=== PATIENT | female | born 1935 | race Caucasian/White ===

== ENCOUNTER 2017-10-02 10:01 | Emergency (ER) | payer MEDICARE, MEDICAID ==
--- NOTE | 2017-10-02 10:34 | EDM.PDOC ---
ED HPI GENERAL MEDICAL PROBLEM - General Chief Complaint: General Stated Complaint: ABDOMINAL PAIN/HEADACHE Time Seen by Provider: 10/02/17 10:24 - History of Present Illness INITIAL COMMENTS - FREE TEXT/NARRATIVE: 82-year-old female presents to the emergency room with multiple complaints. The patient is brought in by her fellow sisters. Apparently she's has advanced dementia. Yesterday she slept most the day complaining of abdominal pain and a headache every time she tries and moves she developed significant discomfort in her left knee. She has been having problems with her left knee for nearly a year this seems to be worse after she rests for a little bit gets up and walks around. They're also concerned as the patient stopped her thyroid medication several months ago. They have problems getting her to drink plenty of fluids. She has abdominal discomfort not associated with any nausea vomiting or diarrhea.. Chest Pain Score (Numeric/FACES): 5 Headache Pain Score (Numeric/FACES): 5 - Related Data Allergies Allergy/AdvReac Type Severity Reaction Status Date / Time aspirin Allergy Swollen Verified 10/02/17 10:27 Tongue Penicillins Allergy Swollen Verified 10/02/17 10:27 Tongue phenytoin sodium Allergy Weakness Verified 10/02/17 10:27 [From Dilantin] phenytoin sodium extended Allergy Weakness Verified 10/02/17 10:27 [From Dilantin] Home Meds: Home Meds Isosorbide Mononitrate [Isosorbide Mononitrate ER] 30 mg PO DAILY 04/12/14 [ History] Levothyroxine 25 mcg PO ACBRK 04/12/14 [History] atorvaSTATin [Lipitor] 20 mg PO BEDTIME 04/12/14 [History] Acetaminophen [Tylenol] 325 mg PO Q6H PRN 04/13/14 [History] Calcium Carbonate/Vitamin D2 [Calcium with Vit D] 1 each PO DAILY 04/13/14 [ History] Fluocinonide [Lidex 0.05% Crm] 15 gm .XX DAILY PRN 04/13/14 [History] LORazepam [Ativan] 0.5 mg PO BID PRN 04/13/14 [History] Multivitamin [Multi-Vitamin Daily] 1 each PO DAILY 04/13/14 [History] Nitroglycerin [Nitrostat] 0.4 mg SL DAILY PRN 06/20/14 [History] Polyethylene Glycol 3350 [MiraLAX] 17 gm PO DAILY PRN 04/13/14 [History] Triamcinolone Acetonide [Triamcinolone Acetonide 0.1% Crm] 15 gm TOP DAILY 04/13 [History] lamoTRIgine 100 mg PO BID #60 tablet 11/01/14 [Rx] Social & Family History - Tobacco Use Smoking Status *Q: Never Smoker Second Hand Smoke Exposure: No - Alcohol Use Days Per Week of Alcohol Use: 0 - Recreational Drug Use Recreational Drug Use: No Drug Use in Last 12 Months: No ED ROS GENERAL - Review of Systems Review Of Systems: See Below Constitutional: Reports: No Symptoms HEENT: Reports: No Symptoms Respiratory: Reports: No Symptoms Cardiovascular: Reports: No Symptoms Endocrine: Reports: No Symptoms GI/Abdominal: Reports: Abdominal Pain : Reports: No Symptoms Musculoskeletal: Reports: Other (Left knee pain) Skin: Reports: No Symptoms Neurological: Reports: Confusion Psychiatric: Reports: Other (Dementia) ED EXAM, GENERAL - Physical Exam Exam: See Below Exam Limited By: Other (She has dementia) Eye Exam: Bilateral Eye: Normal Inspection, PERRL Ears: Normal External Exam, Normal Canal, Hearing Grossly Normal, Normal TMs Nose: Normal Inspection, Normal Mucosa, No Blood Throat/Mouth: Normal Inspection, Normal Lips, Normal Gums, Normal Oropharynx, Normal Voice, No Airway Compromise Head: Atraumatic, Normocephalic Neck: Normal Inspection, Supple, Non-Tender, Full Range of Motion. No: Lymphadenopathy (L), Lymphadenopathy (R) Respiratory/Chest: No Respiratory Distress, Lungs Clear Cardiovascular: Regular Rate, Rhythm, No Edema, No Murmur GI/Abdominal: Normal Bowel Sounds, Soft, Other (She has some vague discomfort interestingly she complains of knee pain with palpation of her abdomen her abdomen is otherwise soft no distention no rebound or guarding) Extremities: Normal Inspection, No Pedal Edema Neurological: Confused EKG INTERPRETATION EKG Date: 10/02/17 Rhythm: NSR Marty: LAD-Left Marty Deviation P-Wave: Present QRS: Normal ST-T: Normal QT: Normal Comparison: NA - No Prior EKG Course - Vital Signs Last Recorded V/S: Last Vital Signs Temp 36.8 C 10/02/17 10:27 Pulse 80 10/02/17 10:27 Resp BP 155/83 H 10/02/17 10:27 Pulse Ox 94 L 10/02/17 10:27 - Orders/Labs/Meds Orders: Active Orders 24 hr Category Date Time Status EKG Documentation Completion [RC] ASDIRECTED Care 10/02/17 10:39 Active Insert De Souza Catheter [Insert Urinary Catheter] [OM.PC] Care 10/02/17 11:05 Ordered Stat Urinary Catheter Assessment [RC] ASDIRECTED Care 10/02/17 11:05 Active Chest 1V Frontal [CR] Stat Exams 10/02/17 10:52 Taken Knee 3V Lt [CR] Stat Exams 10/02/17 10:53 Taken EKG 12 Lead [EK] Stat Ther 10/02/17 10:39 Ordered Labs: Laboratory Tests 10/02/17 10/02/17 10/02/17 Range/Units 11:05 11:10 11:10 WBC 8.06 (3.98-10.04) K/mm3 RBC 4.41 (3.98-5.22) M/mm3 Hgb 13.3 (11.2-15.7) gm/L Hct 40.2 (34.1-44.9) % MCV 91.2 (79.4-94.8) fl MCH 30.2 (25.6-32.2) pg MCHC 33.1 (32.2-35.5) g/dl RDW Std Deviation 42.7 (36.4-46.3) fL Plt Count 217 (182-369) K/mm3 MPV 9.5 (9.4-12.3) fl Neutrophils % (Manual) 64 H (40-60) % Band Neutrophils % 0 (0-10) % Lymphocytes % (Manual) 23 (20-40) % Atypical Lymphs % 0 % Monocytes % (Manual) 11 H (2-10) % Eosinophils % (Manual) 0 L (0.7-5.8) % Basophils % (Manual) 2 H (0.1-1.2) Platelet Estimate Adequate Anisocytosis 1+ slight RBC Morph Comment Abnormal Sodium 144 (136-145) mEq/L Potassium 3.7 (3.5-5.1) mEq/L Chloride 107 (98-107) mEq/L Carbon Dioxide 26 (21-32) mEq/L Anion Gap 14.7 (5-15) BUN 28 H (7-18) mg/dL Creatinine 1.0 (0.55-1.02) mg/dL Est Cr Clr Drug Dosing 33.71 mL/min Estimated GFR (MDRD) 53 (>60) mL/min BUN/Creatinine Ratio 28.0 H (14-18) Glucose 91 (83-115) mg/dL Calcium 9.6 (8.5-10.1) mg/dL Total Bilirubin 0.7 (0.2-1.0) mg/dL AST 20 (15-37) U/L ALT 23 (14-59) U/L Alkaline Phosphatase 64 (46-116) U/L Troponin I < 0.017 (0.00-0.056) ng/mL Total Protein 7.0 (6.4-8.2) g/dl Albumin 3.8 (3.4-5.0) g/dl Globulin 3.2 gm/dL Albumin/Globulin Ratio 1.2 (1-2) TSH 3rd Generation 2.210 (0.358-3.74) uIU/mL Urine Color Yellow (Yellow) Urine Appearance Clear (Clear) Urine pH 6.5 (5.0-8.0) Ur Specific [place] 1.020 (1.005-1.030) Urine Protein 1+ H (Negative) Urine Glucose (UA) Negative (Negative) Urine Ketones 1+ H (Negative) Urine Occult Blood 1+ H (Negative) Urine Nitrite Negative (Negative) Urine Bilirubin Negative (Negative) Urine Urobilinogen 0.2 (0.2-1.0) Ur Leukocyte Esterase Negative (Negative) Urine RBC 0-5 (0-5) /hpf Urine WBC 0-5 (0-5) /hpf Ur Epithelial Cells 0-5 (0-5) /hpf Urine Bacteria Rare (FEW) /hpf Hyaline Casts 5-10 H (0-5) /lpf Urine Mucus Moderate H (FEW) /hpf Meds: Medications Discontinued Medications Generic Name Dose Route Start Last Admin Trade Name Freq PRN Reason Stop Dose Admin Acetaminophen 650 mg 10/02/17 11:17 10/02/17 12:20 Tylenol PO 10/02/17 11:18 Not Given ONETIME ONE Acetaminophen 650 mg 10/02/17 12:13 10/02/17 12:18 Tylenol PO 10/02/17 12:14 650 mg NOW ONE Administration - Re-Assessments/Exams Free Text/Narrative Re-Assessment/Exam: 10/02/17 13:15 Patient received 650 mg Tylenol feels much better her headache is not any pain is not her belly pain is gone R evaluation is unrevealing TSH is in the normal range x-ray of her chest is negative EKG nonrevealing x-ray of her knee shows extensive arthritis. Departure - Departure Time of Disposition: 13:15 Disposition: Home, Self-Care 01 Clinical Impression: Arthritis of left knee, Cephalgia - Discharge Information Referrals: PCP,None [Primary Care Provider] - Forms: ED Department Discharge Additional Instructions: Return to the emergency room with any questions problems worsening symptoms. Follow up with her regular physician in one week or so. Use Tylenol regular strength one or 2 every 6 hours as needed for pain. It is essential that you drink more fluids such as water or Gatorade. Push this until you are voiding every couple of hours during the day. Most year daily fluids should be taken in the morning and early afternoon. - My Orders Last 24 Hours: My Active Orders 10/02/17 10:39 EKG Documentation Completion [RC] ASDIRECTED EKG 12 Lead [EK] Stat 10/02/17 10:52 Chest 1V Frontal [CR] Stat 10/02/17 10:53 Knee 3V Lt [CR] Stat 10/02/17 11:05 Insert De Souza Catheter [Insert Urinary Catheter] [OM.PC] Stat Urinary Catheter Assessment [RC] ASDIRECTED - Assessment/Plan Last 24 Hours: My Active Orders 10/02/17 10:39 EKG Documentation Completion [RC] ASDIRECTED EKG 12 Lead [EK] Stat 10/02/17 10:52 Chest 1V Frontal [CR] Stat 10/02/17 10:53 Knee 3V Lt [CR] Stat 10/02/17 11:05 Insert De Souza Catheter [Insert Urinary Catheter] [OM.PC] Stat Urinary Catheter Assessment [RC] ASDIRECTED
[2017-10-02] MEDS ORDERED: Acetaminophen Soln 650 MG/20.3 ML UD Cup PO ONE (11:17)
[2017-10-02] MEDS ORDERED: Acetaminophen 325 MG Tab PO ONE (12:13)
[2017-10-02 13:55] VITALS: BP 163/74
--- NOTE | 2017-10-02 16:07 | CR ---
Left knee: AP, lateral and sunrise patellar views of the left knee were obtained. Comparison: No prior left knee exam is available. Moderate to severe narrowing is seen within the lateral compartment. Medial joint is preserved. Osteophyte is noted off the lateral tibial margin. Mild osteophytes are seen off the patellofemoral joint. Very minimal joint effusion is seen. Bony structures are osteopenic. Nothing acute is identified. Impression: 1. Degenerative change and osteopenia. 2. Minimal joint effusion. Diagnostic code #2
--- NOTE | 2017-10-02 16:07 | CR ---
Chest: Frontal view of the chest was obtained. Comparison: Prior chest x-ray of 10/30/14. Heart size and mediastinum are within normal limits for the patient's age. Right shoulder prosthesis is noted. Lungs are clear. Scattered degenerative change noted within the spine as well as degenerative change within the left shoulder. Impression: 1. Incidental findings as noted above. Nothing acute is appreciated on frontal chest x-ray. Diagnostic code #2
== END 2017-10-02 13:30 | disposition home or self-care (01) ==
LOC: JD.ED 10:01
DX: M17.12 Unilateral primary osteoarthritis, left knee (principal); R51 Headache; Z88.6 Allergy status to analgesic agent; Z88.0 Allergy status to penicillin; Z88.8 Allergy status to other drugs, medicaments and biological substances; Z79.899 Other long term (current) drug therapy
CPT/HCPCS: 36415; 51702; 71010; 73562; 80053; 81001; 84443; 84484; 85025; 93005; 99285; A9270; P9612; 93010; 99284

== ENCOUNTER 2017-12-17 22:30 | Emergency (ER) | payer MEDICARE, MEDICAID ==
[2017-12-17 22:35] VITALS: BP 163/69
--- NOTE | 2017-12-17 23:23 | EDM.PDOC ---
ED HPI GENERAL MEDICAL PROBLEM - General Chief Complaint: Neurological Problem Stated Complaint: [facility] Time Seen by Provider: 12/17/17 23:12 Source of Information: Reports: Patient, [facility] Records History Limitations: Reports: No Limitations - History of Present Illness INITIAL COMMENTS - FREE TEXT/NARRATIVE: 82-year-old female currently a resident of [facility] presents to the ED per ambulance. She is able to provide a very thorough history. She states she got up to walk away from the dining area and her walker came in contact with the wall causing her to fall. She states she bumped the back of her head on the wall on the way down to the floor but went out to the floor fairly gently. Did not get knocked out. Subsequently she has not had any nausea vomiting. The care workers identified that her pupils appeared to be unequal and this is what helped precipitate transfer to [facility]. She states she bumped the back of her head i.e. occipital vertex part of her scalp without any residual pain or swelling. She has no pain in her neck. She denies pain in her elbows wrists or shoulders ribs or spine. Denies any pain in her low back or but talks. No hip pain. She is alert and oriented and answers all questions appropriately. She does wear eyeglasses. She does not use any drops in her eyes other than some artificial tears once in a while. She has no history of glaucoma or eye trauma. Onset: Today Onset Date: 12/17/17 Onset Time: 21:45 Duration: Minutes:, Hour(s): Location: Reports: Head Quality: Reports: Other Severity: Mild (She denies having even a headache at this time.) Improves with: Reports: None Worsens with: Reports: None Context: Reports: Trauma (Got tripped up with her walker when it struck the wall causing her to lose her balance and fall to the floor slowly. She states she banged the back of her head on the wall on the way to the floor.) Associated Symptoms: Reports: No Other Symptoms Treatments NUTRITION WORKER: Reports: Other (see below) (None.) - Related Data Allergies Allergy/AdvReac Type Severity Reaction Status Date / Time aspirin Allergy Swollen Verified 10/02/17 10:27 Tongue Penicillins Allergy Swollen Verified 10/02/17 10:27 Tongue phenytoin sodium Allergy Weakness Verified 10/02/17 10:27 [From Dilantin] phenytoin sodium extended Allergy Weakness Verified 10/02/17 10:27 [From Dilantin] Home Meds: Home Meds Levothyroxine 25 mcg PO ACBRK 04/12/14 [History] atorvaSTATin [Lipitor] 20 mg PO BEDTIME 04/12/14 [History] Acetaminophen [Tylenol] 650 mg PO Q12H PRN 04/13/14 [History] Nitroglycerin [Nitrostat] 0.4 mg SL DAILY PRN 04/13/14 [History] Polyethylene Glycol 3350 [MiraLAX] 17 gm PO DAILY PRN 04/13/14 [History] lamoTRIgine 100 mg PO BID #60 tablet 11/01/14 [Rx] Baclofen 10 mg PO TID PRN 10/02/17 [History] Lisinopril 2.5 mg PO DAILY 12/17/17 [History] Metoprolol Succinate [Toprol XL] 25 mg PO DAILY 12/17/17 [History] Ondansetron HCl [Zofran] 1 tab PO Q8H PRN 12/17/17 [History] Ranitidine HCl [Zantac] 150 mg PO BEDTIME 12/17/17 [History] Sertraline [Zoloft] 25 mg PO DAILY 12/17/17 [History] Past Medical History Cardiovascular History: Reports: High Cholesterol, Hypertension Neurological History: Reports: Seizure Psychiatric History: Reports: Dementia, Depression Endocrine/Metabolic History: Reports: Hypothyroidism (And is on replacement therapy.) Dermatologic History: Reports: Other (See Below) Other Dermatologic History: very dry and flakey skin - Past Surgical History HEENT Surgical History: Reports: Tonsillectomy GI Surgical History: Reports: Appendectomy Social & Family History - Tobacco Use Smoking Status *Q: Never Smoker Second Hand Smoke Exposure: No - Caffeine Use Caffeine Use: Reports: Coffee, Soda - Alcohol Use Days Per Week of Alcohol Use: 0 - Recreational Drug Use Recreational Drug Use: No Drug Use in Last 12 Months: No - Living Situation & Occupation Living situation: Reports: Single, Extended Care Facility ([facility]) Occupation: Retired Review of Systems - Review of Systems Review Of Systems: See Below Constitutional: Reports: No Symptoms Eyes: Reports: No Symptoms Ears: Reports: No Symptoms Nose: Reports: No Symptoms Mouth/Throat: Reports: No Symptoms Respiratory: Reports: No Symptoms Cardiovascular: Reports: No Symptoms GI/Abdominal: Reports: No Symptoms Genitourinary: Reports: Other (Does have some urgency incontinence at times.) Musculoskeletal: Reports: Joint Pain (Knees hips shoulders at times.) Skin: Reports: Other (Has chronic eczematous dermatitis which is quite pruritic degree upper and lower extremities.) Neurological: Reports: No Symptoms Psychiatric: Reports: No Symptoms ED EXAM, GENERAL - Physical Exam Exam: See Below Exam Limited By: No Limitations General Appearance: Alert, WD/WN, No Apparent Distress Eye Exam: Bilateral Eye: Normal Fundi, Other (Pupils are equal. The right pupil is fixed at 5 mm and does not respond to light. This represents previous eye trauma or uveitis. The left eye is 3-4 mm and responds briskly to light.) Ears: Normal TMs Throat/Mouth: Normal Inspection, Normal Lips, Normal Oropharynx, Other Head: Other (No sign of injury to her teeth or her tongue. No palpable hematoma of the scalp or skull appreciated.) Neck: Normal Inspection, Supple, Non-Tender, Full Range of Motion. No: Lymphadenopathy (L), Lymphadenopathy (R) Respiratory/Chest: No Respiratory Distress, Lungs Clear, Normal Breath Sounds, Chest Non-Tender, Other Cardiovascular: Normal Peripheral Pulses, Regular Rate, Rhythm, No Edema, No Gallop, No Murmur Peripheral Pulses: 2+: Posterior Tibial (L), Posterior Tibial (R), Dorsalis Pedis (L), Dorsalis Pedis (R) GI/Abdominal: Normal Bowel Sounds, Soft, Non-Tender, No Organomegaly, No Abnormal Bruit, No Mass, Pelvis Stable Back Exam: Normal Inspection, Full Range of Motion, Other (No contusions or abrasions to her back). No: CVA Tenderness (L), CVA Tenderness (R) Extremities: Normal Inspection, Normal Range of Motion, Non-Tender, No Pedal Edema, Other (She lifts both legs off the gurney better than I can. There is no evidence of injuries to the hips knees elbows shoulders wrists or hands.) Neurological: Alert, Oriented, CN II-XII Intact, Normal Cognition, No Motor/ Sensory Deficits Psychiatric: Normal Affect, Normal Mood Skin Exam: Warm, Dry, Intact, Normal Color, No Rash Course - Vital Signs Last Recorded V/S: Last Vital Signs Temp 36.2 C 12/17/17 22:33 Pulse 90 12/17/17 22:33 Resp 18 12/17/17 22:33 BP 163/69 H 12/17/17 22:33 Pulse Ox 97 12/17/17 22:33 - Orders/Labs/Meds Orders: Active Orders 24 hr Category Date Time Status Head wo Cont [CT] Stat Exams 12/17/17 23:22 Taken - Radiology Interpretation Free Text/Narrative:: 82-year-old female brought to the ED per mL is due to anisocoria. She suffered a fall after she bumped into the wall with her walker which precipitated a fall with her bathing the exceptional aspect of her head on the back of the wall on the way to the floor. She states she went down to the floor slowly. She denies any other injuries and she has full recollection of all the events that occurred. She did not think that she had been injured. Her eyes however on examination suggested anisocoria with one pupil being larger than the other. On my examination she has a fixed right cornea. 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 She denies any previous eye trauma. Clinically there is no evidence of glaucoma. The left pupil is 4 mm and respond briskly to light. There is no light response to the right pupil. This will be forever. The rest of her neurological exam and complete body examination is negative for any signs of significant trauma. Triage nurse's ordered CT head as a precaution due to the nature of her fall. - Re-Assessments/Exams Free Text/Narrative Re-Assessment/Exam: 12/18/17 00:24 CT scan of the head has been completed. It reveals no skull fractures. It reveals no intracranial mass or mass effect and no intracranial bleeding. There is evidence of age-appropriate degenerative changes with mild encephalomalacia at the anterior horns of the lateral ventricles bilaterally. There is diffuse small vessel ischemic changes both basal ganglia. No infarcts were identified patient will therefore be discharged back to [facility] for ongoing care. 12/18/17 01:07 [facility] and ambulance is here to provide transport back to [facility]. Patient was discharged into their care. Departure - Departure Time of Disposition: 00:25 Disposition: DC/[facility]fer to [facility] Condition: Good Clinical Impression: Minor closed head injury, Fixed pupil of right eye - Discharge Information Instructions: Head Injury, Adult, [id number] Referrals: Mariely Meza MD [Primary Care Provider] - Forms: ED Department Discharge Additional Instructions: Evaluation the emergency room was carried out tonight after you got tripped up with her walker and struck the wall. Disconjugate to fall backwards against the wall striking the back of your occipital head on the wall and as you suggested sliding slowly down to the floor. There was no loss of consciousness and you have for memory for everything that happened. Care workers identify that you had unequal pupils and this became a concern. Year neuro exam in the emergency room was completely within normal limits. Examination of the eyes shows a day a fixed pupillary deficit on the right side likely due to previous trauma injury or infection of the uvea.. It will never respond normally to light. The left pupil is 4-5 mm in size and respond briskly to light appropriately. CT of the brain completed reveals no skull fractures or intracranial bleeding or mass effect. There are age related degenerative changes. Therefore you are to be discharged back to care Center to continue all activities and medications as previous. - My Orders Last 24 Hours: My Active Orders 12/17/17 23:22 Head wo Cont [CT] Stat - Assessment/Plan Last 24 Hours: My Active Orders 12/17/17 23:22 Head wo Cont [CT] Stat
--- NOTE | 2017-12-18 14:04 | CT ---
Head CT Technique: Multiple axial sections through the brain were obtained. Intravenous contrast was not utilized. Comparison: Prior head CT exam of 10/30/14. Findings: Ventricles along with basal cisterns and sulci over the convexities are mildly to moderately prominent. Mild diminished density is noted within the periventricular and subcortical white matter compatible with small vessel ischemic demyelination change. 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 No evidence of intracranial hemorrhage. No midline shift or mass effect is seen. Visualized paranasal sinuses are clear. No acute calvarial abnormality is identified. Impression: 1. Senescent change as described above. No acute abnormality is identified on noncontrast head CT study. Diagnostic code #2 I agree with preliminary report issued by [employer] [facility] ([facility] preliminary report dictated on 12/18/17, 12:39 AM Central Time)
== END 2017-12-18 00:40 ==
LOC: JD.ED 22:30 → SUPCPDRO 22:30 → JD.ED 12-18 00:40
DX: S09.90XA Unspecified injury of head, initial encounter (principal); H21.561 Pupillary abnormality, right eye; I10 Essential (primary) hypertension; E78.00 Pure hypercholesterolemia, unspecified; F32.9 Major depressive disorder, single episode, unspecified; E03.9 Hypothyroidism, unspecified; Z79.899 Other long term (current) drug therapy; W01.10XA Fall on same level from slipping, tripping and stumbling with subsequent striking against unspecified object, initial encounter
CPT/HCPCS: 70450; 70450-26; 99284; 99285-25

== ENCOUNTER 2019-01-15 22:14 | Emergency (ER) | payer MEDICARE, MEDICAID ==
--- NOTE | 2019-01-15 22:57 | EDM.PDOC ---
ED HPI GENERAL MEDICAL PROBLEM - General Chief Complaint: Neuro Symptoms/Deficits Stated Complaint: DIZZY ECT SENT MICHELLE CHURCH Time Seen by Provider: 01/15/19 22:52 Source of Information: Reports: Patient, Other (care provider from snf. ) History Limitations: Reports: No Limitations - History of Present Illness INITIAL COMMENTS - FREE TEXT/NARRATIVE: 83-year-old female presents to the ED per ambulance from local snf. Family she developed a spell where she was confused and completely disoriented and could not verbally communicate which he usually is able to do so. They felt that her right pupil is more dilated than the left. They note that she has not fallen or hit her head at all in the last day or 2. Patient converses with me in the basal commands. She has underlying dementia. CODE STATUS is listed as DO NOT RESUSCITATE. No noted fever chills and apparently she's been eating and drinking normally. The Provider this with her states that normally she could've obeyed and aassisted with my examination as she did when she was in the ED. Onset: Today Onset Date: 01/15/19 Onset Time: 22:00 Duration: Hour(s):, Resolved Prior to Arrival Location: Reports: Generalized (Underlies sense of confusion disorientation apparently O2 sats were recorded at 86% transiently.) Quality: Reports: Other (She denies any pain or nausea.) Severity: Moderate Improves with: Reports: Other Worsens with: Reports: None (He seems to be better now neurologically intact as discussed with the care provider this with her at this time) Context: Denies: Activity, Exercise, Lifting, Sick Contact, Trauma, Other Associated Symptoms: Reports: Confusion. 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.) - Related Data Allergies Allergy/AdvReac Type Severity Reaction Status Date / Time aspirin Allergy Swollen Verified 01/15/19 23:03 Tongue Penicillins Allergy Swollen Verified 01/15/19 23:03 Tongue phenytoin sodium Allergy Weakness Verified 01/15/19 23:03 [From Dilantin] phenytoin sodium extended Allergy Weakness Verified 01/15/19 23:03 [From Dilantin] Home Meds: Home Meds Levothyroxine 25 mcg PO ACBRK 04/12/14 [History] atorvaSTATin [Lipitor] 20 mg PO BEDTIME 04/12/14 [History] Acetaminophen [Tylenol] 650 mg PO Q12H PRN 04/13/14 [History] Nitroglycerin [Nitrostat] 0.4 mg SL DAILY PRN 04/13/14 [History] Polyethylene Glycol 3350 [MiraLAX] 17 gm PO DAILY PRN 04/13/14 [History] lamoTRIgine 100 mg PO BID #60 tablet 11/01/14 [Rx] Baclofen 10 mg PO TID PRN 10/02/17 [History] Lisinopril 2.5 mg PO DAILY 12/17/17 [History] Metoprolol Succinate [Toprol XL] 25 mg PO DAILY 12/17/17 [History] Ondansetron HCl [Zofran] 1 tab PO Q8H PRN 12/17/17 [History] Ranitidine HCl [Zantac] 150 mg PO BEDTIME 12/17/17 [History] Sertraline [Zoloft] 25 mg PO DAILY 12/17/17 [History] Past Medical History Cardiovascular History: Reports: High Cholesterol, Hypertension Neurological History: Reports: Seizure Psychiatric History: Reports: Dementia, Depression Endocrine/Metabolic History: Reports: Hypothyroidism (And is on replacement therapy.) Dermatologic History: Reports: Other (See Below) Other Dermatologic History: very dry and flakey skin - Past Surgical History HEENT Surgical History: Reports: Cataract Surgery (Both sides. Has anisocoria on the right side due to previous cataract surgery), Tonsillectomy GI Surgical History: Reports: Appendectomy Social & Family History - Caffeine Use Caffeine Use: Reports: Coffee, Soda - Living Situation & Occupation Living situation: Reports: Single, Extended Care Facility ([facility]) Occupation: Retired ED ROS GENERAL - Review of Systems Review Of Systems: Unable To Obtain (Unable to obtain with any degree of certainty due to underlying dementia. History is provided primarily by the care provider.) ED EXAM, NEURO - Physical Exam Exam: See Below Exam Limited By: Altered Mental Status (Mild dementia but she obeys all my commands. Comply with a complete neuro exam without any issues. Verbally intact and with no dysarthria.) General Appearance: Alert, WD/WN, No Apparent Distress, Other (She does not feel warm to palpation.) Eye Exam: Bilateral Eye: PERRL (Right pupil is fixed and dilated due to previous surgery.) Throat/Mouth: Normal Inspection, Normal Lips, Normal Oropharynx, Other Head Exam: Atraumatic, Normocephalic (Tongue is mildly dry.) Neck: Normal Inspection, Supple, Non-Tender, Full Range of Motion. No: Lymphadenopathy (L), Lymphadenopathy (R) Respiratory/Chest: No Respiratory Distress, Lungs Clear, Normal Breath Sounds, No Accessory Muscle Use Cardiovascular: Normal Peripheral Pulses, Regular Rate, Rhythm, No Edema, No Gallop, No Murmur, No Rub GI/Abdominal: Normal Bowel Sounds, Soft, Non-Tender, No Organomegaly, No Abnormal Bruit, No Mass, Pelvis Stable Neurological: Alert, Normal Mood/Affect, Normal Dorsiflexion, CN II-XII Intact, Normal Plantar Flexion, Normal Reflexes, No Motor/Sensory Deficits. No: Oriented x 3 Back Exam: Other Extremities: Normal Inspection, Normal Range of Motion, Non-Tender Psychiatric: Flat Affect Skin Exam: Warm, Dry, Intact, Normal Color, No Rash EKG INTERPRETATION EKG Date: 01/15/19 Time: 22:40 Rhythm: NSR Rate (Beats/Min): 66 [place]: LAD-Left Dorado Deviation P-Wave: Enlarged (Mild left axis deviation -7 left atrial hypertrophy.) QRS: Other (Early R-wave transition V3 consider septal hypertrophy pattern Q- wave in lead 3 only. Disagree with computer reading of ST elevation in the inferior wall.) ST-T: Other (Diffuse early repolarization pattern) QT: Prolonged EKG Interpretation Comments: Abnormal ECG Course - Vital Signs Last Recorded V/S: Last Vital Signs Temp 36.6 C 01/15/19 22:20 Pulse 86 01/15/19 22:20 Resp 16 01/15/19 22:20 BP 205/94 H 01/15/19 22:20 Pulse Ox 97 01/15/19 22:20 - Orders/Labs/Meds Orders: Active Orders 24 hr Category Date Time Status EKG Documentation Completion [RC] STAT Care 01/15/19 22:30 Active Ang Chest [CT] Stat Exams 01/16/19 00:10 Taken Chest 1V Frontal [CR] Stat Exams 01/15/19 22:56 Taken Head wo Cont [CT] Stat Exams 01/15/19 22:29 Taken Labs: Laboratory Tests 01/15/19 01/15/19 01/15/19 Range/Units 22:25 22:26 22:26 WBC 9.06 (3.98-10.04) K/mm3 RBC 4.52 (3.98-5.22) M/mm3 Hgb 13.7 (11.2-15.7) gm/L Hct 41.6 (34.1-44.9) % MCV 92.0 (79.4-94.8) fl MCH 30.3 (25.6-32.2) pg MCHC 32.9 (32.2-35.5) g/dl RDW Std Deviation 43.1 (36.4-46.3) fL Plt Count 243 (182-369) K/mm3 MPV 9.2 L (9.4-12.3) fl Neutrophils % (Manual) 83 H (40-60) % Band Neutrophils % 0 (0-10) % Lymphocytes % (Manual) 10 L (20-40) % Atypical Lymphs % 0 % Monocytes % (Manual) 6 (2-10) % Eosinophils % (Manual) 0 L (0.7-5.8) % Basophils % (Manual) 1 (0.1-1.2) Platelet Estimate Adequate Plt Morphology Comment Normal RBC Morph Comment Normal PT 10.0 (9.5-12.1) SECONDS INR < 0.93 APTT 25 (24-31) SECONDS D-Dimer, Quantitative (0.19-0.50) mg/L Sodium (136-145) mEq/L Potassium (3.5-5.1) mEq/L Chloride (98-107) mEq/L Carbon Dioxide (21-32) mEq/L Anion Gap (5-15) BUN (7-18) mg/dL Creatinine (0.55-1.02) mg/dL Est Cr Clr Drug Dosing Estimated GFR (MDRD) (>60) mL/min BUN/Creatinine Ratio (14-18) Glucose (83-115) mg/dL POC Glucose 115 H (83-110) mg/dL Calcium (8.5-10.1) mg/dL Magnesium (1.8-2.4) mg/dl Total Bilirubin (0.2-1.0) mg/dL AST (15-37) U/L ALT (14-59) U/L Alkaline Phosphatase (46-116) U/L Troponin I (0.00-0.056) ng/mL NT-Pro-B Natriuret Pep (0-450) pg/mL Total Protein (6.4-8.2) g/dl Albumin (3.4-5.0) g/dl Globulin gm/dL Albumin/Globulin Ratio (1-2) Urine Color (Yellow) Urine Appearance (Clear) Urine pH (5.0-8.0) Ur Specific [place] (1.005-1.030) Urine Protein (Negative) Urine Glucose (UA) (Negative) Urine Ketones (Negative) Urine Occult Blood (Negative) Urine Nitrite (Negative) Urine Bilirubin (Negative) Urine Urobilinogen (0.2-1.0) Ur Leukocyte Esterase (Negative) Urine RBC (0-5) /hpf Urine WBC (0-5) /hpf Ur Epithelial Cells Ur Squamous Epith Cells (0-5) /hpf Urine Bacteria (FEW) /hpf Urine Mucus (FEW) /hpf 01/15/19 01/15/19 01/15/19 Range/Units 22:26 22:26 22:26 WBC (3.98-10.04) K/mm3 RBC (3.98-5.22) M/mm3 Hgb (11.2-15.7) gm/L Hct (34.1-44.9) % MCV (79.4-94.8) fl MCH (25.6-32.2) pg MCHC (32.2-35.5) g/dl RDW Std Deviation (36.4-46.3) fL Plt Count (182-369) K/mm3 MPV (9.4-12.3) fl Neutrophils % (Manual) (40-60) % Band Neutrophils % (0-10) % Lymphocytes % (Manual) (20-40) % Atypical Lymphs % % Monocytes % (Manual) (2-10) % Eosinophils % (Manual) (0.7-5.8) % Basophils % (Manual) (0.1-1.2) Platelet Estimate Plt Morphology Comment RBC Morph Comment PT (9.5-12.1) SECONDS INR APTT (24-31) SECONDS D-Dimer, Quantitative 1.30 H (0.19-0.50) mg/L Sodium 143 (136-145) mEq/L Potassium 4.4 (3.5-5.1) mEq/L Chloride 106 (98-107) mEq/L Carbon Dioxide 28 (21-32) mEq/L Anion Gap 13.4 (5-15) BUN 14 (7-18) mg/dL Creatinine 1.0 (0.55-1.02) mg/dL Est Cr Clr Drug Dosing TNP Estimated GFR (MDRD) 53 (>60) mL/min BUN/Creatinine Ratio 14.0 (14-18) Glucose 112 (83-115) mg/dL POC Glucose (83-110) mg/dL Calcium 9.5 (8.5-10.1) mg/dL Magnesium 2.0 (1.8-2.4) mg/dl Total Bilirubin 0.3 (0.2-1.0) mg/dL AST 17 (15-37) U/L ALT 24 (14-59) U/L Alkaline Phosphatase 93 (46-116) U/L Troponin I < 0.017 (0.00-0.056) ng/mL NT-Pro-B Natriuret Pep (0-450) pg/mL Total Protein 7.8 (6.4-8.2) g/dl Albumin 4.0 (3.4-5.0) g/dl Globulin 3.8 gm/dL Albumin/Globulin Ratio 1.1 (1-2) Urine Color (Yellow) Urine Appearance (Clear) Urine pH (5.0-8.0) Ur Specific [place] (1.005-1.030) Urine Protein (Negative) Urine Glucose (UA) (Negative) Urine Ketones (Negative) Urine Occult Blood (Negative) Urine Nitrite (Negative) Urine Bilirubin (Negative) Urine Urobilinogen (0.2-1.0) Ur Leukocyte Esterase (Negative) Urine RBC (0-5) /hpf Urine WBC (0-5) /hpf Ur Epithelial Cells Ur Squamous Epith Cells (0-5) /hpf Urine Bacteria (FEW) /hpf Urine Mucus (FEW) /hpf 01/15/19 01/15/19 Range/Units 22:26 22:58 WBC (3.98-10.04) K/mm3 RBC (3.98-5.22) M/mm3 Hgb (11.2-15.7) gm/L Hct (34.1-44.9) % MCV (79.4-94.8) fl MCH (25.6-32.2) pg MCHC (32.2-35.5) g/dl RDW Std Deviation (36.4-46.3) fL Plt Count (182-369) K/mm3 MPV (9.4-12.3) fl Neutrophils % (Manual) (40-60) % Band Neutrophils % (0-10) % Lymphocytes % (Manual) (20-40) % Atypical Lymphs % % Monocytes % (Manual) (2-10) % Eosinophils % (Manual) (0.7-5.8) % Basophils % (Manual) (0.1-1.2) Platelet Estimate Plt Morphology Comment RBC Morph Comment PT (9.5-12.1) SECONDS INR APTT (24-31) SECONDS D-Dimer, Quantitative (0.19-0.50) mg/L Sodium (136-145) mEq/L Potassium (3.5-5.1) mEq/L Chloride (98-107) mEq/L Carbon Dioxide (21-32) mEq/L Anion Gap (5-15) BUN (7-18) mg/dL Creatinine (0.55-1.02) mg/dL Est Cr Clr Drug Dosing Estimated GFR (MDRD) (>60) mL/min BUN/Creatinine Ratio (14-18) Glucose (83-115) mg/dL POC Glucose (83-110) mg/dL Calcium (8.5-10.1) mg/dL Magnesium (1.8-2.4) mg/dl Total Bilirubin (0.2-1.0) mg/dL AST (15-37) U/L ALT (14-59) U/L Alkaline Phosphatase (46-116) U/L Troponin I (0.00-0.056) ng/mL NT-Pro-B Natriuret Pep 155 (0-450) pg/mL Total Protein (6.4-8.2) g/dl Albumin (3.4-5.0) g/dl Globulin gm/dL Albumin/Globulin Ratio (1-2) Urine Color Yellow (Yellow) Urine Appearance Clear (Clear) Urine pH 7.5 (5.0-8.0) Ur Specific [place] 1.020 (1.005-1.030) Urine Protein Negative (Negative) Urine Glucose (UA) Negative (Negative) Urine Ketones Negative (Negative) Urine Occult Blood Trace-intact H (Negative) Urine Nitrite Negative (Negative) Urine Bilirubin Negative (Negative) Urine Urobilinogen 0.2 (0.2-1.0) Ur Leukocyte Esterase Negative (Negative) Urine RBC 0-5 (0-5) /hpf Urine WBC 0-5 (0-5) /hpf Ur Epithelial Cells Not Reportable Ur Squamous Epith Cells 0-5 (0-5) /hpf Urine Bacteria Not seen (FEW) /hpf Urine Mucus Not seen (FEW) /hpf Meds: Medications Discontinued Medications Generic Name Dose Route Start Last Admin Trade Name Freq PRN Reason Stop Dose Admin Sodium Chloride 1,000 mls @ 150 mls/hr 01/15/19 23:15 01/15/19 23:18 Normal Saline IV 150 mls/hr ASDIRECTED ROSANGELA Administration Sodium Chloride 100 mls @ 75 mls/hr 01/16/19 00:30 01/16/19 00:36 Normal Saline IV 75 mls/hr ASDIRECTED ROSANGELA Administration Iopamidol 100 ml 01/16/19 00:23 01/16/19 00:36 Isovue-370 (76%) IV 01/16/19 00:24 100 ml ONETIME ONE Administration Sodium Chloride 10 ml 01/16/19 00:23 01/16/19 00:36 Saline Flush FLUSH 10 ml ONETIME PRN Administration IV FLUSH - Radiology Interpretation Free Text/Narrative:: 83-year-old female with dementia presents to the ED per ambulance from local snf. A stroke alert was called on this patient for unclear reasons. Apparently she had a transient episode of inability to communicate verbally and seemed to be spaced out indicates provider. She has no recent falls or head injuries. She is not on any blood thinners. At the time of my examination I could find no neurological deficit and patient could obey all commands without any prior. Her speech is also normal without any dysarthria. Heart is sinus with no murmurs identified. Is afebrile. Her sats recorded as 86% transiently. Therefore this brings into question whether she could've had a pulmonary embolism. Plan routine labs to be done including BMP and a d-dimer. One view chest x-ray and of course CT head. - Re-Assessments/Exams Free Text/Narrative Re-Assessment/Exam: 01/15/19 22:45: CT head reveals age-appropriate appropriate degenerative changes with some encephalomalacia along the anterior posterior horns of the lateral ventricles which are dilated. There is generalized cerebral atrophy particularly with prominence of the gyral sulci. Periventricular subcortical white matter hypodensities consistent with small vessel ischemic to change. There is no intracranial bleeding or mass effect. Therefore no stroke clinically or on CT. Will await labs 01/15/19 23:46 Labs reveal a normal white count at 9.06. Differential is 83% neutrophils with no band cells reported. Hemoglobin is 13.7 with hematocrit of 41.6. Platelet count normal 243,000. PT was 10.0 with an INR of less than 0.93. D-dimer is 1.30 mildly elevated. PTT was 25.. Sodium is 143 with potassium of 4.4. Chloride 104 with a bicarbonate of 28. And a gap is 13.4. BUNs 14 with a creatinine of 1.0. T4 is 53. BUN/creatinine ratio is 14.0 glucose is 112. I'll see him is 9.5 magnesium is 2.0. Liver function normal troponin I was less than 0.017. BNP is 155. Total protein is 7.8. Albumin fraction is 4.0. Urinalysis obtained by catheterization shows no signs of infective process. Plan Will proceed with CT pulmonary angiogram to rule out a PE. 01/16/19 01:06 CT pulmonary angiogram has been completed and does not reveal any signs of the pulmonary embolism. There was some movement artifact limiting ability to see any clots within the third and fourth divisions of the pulmonary arteries. Bilateral groundglass opacities with associated interstitial thickening suggestive of congestive heart failure. However her BNP is normal at 155. There is marked cardiomegaly with left atrial enlargement. No pericardial effusion small hiatal hernia noted appreciate a significant degenerative changes throughout the thoracic spine. Therefore the exact cause of sudden change in cognitive function is unclear at this time. The possibility of a TIA exists although it's difficult to assess as the history is a little bit unclear. CT reveals advanced degenerative changes of the brain with small vessel ischemic changes in both basal ganglia which are age-related. No signs of stroke. Lab tests also proved to be normal with no signs of any infection. Urinalysis was also normal. Sometimes the spells can happen in elderly patients with dementia. It's a form of autonomic nervous system dysfunction. At this time no treatment is advised Departure - Departure Time of Disposition: 01:08 Disposition: Home, Self-Care 01 Condition: Fair Clinical Impression: Mental status change resolved - Discharge Information *PRESCRIPTION DRUG MONITORING PROGRAM REVIEWED*: Not Applicable *COPY OF PRESCRIPTION DRUG MONITORING REPORT IN PATIENT CINDY: Not Applicable Instructions: Confusion Referrals: Dipesh Vega MD [Primary Care Provider] - Forms: ED Department Discharge Additional Instructions: Evaluation in the emergency room tonight in regards to transient change in level of consciousness with apparent change in ability to speak and to ambulate. Stroke alert was called upon arrival in the ED but neurological exam was completely normal as well as verbal responses and ability to obey all commands. CT scan of the head reveals advanced degenerative changes related to age and dementia and no signs of any stroke in the past or today. Blood tests were completely normal as was the urinalysis showing no signs of any infection. Because of the reported low oxygen saturation of 86% initially d-dimer was part of her initial workup. It came back mildly elevated at 1.30. This precipitated a CT pulmonary and gram of her chest which proved to be negative for any blood clots in the lungs. Therefore the cause of altered mental status that was transient is unclear. It is possible that she suffered a mild TIA or bolus is unlikely is usually would've produced some paralysis of one side of her body transiently as well as disrupted speech. Leave it is more likely that this was an autonomic nervous system dysfunction related to dementia. Sometimes this means the blood pressure will drop low enough perfused the brain adequately causing neurological type symptoms. At this time no further investigations or treatment is advised. There is a chance of similar events occurring in the future due to the severity of the dementia. - My Orders Last 24 Hours: My Active Orders 01/15/19 22:56 Chest 1V Frontal [CR] Stat 01/16/19 00:10 Ang Chest [CT] Stat - Assessment/Plan Last 24 Hours: My Active Orders 01/15/19 22:56 Chest 1V Frontal [CR] Stat 01/16/19 00:10 Ang Chest [CT] Stat
[2019-01-15 23:03] VITALS: BP 205/94
[2019-01-15] MEDS ORDERED: Sodium Chloride 0.9% 1,000 ML IV SCH (23:15)
[2019-01-16] MEDS ORDERED: Sodium Chloride 0.9% 10 ML Syringe FLUSH PRN (00:23)
[2019-01-16] MEDS ORDERED: Iopamidol 755 Mg/ML 200 ML Bottle IV ONE (00:23)
[2019-01-16] MEDS ORDERED: Sodium Chloride 0.9% 100 ML IV SCH (00:30)
--- NOTE | 2019-01-16 07:41 | CR ---
Chest: Frontal view of the chest is obtained. Comparison: Prior chest x-ray of 10/02/17. Heart size is mildly enlarged. Tortuous thoracic aorta is seen. Pulmonary vessels may be slightly congested. Minimal atelectasis is noted within the left base. Severe degenerative change is noted within the left shoulder. Right shoulder prosthesis is seen. Bony structures are osteopenic. Impression: 1. Slight cardiomegaly and mild pulmonary vascular congestion. 2. Other incidental findings. Diagnostic code #3
--- NOTE | 2019-01-16 07:41 | CT ---
CT chest Technique: Multiple axial sections were obtained from above the lung apices inferiorly through the lung bases. Intravenous contrast was utilized. Study has been performed as a pulmonary angiogram protocol. Comparison: Prior chest x-ray at 01/15/19. Findings: Pulmonary arteries are moderately well-opacified. No filling defects are seen to indicate pulmonary embolism. Mediastinum and hilar region show no adenopathy or mass. Slight calcification is noted within the thoracic aorta. Small portion of the visualized upper abdominal structures show partially visualized small calcified gallstones within the gallbladder. Heart is mildly enlarged. Lungs show mild ground-glass appearance. Lungs otherwise are clear. Bone window settings were reviewed which show right shoulder prosthesis. Scattered disc space narrowing and endplate spurring seen throughout the spine. No acute osseous abnormality is seen. Impression: 1. Cardiomegaly. Mild ground-glass appearance likely representing mild pulmonary vascular congestion. 2. No findings of pulmonary embolism. 3. Partially visualized calcified gallstones. Diagnostic code #3 I agree with preliminary report from [facility], finalized on 01/16/19, 2:13 AM Central Time
--- NOTE | 2019-01-16 07:41 | CT ---
Head CT Technique: Multiple axial sections through the brain were obtained. Intravenous contrast was not utilized. Comparison: Previous head CT study of 12/17/17. Findings: Ventricles along with basal cisterns and sulci over the convexities are mildly to moderately prominent. Diminished density is noted within the periventricular and subcortical white matter compatible with small vessel ischemic demyelination change. Similar findings are seen within the basal ganglia. Several old lacunar infarcts are also noted within the basal ganglia. No other abnormal parenchymal densities are seen. No evidence of intracranial hemorrhage. No midline shift or mass effect is seen. Incidental calcification of the interhemispheric falx is noted. Bone window settings were reviewed which show no discrete calvarial abnormality. Visualized paranasal sinuses are clear. Impression: 1. Senescent change as noted above. No acute intracranial abnormality is appreciated. No change is identified from prior head CT. Diagnostic code #2 I agree with preliminary report from [facility], finalized on 01/15/19, 11:49 PM Central Time
== END 2019-01-16 01:21 | disposition home or self-care (01) ==
LOC: JD.ED 22:14
DX: R41.82 Altered mental status, unspecified (principal); F32.9 Major depressive disorder, single episode, unspecified; E78.00 Pure hypercholesterolemia, unspecified; E03.9 Hypothyroidism, unspecified; I10 Essential (primary) hypertension; Z88.0 Allergy status to penicillin; Z88.2 Allergy status to sulfonamides; Z79.899 Other long term (current) drug therapy
CPT/HCPCS: 36415; 70450; 71045; 71275; 80053; 81001; 82962; 83735; 83880; 84484; 85007; 85027; 85379; 85610; 85730; 93005; 96360; 96361; 99285; J7030; J7040; Q9967; 93010

== ENCOUNTER 2019-03-28 18:42 | Emergency (ER) | payer MEDICARE, MEDICAID ==
[2019-03-28] MEDS ORDERED: Sodium Chloride 0.9% 10 ML Syringe FLUSH PRN (19:02)
--- NOTE | 2019-03-28 19:16 | EDM.PDOC ---
ED HPI GENERAL MEDICAL PROBLEM - General Chief Complaint: Chest Pain Stated Complaint: [facility] Time Seen by Provider: 03/28/19 18:55 Source of Information: Reports: Patient, EMS, Senior Care Records, RN Notes Reviewed - History of Present Illness INITIAL COMMENTS - FREE TEXT/NARRATIVE: 84 year old female has been brought here by [facility] for evaluation for chest pain. She has had several ntg and the pain did resolve enroute to the ED. She describes it as an anterior ache that does radiate to her L shoulder. She has not been noticeably short of breath. Not coughing any more than usual. She did not get nauseated and no abd pain or vomiting. She is a resident at the [facility], has hx of Htn, hypothyroidism, GERD, probable CAD. - Related Data Allergies Allergy/AdvReac Type Severity Reaction Status Date / Time aspirin Allergy Swollen Verified 03/28/19 18:51 Tongue Penicillins Allergy Swollen Verified 03/28/19 18:51 Tongue phenytoin sodium AdvReac Weakness Verified 03/28/19 18:51 [From Dilantin] phenytoin sodium extended AdvReac Weakness Verified 03/28/19 18:51 [From Dilantin] Home Meds: Home Meds atorvaSTATin [Lipitor] 20 mg PO BEDTIME 04/12/14 [History] Acetaminophen [Mapap] 650 mg PO Q12HR 03/28/19 [History] Calcium Carbonate [Tums] 1 tab CHEW BEDTIME PRN 03/28/19 [History] Crisaborole [Eucrisa] 1 applic TOP BID PRN 03/28/19 [History] Dupilumab [Dupixent] 300 mg SQ ASDIRECTED 03/28/19 [History] Levothyroxine 25 mcg PO DAILY 03/28/19 [History] Lidocaine HCl [Aspercreme] 1 applic TOP DAILY PRN 03/28/19 [History] Lisinopril 5 mg PO DAILY 03/28/19 [History] Nitroglycerin [Nitrostat] 0.4 mg SL ASDIRECTED PRN 03/28/19 [History] Ondansetron [Zofran] 4 mg PO Q8H PRN 03/28/19 [History] Ranitidine [Zantac] 150 mg PO BEDTIME 03/28/19 [History] Sertraline [Zoloft] 25 mg PO DAILY 03/28/19 [History] diphenhydrAMINE HCl [Benadryl] 50 mg PO Q8HR PRN 03/28/19 [History] diphenhydrAMINE [Benadryl] 25 mg PO Q8HR PRN 03/28/19 [History] levETIRAcetam [Keppra] 250 mg PO BID 03/28/19 [History] Past Medical History Cardiovascular History: Reports: High Cholesterol, Hypertension Neurological History: Reports: Seizure Psychiatric History: Reports: Dementia, Depression Endocrine/Metabolic History: Reports: Hypothyroidism Dermatologic History: Reports: Other (See Below) Other Dermatologic History: very dry and flakey skin - Past Surgical History HEENT Surgical History: Reports: Cataract Surgery, Tonsillectomy GI Surgical History: Reports: Appendectomy Social & Family History - Caffeine Use Caffeine Use: Reports: Coffee, Soda - Living Situation & Occupation Living situation: Reports: Single, Extended Care Facility ([facility]) Occupation: Retired ED ROS GENERAL - Review of Systems Review Of Systems: See Below Constitutional: Denies: Fever, Chills, Diaphoresis HEENT: Denies: Throat Pain Respiratory: Denies: Shortness of Breath, Wheezing, Cough Cardiovascular: Reports: Chest Pain (gone) GI/Abdominal: Denies: Abdominal Pain, Nausea, Vomiting Musculoskeletal: Reports: Shoulder Pain (gone) Skin: Reports: No Symptoms Neurological: Reports: Headache (gone) ED EXAM, GENERAL - Physical Exam Exam: See Below General Appearance: Alert, No Apparent Distress Eye Exam: Bilateral Eye: PERRL Head: Atraumatic. No: Facial Swelling Neck: Supple, Full Range of Motion Respiratory/Chest: No Respiratory Distress, Lungs Clear, Normal Breath Sounds, Other (tender L sternal border). No: Rhonchi, Wheezing Cardiovascular: Regular Rate, Rhythm GI/Abdominal: Soft, Non-Tender. No: Guarding Back Exam: No: CVA Tenderness (L), CVA Tenderness (R) Extremities: Pedal Edema (trace L leg). No: Leg Pain, Increased Warmth, Redness Skin Exam: Warm, Dry, Normal Color EKG INTERPRETATION EKG Date: 03/28/19 Rhythm: NSR P-Wave: Present QRS: Other (there are q waves lead III) ST-T: Normal QT: Normal Course - Vital Signs Last Recorded V/S: Last Vital Signs Temp 98.1 F 03/28/19 18:48 Pulse 68 03/28/19 20:30 Resp 18 03/28/19 20:30 BP 144/78 H 03/28/19 20:30 Pulse Ox 98 03/28/19 20:30 - Orders/Labs/Meds Orders: Active Orders 24 hr Category Date Time Status EKG 12 Lead [EKG Documentation Completion] [RC] STAT Care 03/28/19 19:03 Active Peripheral IV Care [RC] . DIRECTED Care 03/28/19 19:03 Active Chest 1V Frontal [CR] Stat Exams 03/28/19 19:02 Taken Sodium Chloride 0.9% [Saline Flush] Med 03/28/19 19:02 Active 10 ml FLUSH ASDIRECTED PRN Peripheral IV Insertion Adult [OM.PC] Stat Oth 03/28/19 19:03 Ordered Medication Orders Sodium Chloride (Saline Flush) 10 ml FLUSH ASDIRECTED PRN PRN Reason: Keep Vein Open Last Admin: 03/28/19 19:18 Dose: 10 ml Labs: Laboratory Tests 03/28/19 03/28/19 03/28/19 Range/Units 18:54 18:54 18:54 WBC 8.21 (3.98-10.04) K/mm3 RBC 4.18 (3.98-5.22) M/mm3 Hgb 12.6 (11.2-15.7) gm/L Hct 38.9 (34.1-44.9) % MCV 93.1 (79.4-94.8) fl MCH 30.1 (25.6-32.2) pg MCHC 32.4 (32.2-35.5) g/dl RDW Std Deviation 42.3 (36.4-46.3) fL Plt Count 211 (182-369) K/mm3 MPV 9.8 (9.4-12.3) fl Neut % (Auto) 63.7 (34.0-71.1) % Lymph % (Auto) 21.0 (19.3-51.7) % Cecil % (Auto) 10.5 (4.7-12.5) % Eos % (Auto) 4.1 (0.7-5.8) Baso % (Auto) 0.5 (0.1-1.2) % Neut # (Auto) 5.23 (1.56-6.13) K/mm3 Lymph # (Auto) 1.72 (1.18-3.74) K/mm3 Cecil # (Auto) 0.86 H (0.24-0.36) K/mm3 Eos # (Auto) 0.34 (0.04-0.36) K/mm3 Baso # (Auto) 0.04 (0.01-0.08) K/mm3 Sodium 144 (136-145) mEq/L Potassium 4.1 (3.5-5.1) mEq/L Chloride 109 H (98-107) mEq/L Carbon Dioxide 28 (21-32) mEq/L Anion Gap 11.1 (5-15) BUN 19 H (7-18) mg/dL Creatinine 0.8 (0.55-1.02) mg/dL Est Cr Clr Drug Dosing 38.80 mL/min Estimated GFR (MDRD) > 60 (>60) mL/min BUN/Creatinine Ratio 23.8 H (14-18) Glucose 100 (83-115) mg/dL Calcium 9.1 (8.5-10.1) mg/dL Total Bilirubin 0.3 (0.2-1.0) mg/dL AST 15 (15-37) U/L ALT 21 (14-59) U/L Alkaline Phosphatase 87 (46-116) U/L Troponin I < 0.017 (0.00-0.056) ng/mL NT-Pro-B Natriuret Pep 261 (0-450) pg/mL Total Protein 6.9 (6.4-8.2) g/dl Albumin 3.6 (3.4-5.0) g/dl Globulin 3.3 gm/dL Albumin/Globulin Ratio 1.1 (1-2) 03/28/19 Range/Units 21:00 WBC (3.98-10.04) K/mm3 RBC (3.98-5.22) M/mm3 Hgb (11.2-15.7) gm/L Hct (34.1-44.9) % MCV (79.4-94.8) fl MCH (25.6-32.2) pg MCHC (32.2-35.5) g/dl RDW Std Deviation (36.4-46.3) fL Plt Count (182-369) K/mm3 MPV (9.4-12.3) fl Neut % (Auto) (34.0-71.1) % Lymph % (Auto) (19.3-51.7) % Cecil % (Auto) (4.7-12.5) % Eos % (Auto) (0.7-5.8) Baso % (Auto) (0.1-1.2) % Neut # (Auto) (1.56-6.13) K/mm3 Lymph # (Auto) (1.18-3.74) K/mm3 Cecil # (Auto) (0.24-0.36) K/mm3 Eos # (Auto) (0.04-0.36) K/mm3 Baso # (Auto) (0.01-0.08) K/mm3 Sodium (136-145) mEq/L Potassium (3.5-5.1) mEq/L Chloride (98-107) mEq/L Carbon Dioxide (21-32) mEq/L Anion Gap (5-15) BUN (7-18) mg/dL Creatinine (0.55-1.02) mg/dL Est Cr Clr Drug Dosing mL/min Estimated GFR (MDRD) (>60) mL/min BUN/Creatinine Ratio (14-18) Glucose (83-115) mg/dL Calcium (8.5-10.1) mg/dL Total Bilirubin (0.2-1.0) mg/dL AST (15-37) U/L ALT (14-59) U/L Alkaline Phosphatase (46-116) U/L Troponin I < 0.017 (0.00-0.056) ng/mL NT-Pro-B Natriuret Pep (0-450) pg/mL Total Protein (6.4-8.2) g/dl Albumin (3.4-5.0) g/dl Globulin gm/dL Albumin/Globulin Ratio (1-2) Meds: Medications Generic Name Dose Route Start Last Admin Trade Name Freq PRN Reason Stop Dose Admin Sodium Chloride 10 ml 03/28/19 19:02 03/28/19 19:18 Saline Flush FLUSH 10 ml ASDIRECTED PRN Administration Keep Vein Open - Re-Assessments/Exams Free Text/Narrative Re-Assessment/Exam: 03/28/19 22:07. Initial troponin was negative, repeat greater than 2 hour troponin also negative. She's been resting comfortably pain-free while here in the emergency department. Did have significant chest wall tenderness on exam. EKG was normal. Other labs all relatively normal. Chest x-ray looks fine. It looks safe to let her go back to the [facility] this [facility]. Discharge instructions as documented Departure - Departure Time of Disposition: 22:08 Disposition: Home, Self-Care 01 Condition: Fair Clinical Impression: Chest wall pain, Atypical chest pain Referrals: Dipesh Vega MD [Primary Care Provider] - Forms: ED Department Discharge Additional Instructions: Her troponin, cardiac enzyme was normal on arrival and also to all or follow-up check was also normal. EKG chest x-ray and labs were all good. She does have definite chest wall tenderness of the left sternal border. That is the likely cause of her discomfort the last few days and today. I do recommend Tylenol 500 mg every 6-8 hours if needed for further chest wall discomfort. Continue other previous care and meds. Have her follow-up with her medical provider if symptoms persist. Return to ED as needed if symptoms worsening in any way. - My Orders Last 24 Hours: My Active Orders 03/28/19 19:02 Chest 1V Frontal [CR] Stat Sodium Chloride 0.9% [Saline Flush] 10 ml FLUSH ASDIRECTED PRN 03/28/19 19:03 EKG 12 Lead [EKG Documentation Completion] [RC] STAT Peripheral IV Care [RC] . DIRECTED Peripheral IV Insertion Adult [OM.PC] Stat - Assessment/Plan Last 24 Hours: My Active Orders 03/28/19 19:02 Chest 1V Frontal [CR] Stat Sodium Chloride 0.9% [Saline Flush] 10 ml FLUSH ASDIRECTED PRN 03/28/19 19:03 EKG 12 Lead [EKG Documentation Completion] [RC] STAT Peripheral IV Care [RC] . DIRECTED Peripheral IV Insertion Adult [OM.PC] Stat
[2019-03-28 20:30] VITALS: BP 144/78
--- NOTE | 2019-03-29 09:35 | CR ---
Chest: Portable view of the chest was obtained. Comparison: Prior chest x-ray of 01/15/19. Right shoulder prosthesis is seen. Severe degenerative change is noted within the left shoulder. Heart is slightly enlarged. Pulmonary vessels appear mildly increased which is stable. Minimal scarring is seen within the left base. Impression: 1. Findings as noted above which are stable from prior chest x-ray. 2. Nothing acute is appreciated. Diagnostic code #3
== END 2019-03-28 23:18 | disposition home or self-care (01) ==
LOC: JD.ED 18:42
DX: R07.89 Other chest pain (principal); I10 Essential (primary) hypertension; E78.00 Pure hypercholesterolemia, unspecified; F32.9 Major depressive disorder, single episode, unspecified; E03.9 Hypothyroidism, unspecified; Z79.899 Other long term (current) drug therapy; Z88.6 Allergy status to analgesic agent; Z88.0 Allergy status to penicillin; Z88.8 Allergy status to other drugs, medicaments and biological substances
CPT/HCPCS: 36415; 71045; 71045-26; 80053; 83880; 84484; 85025; 93005; 93010; 99283; 99285-25

== ENCOUNTER 2019-12-28 16:15 | Emergency (ER) | payer MEDICARE, MEDICAID ==
[2019-12-28] MEDS ORDERED: Acetaminophen 325 MG Tab PO ONE (18:13)
--- NOTE | 2019-12-28 18:16 | EDM.PDOC ---
ED HPI GENERAL MEDICAL PROBLEM - General Chief Complaint: Head Injury Stated Complaint: [facility] Time Seen by Provider: 12/28/19 17:26 Source of Information: Reports: Patient, Other (2 Sisters) History Limitations: Reports: No Limitations (The patient has dementia, but had good recall of today's event) - History of Present Illness INITIAL COMMENTS - FREE TEXT/NARRATIVE: Ms. Huntley is a very pleasant 84-year-old woman with a past medical history significant for hypertension, a possible seizure disorder, and dementia, who states that she fell backwards, striking the back of her head on the ground. The 2 Sisters who accompany the patient tell me that she lost her balance while dancing. The patient ordinarily uses a walker, although was not using a walker while dancing. They state that she does not have a history of falls. There was no loss of consciousness. The patient is not on an anticoagulant. She states that other than the back of her head, she is uninjured, although she complains of a headache. 2 sisters who accompany the patient tell me that the patient's current mental status is her baseline. They also tell me that the patient's right pupil is chronically dilated. Here in the ED, the patient's initial BP is found to be elevated at 182/91, otherwise, she is afebrile, saturating 98% on room air. The patient's PCP is Dr. Dipesh Vega. Posterior Head Pain Score (Numeric/FACES): 6 - Related Data Allergies Allergy/AdvReac Type Severity Reaction Status Date / Time aspirin Allergy Swollen Verified 03/28/19 18:51 Tongue Penicillins Allergy Swollen Verified 03/28/19 18:51 Tongue phenytoin sodium AdvReac Weakness Verified 03/28/19 18:51 [From Dilantin] phenytoin sodium extended AdvReac Weakness Verified 03/28/19 18:51 [From Dilantin] Home Meds: Home Meds atorvaSTATin [Lipitor] 20 mg PO BEDTIME 04/12/14 [History] Acetaminophen [Mapap] 650 mg PO Q12HR 03/28/19 [History] Dupilumab [Dupixent] 300 mg SQ ASDIRECTED 03/28/19 [History] Levothyroxine 25 mcg PO DAILY 03/28/19 [History] Lisinopril 5 mg PO DAILY 03/28/19 [History] Nitroglycerin [Nitrostat] 0.4 mg SL ASDIRECTED PRN 03/28/19 [History] Sertraline [Zoloft] 50 mg PO DAILY 03/28/19 [History] diphenhydrAMINE [Benadryl] 25 mg PO Q8HR PRN 03/28/19 [History] levETIRAcetam [Keppra] 250 mg PO BID 03/28/19 [History] Calcium Carbonate [Tums] 1 tab PO ASDIRECTED 12/28/19 [History] Ceramides 1,3,6-11 [Cerave] 1 applic TOP BID 12/28/19 [History] Famotidine [Pepcid] 20 mg PO BEDTIME 12/28/19 [History] Isosorbide Mononitrate [Imdur] 30 mg PO DAILY 12/28/19 [History] Ketotifen [Ketotifen 0.025% Ophth Soln] 1 drop TOP BID PRN 12/28/19 [History] Menthol [Biofreeze] 1 applic TOP BID PRN 12/28/19 [History] Past Medical History Cardiovascular History: Reports: High Cholesterol, Hypertension Neurological History: Reports: Alzheimers Disease, Seizure (unsure) Endocrine/Metabolic History: Reports: Hypothyroidism Oncologic (Cancer) History: Reports: Bladder (s/p TURBT) - Past Surgical History HEENT Surgical History: Reports: Cataract Surgery (bilateral), Tonsillectomy GI Surgical History: Reports: Appendectomy Female Surgical History: Reports: TURBT Social & Family History - Tobacco Use Smoking Status *Q: Never Smoker - Caffeine Use Caffeine Use: Reports: Coffee, Soda, Tea - Alcohol Use Alcohol Use History: No - Recreational Drug Use Recreational Drug Use: No - Living Situation & Occupation Living situation: Reports: Single, Extended Care Facility ([facility]) 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) ED ROS GENERAL - Review of Systems Review Of Systems: Comprehensive ROS is negative, except as noted in HPI. ED EXAM, HEAD INJURY - Physical Exam Exam: See Below Exam Limited By: No Limitations General Appearance: Alert, WD/WN, No Apparent Distress Head: Normocephalic, Scalp Hematoma (posterior midline), Scalp Tenderness ( posterior midline, but no associated step-off or bony softness) Eyes: Bilateral Eye: EOMI, Normal Inspection, PERRL Ears: Normal External Exam, Normal Canal, Normal TMs, Hearing Loss Nose: Normal Inspection, Normal Mucousa, No Blood Throat/Mouth: Normal Inspection, Normal Lips, Normal Teeth, Normal Gums, Normal Oropharynx, Normal Voice, No Airway Compromise Neck: Non-Tender, Full Range of Motion, Normal Alignment, Normal Inspection Respiratory: No Respiratory Distress, Lungs Clear, Normal Breath Sounds, No Accessory Muscle Use Cardiovascular: Normal Peripheral Pulses, Regular Rate, Rhythm, No Edema, No Gallop, No JVD, No Murmur, No Rub GI/Abdominal Exam: Normal Bowel Sounds, Soft, Non-Tender, No Organomegaly, No Distention, No Abnormal Bruit, No Mass (Female) Exam: Deferred Rectal (Female) Exam: Deferred Back Exam: Full Range of Motion, Normal Inspection, NT Extremities: Normal Inspection, Normal Range of Motion, No Pedal Edema, Normal Capillary Refill 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 As Tested, No Motor/Sensory Deficits, Alert, Oriented x 3 Skin: Normal Color, Warm/Dry Course - Vital Signs Last Recorded V/S: Last Vital Signs Temp 36.8 C 12/28/19 16:17 Pulse 72 12/28/19 17:15 Resp 18 12/28/19 17:15 BP 170/133 H 12/28/19 17:15 Pulse Ox 95 12/28/19 17:15 - Orders/Labs/Meds Meds: Medications Discontinued Medications Generic Name Dose Route Start Last Admin Trade Name Saloq PRN Reason Stop Dose Admin Acetaminophen 650 mg 12/28/19 18:13 12/28/19 18:27 Tylenol PO 12/28/19 18:14 650 mg NOW ONE Administration - Re-Assessments/Exams Free Text/Narrative Re-Assessment/Exam: 12/28/19 18:10 As above, the patient did not lose consciousness when she fell, there is no diminishment of her GCS, there is no suggestion of a depressed skull fracture or basilar skull fracture, there is no posttraumatic seizure, her neurologic exam is normal, with no focal neurologic deficits, and she has not vomited since the injury. She is not on an anticoagulant, and there was no loss of consciousness or amnesia since the event, therefore, in accordance with NICE criterion, a CT scan of the head is not indicated. The patient and her 2 friends all expressed understanding and agreement. With respect to the hematoma on the patient's posterior scalp, there is no laceration that requires repair. I will recommend an ice pack to help with the swelling over the next couple of days, and Tylenol as needed for local discomfort. She may safely be discharged back to the care home. Departure - Departure Time of Disposition: 18:14 Disposition: Home, Self-Care 01 Condition: Good Clinical Impression: Fall at care home, Scalp hematoma - Discharge Information *PRESCRIPTION DRUG MONITORING PROGRAM REVIEWED*: Not Applicable *COPY OF PRESCRIPTION DRUG MONITORING REPORT IN PATIENT CINDY: Not Applicable Instructions: Subdural Hematoma Referrals: Dipesh Vega MD [Primary Care Provider] - Forms: ED Department Discharge Additional Instructions: Ms. Huntley was seen in the emergency room after falling backwards, striking the back of her head. Based on her history and physical examination, a CT scan of her head was not indicated. We recommend that an ice pack be placed on her posterior scalp several times per day, for the next couple of days, to help reduce swelling. She may take [id number] Tylenol, 500 mg up to every 4 hours, as needed for discomfort. If any other problems, please do not hesitate to return Ms. Hutnley to the ER. Sepsis Event Note - Evaluation Sepsis Screening Result: No Definite Risk - Focused Exam Date Exam was Performed: 12/30/19 Time Exam was Performed: 19:16
[2019-12-28 18:49] VITALS: BP 170/133; PULSE 72
== END 2019-12-28 18:35 | disposition home or self-care (01) ==
LOC: SUPCPDRO 16:15 → JD.ED 16:15
DX: S00.03XA Contusion of scalp, initial encounter (principal); G30.9 Alzheimer's disease, unspecified; F02.80 Dementia in other diseases classified elsewhere, unspecified severity, without behavioral disturbance, psychotic disturbance, mood disturbance, and anxiety; E03.9 Hypothyroidism, unspecified; E78.00 Pure hypercholesterolemia, unspecified; I10 Essential (primary) hypertension; Z88.0 Allergy status to penicillin; Z88.8 Allergy status to other drugs, medicaments and biological substances; W22.8XXA Striking against or struck by other objects, initial encounter; Y93.41 Activity, dancing; Y92.129 Unspecified place in nursing home as the place of occurrence of the external cause
CPT/HCPCS: 99283; A9270; 99282

== ENCOUNTER 2020-04-26 15:58 | Emergency (ER) | payer MEDICARE, MEDICAID ==
--- NOTE | 2020-04-26 16:09 | EDM.PDOC ---
ED HPI GENERAL MEDICAL PROBLEM - General Chief Complaint: Chest Pain Stated Complaint: [facility] Time Seen by Provider: 04/26/20 16:09 - History of Present Illness INITIAL COMMENTS - FREE TEXT/NARRATIVE: 85-year-old female presents the emergency room with chest pain. She is brought in by [facility]. At the [facility] care facility in [place] patient received nitro x3 they reported she had no improvement with the patient says she had a little bit of improvement. The patient is allergic to aspirin and therefore did not receive aspirin and we will not give it here. The patient rates her pain at approxi mately a 7 but she is unsure of this because she does not like numbers. She is not having any associated breathing difficulties. The pain seems to radiate into her left arm and shoulder but she has chronic left shoulder pain. She has no pain into the right shoulder or arm no pain into the neck. No nausea or vomiting or associated abdominal pain. The patient states the onset of the chest pain was yesterday, probably midday. The patient cannot recall what her aspirin allergy is, it was a long time ago. Patient is a resident at the halfway facility in [place] she says she is ambulatory. - Related Data Allergies Allergy/AdvReac Type Severity Reaction Status Date / Time aspirin Allergy Severe Swollen Verified 04/26/20 16:10 Tongue Penicillins Allergy Severe Swollen Verified 04/26/20 16:10 Tongue phenytoin sodium AdvReac Severe Weakness Verified 04/26/20 16:10 [From Dilantin] phenytoin sodium extended AdvReac Weakness Verified 04/26/20 16:10 [From Dilantin] Home Meds: Home Meds atorvaSTATin [Lipitor] 20 mg PO BEDTIME 04/12/14 [History] Acetaminophen [Mapap] 650 mg PO Q12HR 03/28/19 [History] Dupilumab [Dupixent] 300 mg SQ ASDIRECTED 03/28/19 [History] Levothyroxine 25 mcg PO DAILY 03/28/19 [History] Lisinopril 5 mg PO DAILY 03/28/19 [History] Nitroglycerin [Nitrostat] 0.4 mg SL ASDIRECTED PRN 03/28/19 [History] Sertraline [Zoloft] 50 mg PO DAILY 03/28/19 [History] levETIRAcetam [Keppra] 250 mg PO BID 03/28/19 [History] Calcium Carbonate [Tums] 1 tab PO ASDIRECTED 12/28/19 [History] Ceramides 1,3,6-11 [Cerave] 1 applic TOP BID 12/28/19 [History] Famotidine [Pepcid] 20 mg PO BEDTIME 12/28/19 [History] Isosorbide Mononitrate [Imdur] 30 mg PO DAILY 12/28/19 [History] Acetaminophen 500 mg PO Q4HR PRN 04/26/20 [History] Donepezil HCl [Aricept] 5 mg PO BEDTIME 04/26/20 [History] Donepezil HCl [Aricept] 10 mg PO DAILY 04/26/20 [History] Ketotifen Fumarate [Alaway] 1 drop OP BID PRN 04/26/20 [History] Menthol [Biofreeze] 1 applic TP BID PRN 04/26/20 [History] cephALEXin [Keflex] 250 mg PO Q6H #24 cap 04/26/20 [Rx] diphenhydrAMINE HCL [Benadryl] 25 mg PO Q8HR PRN 04/26/20 [History] Past Medical History Cardiovascular History: Reports: High Cholesterol, Hypertension Neurological History: Reports: Alzheimers Disease, Seizure (unsure) Psychiatric History: Reports: Dementia, Depression Endocrine/Metabolic History: Reports: Hypothyroidism Oncologic (Cancer) History: Reports: Bladder (s/p TURBT) Dermatologic History: Reports: Other (See Below) Other Dermatologic History: very dry and flakey skin - Past Surgical History HEENT Surgical History: Reports: Cataract Surgery (bilateral), Tonsillectomy GI Surgical History: Reports: Appendectomy Female Surgical History: Reports: TURBT Social & Family History - Caffeine Use Caffeine Use: Reports: Coffee, Soda, Tea - Living Situation & Occupation Living situation: Reports: Single, Extended Care Facility ([facility]) 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) ED ROS GENERAL - Review of Systems Review Of Systems: See Below Constitutional: Reports: No Symptoms HEENT: Reports: No Symptoms Respiratory: Reports: No Symptoms Cardiovascular: Reports: Chest Pain. Denies: Edema GI/Abdominal: Reports: No Symptoms : Reports: No Symptoms Musculoskeletal: Reports: No Symptoms Skin: Reports: No Symptoms Neurological: Reports: No Symptoms Psychiatric: Reports: No Symptoms ED EXAM, GENERAL - Physical Exam Exam: See Below Exam Limited By: No Limitations General Appearance: Alert, No Apparent Distress Head: Atraumatic, Normocephalic Neck: Normal Inspection, Supple, Non-Tender, Full Range of Motion. No: Lympha denopathy (L), Lymphadenopathy (R) Respiratory/Chest: No Respiratory Distress, Lungs Clear, Normal Breath Sounds Cardiovascular: Regular Rate, Rhythm, No Edema, No Murmur GI/Abdominal: Normal Bowel Sounds, Soft, Non-Tender Back Exam: Normal Inspection, Full Range of Motion. No: CVA Tenderness (L), CVA Tenderness (R) Extremities: Normal Inspection, Non-Tender, Other (Trace pitting edema) Neurological: Alert, Normal Cognition Skin Exam: Warm, Dry, Intact EKG INTERPRETATION EKG Date: 04/26/20 Rhythm: NSR Lipan: Other (Borderline leftward axis) P-Wave: Present QRS: Normal ST-T: Normal QT: Normal Comparison: No Change (No change from 03/28/2019) EKG Interpretation Comments: Borderline EKG Course - Vital Signs Last Recorded V/S: Last Vital Signs Temp 36.2 C 04/26/20 16:06 Pulse 62 04/26/20 16:06 Resp 14 04/26/20 16:06 BP 132/114 H 04/26/20 16:36 Pulse Ox 91 L 04/26/20 16:06 - Orders/Labs/Meds Orders: Active Orders 24 hr Category Date Time Status EKG 12 Lead [EKG Documentation Completion] [RC] ROUTINE Care 04/26/20 16:14 Active Insert Urinary Catheter [OM.PC] Stat Care 04/26/20 16:40 Ordered Urinary Catheter Assessment [RC] ASDIRECTED Care 04/26/20 16:40 Active Chest 1V Frontal [CR] Stat Exams 04/26/20 16:18 Taken CULTURE URINE [RM] Stat Lab 04/26/20 16:35 Received Lactated Ringers [Ringers, Lactated] 1,000 ml Med 04/26/20 16:30 Active IV ASDIRECTED Nitroglycerin [Nitrostat] Med 04/26/20 16:17 Active 0.4 mg SL Q5M PRN Medication Orders Lactated Ringer's (Ringers, Lactated) 1,000 mls @ 25 mls/hr IV ASDIRECTED ROSANGELA Last Admin: 04/26/20 16:39 Dose: 25 mls/hr Documented by: CHARLES Nitroglycerin (Nitrostat) 0.4 mg SL Q5M PRN PRN Reason: Chest Pain Last Admin: 04/26/20 16:36 Dose: 0.4 mg Documented by: Admin: 04/26/20 16:22 Dose: 0.4 mg Documented by: CHARLES Labs: Laboratory Tests 04/26/20 04/26/20 04/26/20 Range/Units 16:25 16:25 16:35 PT 11.0 (9.7-12.0) SECONDS INR 1.01 APTT 26 (22-31) SECONDS Sodium 144 (136-145) mEq/L Potassium 3.7 (3.5-5.1) mEq/L Chloride 109 H (98-107) mEq/L Carbon Dioxide 26 (21-32) mEq/L Anion Gap 12.7 (5-15) BUN 19 H (7-18) mg/dL Creatinine 0.9 (0.55-1.02) mg/dL Est Cr Clr Drug Dosing TNP Estimated GFR (MDRD) 59 (>60) mL/min BUN/Creatinine Ratio 21.1 H (14-18) Glucose 101 (83-115) mg/dL Calcium 8.6 (8.5-10.1) mg/dL Total Bilirubin 0.4 (0.2-1.0) mg/dL AST 15 (15-37) U/L ALT 19 (14-59) U/L Alkaline Phosphatase 75 (46-116) U/L Troponin I < 0.017 (0.00-0.056) ng/mL Total Protein 6.3 L (6.4-8.2) g/dl Albumin 3.3 L (3.4-5.0) g/dl Globulin 3.0 gm/dL Albumin/Globulin Ratio 1.1 (1-2) Urine Color Yellow (Yellow) Urine Appearance Clear (Clear) Urine pH 6.0 (5.0-8.0) Ur Specific [place] > or = 1.030 (1.005-1.030) Urine Protein Trace H (Negative) Urine Glucose (UA) Negative (Negative) Urine Ketones 1+ H (Negative) Urine Occult Blood Negative (Negative) Urine Nitrite Positive H (Negative) Urine Bilirubin Negative (Negative) Urine Urobilinogen 0.2 (0.2-1.0) Ur Leukocyte Esterase 1+ H (Negative) Urine RBC 0-5 (0-5) /hpf Urine WBC 20-30 H (0-5) /hpf Ur Squamous Epith Cells 10-20 H (0-5) /hpf Urine Bacteria Moderate H (FEW) /hpf Urine Mucus Many H (FEW) /hpf 04/26/20 Range/Units 18:20 PT (9.7-12.0) SECONDS INR APTT (22-31) SECONDS Sodium (136-145) mEq/L Potassium (3.5-5.1) mEq/L Chloride (98-107) mEq/L Carbon Dioxide (21-32) mEq/L Anion Gap (5-15) BUN (7-18) mg/dL Creatinine (0.55-1.02) mg/dL Est Cr Clr Drug Dosing Estimated GFR (MDRD) (>60) mL/min BUN/Creatinine Ratio (14-18) Glucose (83-115) mg/dL Calcium (8.5-10.1) mg/dL Total Bilirubin (0.2-1.0) mg/dL AST (15-37) U/L ALT (14-59) U/L Alkaline Phosphatase (46-116) U/L Troponin I < 0.017 (0.00-0.056) ng/mL Total Protein (6.4-8.2) g/dl Albumin (3.4-5.0) g/dl Globulin gm/dL Albumin/Globulin Ratio (1-2) Urine Color (Yellow) Urine Appearance (Clear) Urine pH (5.0-8.0) Ur Specific [place] (1.005-1.030) Urine Protein (Negative) Urine Glucose (UA) (Negative) Urine Ketones (Negative) Urine Occult Blood (Negative) Urine Nitrite (Negative) Urine Bilirubin (Negative) Urine Urobilinogen (0.2-1.0) Ur Leukocyte Esterase (Negative) Urine RBC (0-5) /hpf Urine WBC (0-5) /hpf Ur Squamous Epith Cells (0-5) /hpf Urine Bacteria (FEW) /hpf Urine Mucus (FEW) /hpf Meds: Medications Generic Name Dose Route Start Last Admin Trade Name Freq PRN Reason Stop Dose Admin Lactated Ringer's 1,000 mls @ 25 mls/hr 04/26/20 16:30 04/26/20 16:39 Ringers, Lactated IV 25 mls/hr ASDIRECTED ROSANGELA Administration Nitroglycerin 0.4 mg 04/26/20 16:17 04/26/20 16:36 Nitrostat SL 0.4 mg Q5M PRN Administration Chest Pain Discontinued Medications Generic Name Dose Route Start Last Admin Trade Name Freq PRN Reason Stop Dose Admin Acetaminophen 650 mg 04/26/20 17:33 04/26/20 18:03 Tylenol PO 04/26/20 17:34 650 mg NOW ONE Administration Cephalexin 500 mg 04/26/20 18:24 04/26/20 18:35 Keflex PO 04/26/20 18:25 500 mg ONETIME ONE Administration - Re-Assessments/Exams Free Text/Narrative Re-Assessment/Exam: 04/26/20 18:32 Initial troponin negative chest x-ray is negative for any acute cardiopulmonary changes. I did discuss patient's situation with Tanya Jones [phone]. Patient's legal guardian and power of senior attorney. She confirms the patient is a DNR if the patient had a severe heart problem does not believe the patient would want to go to [place] at this point and certainly would not want to have any procedures done on her heart including catheterization. Her best recommendation is do what we can do to keep her comfortable and agrees with [facility] this evening. 04/26/20 19:09 Second troponin negative will proceed with discharge Departure - Departure Time of Disposition: 18:55 Disposition: DC/Tfer to SNF 03 Reason for Transfer *Q: Other Clinical Impression: Chest pain, Urinary tract infection Prescriptions: cephALEXin [Keflex] 250 mg PO Q6H #24 cap Referrals: PCP,None [Primary Care Provider] - Forms: ED Department Discharge Additional Instructions: Return to the emergency room with any questions problems or worsening symptoms. Take the antibiotics as directed. Sepsis Event Note (ED) - Focused Exam Vital Signs: Vital Signs Temp Pulse Resp BP BP Pulse Ox 04/26/20 16:36 132/114 H 04/26/20 16:22 162/76 H 04/26/20 16:06 36.2 C 62 14 151/77 H 91 L - My Orders Last 24 Hours: My Active Orders 04/26/20 16:14 EKG 12 Lead [EKG Documentation Completion] [RC] ROUTINE 04/26/20 16:17 Nitroglycerin [Nitrostat] 0.4 mg SL Q5M PRN 04/26/20 16:18 Chest 1V Frontal [CR] Stat 04/26/20 16:30 Lactated Ringers [Ringers, Lactated] 1,000 ml IV ASDIRECTED 04/26/20 16:35 CULTURE URINE [RM] Stat 04/26/20 16:40 Insert Urinary Catheter [OM.PC] Stat Urinary Catheter Assessment [RC] ASDIRECTED - Assessment/Plan Last 24 Hours: My Active Orders 04/26/20 16:14 EKG 12 Lead [EKG Documentation Completion] [RC] ROUTINE 04/26/20 16:17 Nitroglycerin [Nitrostat] 0.4 mg SL Q5M PRN 04/26/20 16:18 Chest 1V Frontal [CR] Stat 04/26/20 16:30 Lactated Ringers [Ringers, Lactated] 1,000 ml IV ASDIRECTED 04/26/20 16:35 CULTURE URINE [RM] Stat 04/26/20 16:40 Insert Urinary Catheter [OM.PC] Stat Urinary Catheter Assessment [RC] ASDIRECTED
[2020-04-26 16:10] VITALS: PULSE 62
[2020-04-26] MEDS: Nitroglycerin 0.4 MG Tab.SL SL PRN ×2 (16:22→16:36)
[2020-04-26] MEDS ORDERED: Lactated Ringers 1,000 ML IV SCH (16:30)
[2020-04-26 16:39] VITALS: BP 132/114
[2020-04-26] MEDS ORDERED: Acetaminophen 325 MG Tab PO ONE (17:33)
[2020-04-26] MEDS ORDERED: Cephalexin 500 MG Cap PO ONE (18:24)
--- NOTE | 2020-04-27 09:38 | CR ---
Chest: Frontal view of the chest was obtained. Comparison: Prior chest x-ray of 03/28/90. Heart size is normal. Tortuous thoracic aorta is seen. Scarring is noted within the lateral left costophrenic angle. Right shoulder prosthesis is noted. Severe degenerative change is noted within the left shoulder. Impression: 1. Findings as noted above. 2. Nothing acute is appreciated. Diagnostic code #2 This report was dictated in MDT
== END 2020-04-26 19:30 ==
LOC: JD.ED 15:58
DX: R07.9 Chest pain, unspecified (principal); N39.0 Urinary tract infection, site not specified; I10 Essential (primary) hypertension; E78.00 Pure hypercholesterolemia, unspecified; F32.9 Major depressive disorder, single episode, unspecified; F03.90 Unspecified dementia, unspecified severity, without behavioral disturbance, psychotic disturbance, mood disturbance, and anxiety; E03.9 Hypothyroidism, unspecified; Z90.49 Acquired absence of other specified parts of digestive tract; Z88.8 Allergy status to other drugs, medicaments and biological substances; Z88.0 Allergy status to penicillin; Z79.899 Other long term (current) drug therapy
CPT/HCPCS: 36415; 71045; 80053; 81001; 84484; 85610; 85730; 87086; 87088; 87186; 93005; 99285; A9270; J7120; 51701; 93010; 99284

== ENCOUNTER 2020-04-30 18:25 | Emergency (ER) | payer MEDICARE, MEDICAID ==
[2020-04-30] MEDS ORDERED: Sodium Chloride 0.9% 10 ML Syringe FLUSH PRN (18:28)
[2020-04-30] MEDS ORDERED: Sodium Chloride 0.9% 1,000 ML IV SCH (18:30)
[2020-04-30 18:39] VITALS: BP 211/82; PULSE 53
--- NOTE | 2020-04-30 18:55 | CT ---
Head CT Technique: Multiple axial sections through the brain were obtained. Intravenous contrast was not utilized. Comparison: Prior head CT study of 01/15/19 is available. Findings: Ventricles along with basal cisterns are mildly to moderately prominent. Diminished density is noted within the periventricular and subcortical white matter which appears fairly stable from previous exam most likely representing small vessel ischemic demyelination change. 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 No evidence of intracranial hemorrhage. No other abnormal parenchymal densities are seen. No midline shift or mass-effect is seen. Bone window settings were reviewed. Visualized mastoid sinus and visualized paranasal sinuses show nothing acute. No acute calvarial finding is seen. Impression: 1. Senescent change as described above. 2. No acute intracranial abnormality is appreciated. No change from previous head CT study is seen. Diagnostic code #2 This report was dictated in MDT
--- NOTE | 2020-04-30 19:16 | CR ---
Chest: Portable view of the chest was obtained. Comparison: Prior chest x-ray of 04/26/20. Heart size is normal. Slight scarring is noted within the left lateral costophrenic angle. Lungs show no acute parenchymal change. Severe degenerative change within the left shoulder is noted. Prosthetic right shoulder is seen. Scoliosis and degenerative change is noted within the spine. Impression: 1. Stable findings as noted above. 2. Nothing acute is appreciated on portable chest x-ray. Diagnostic code #2 This report was dictated in MDT
[2020-04-30] MEDS ORDERED: Acetaminophen 325 MG Tab PO ONE (20:24)
--- NOTE | 2020-04-30 20:29 | EDM.PDOC ---
ED HPI GENERAL MEDICAL PROBLEM - General Chief Complaint: Neuro Symptoms/Deficits Stated Complaint: [facility] Time Seen by Provider: 04/30/20 18:27 Source of Information: Reports: EMS, Detention Records History Limitations: Reports: Altered Mental Status - History of Present Illness INITIAL COMMENTS - FREE TEXT/NARRATIVE: The patient presents by [facility] for not feeling well and not talking. A stroke alert was called. Her last time known well was sometime this morning. She was here a few days ago and was diagnosed with a UTI. She did not feel good today and would not talk this morning into the night. She looked pale. When she arrived here, she would not talk. She would follow commands and she had no weakness. Onset: Gradual Duration: Hour(s): Severity: Moderate Improves with: Reports: None Worsens with: Reports: None Associated Symptoms: Reports: Chest Pain. Denies: Cough, Fever/Chills, Headaches, Nausea/Vomiting, Shortness of Breath - Related Data Allergies Allergy/AdvReac Type Severity Reaction Status Date / Time aspirin Allergy Severe Swollen Verified 04/26/20 16:10 Tongue Penicillins Allergy Severe Swollen Verified 04/26/20 16:10 Tongue phenytoin sodium AdvReac Severe Weakness Verified 04/26/20 16:10 [From Dilantin] phenytoin sodium extended AdvReac Weakness Verified 04/26/20 16:10 [From Dilantin] Home Meds: Home Meds atorvaSTATin [Lipitor] 20 mg PO BEDTIME 04/12/14 [History] Acetaminophen [Mapap] 650 mg PO Q12HR 03/28/19 [History] Dupilumab [Dupixent] 300 mg SQ ASDIRECTED 03/28/19 [History] Levothyroxine 25 mcg PO DAILY 03/28/19 [History] Lisinopril 5 mg PO DAILY 03/28/19 [History] Nitroglycerin [Nitrostat] 0.4 mg SL ASDIRECTED PRN 03/28/19 [History] Sertraline [Zoloft] 50 mg PO DAILY 03/28/19 [History] levETIRAcetam [Keppra] 250 mg PO BID 03/28/19 [History] Calcium Carbonate [Tums] 1 tab PO ASDIRECTED 12/28/19 [History] Ceramides 1,3,6-11 [Cerave] 1 applic TOP BID 12/28/19 [History] Famotidine [Pepcid] 20 mg PO BEDTIME 12/28/19 [History] Isosorbide Mononitrate [Imdur] 30 mg PO DAILY 12/28/19 [History] Acetaminophen 500 mg PO Q4HR PRN 04/26/20 [History] Donepezil HCl [Aricept] 5 mg PO BEDTIME 04/26/20 [History] Donepezil HCl [Aricept] 10 mg PO DAILY 04/26/20 [History] Ketotifen Fumarate [Alaway] 1 drop OP BID PRN 04/26/20 [History] Menthol [Biofreeze] 1 applic TP BID PRN 04/26/20 [History] cephALEXin [Keflex] 250 mg PO Q6H #24 cap 04/26/20 [Rx] diphenhydrAMINE HCL [Benadryl] 25 mg PO Q8HR PRN 04/26/20 [History] Past Medical History HEENT History: Reports: Impaired Vision Cardiovascular History: Reports: High Cholesterol, Hypertension Respiratory History: Reports: None Gastrointestinal History: Reports: GERD 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 Musculoskeletal History: Reports: Other (See Below) Other Musculoskeletal History: Bone Density disorder Neurological History: Reports: Alzheimers Disease, Seizure Psychiatric History: Reports: Dementia, Depression Endocrine/Metabolic History: Reports: Hypothyroidism Hematologic History: Reports: None Immunologic History: Reports: None Oncologic (Cancer) History: Reports: Bladder Dermatologic History: Reports: Other (See Below) Other Dermatologic History: very dry and flakey skin - Infectious Disease History Infectious Disease History: Reports: None - Past Surgical History HEENT Surgical History: Reports: Cataract Surgery, Tonsillectomy GI Surgical History: Reports: Appendectomy Female Surgical History: Reports: TURBT Social & Family History - Tobacco Use Smoking Status *Q: Never Smoker Second Hand Smoke Exposure: No - Caffeine Use Caffeine Use: Reports: Coffee, Soda, Tea - Living Situation & Occupation Living situation: Reports: Single, Extended Care Facility ([facility]) 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) ED ROS GENERAL - Review of Systems Review Of Systems: Unable To Obtain Reason Not Obtained: Patient will or cannot talk ED EXAM, NEURO - Physical Exam Exam: See Below Exam Limited By: Altered Mental Status General Appearance: Alert, Other (Patient will not talk) Ears: Normal External Exam Nose: Normal Inspection Head Exam: Atraumatic, Normocephalic Neck: Normal Inspection Respiratory/Chest: No Respiratory Distress, Lungs Clear, Normal Breath Sounds Cardiovascular: Regular Rate, Rhythm, No Edema, No Murmur GI/Abdominal: Soft, Non-Tender, No Organomegaly, No Mass Neurological: Alert, No Motor/Sensory Deficits, Other (The patient will not talk. She can move her arms and legs.) EKG INTERPRETATION EKG Date: 04/30/20 Time: 18:29 Rhythm: Other (sinus bradycardia) Rate (Beats/Min): 51 [place]: Normal P-Wave: Present QRS: Normal ST-T: Normal QT: Normal EKG Interpretation Comments: PACs Course - Vital Signs Last Recorded V/S: Last Vital Signs Temp 97.2 F 04/30/20 18:31 Pulse 53 L 04/30/20 18:31 Resp 14 04/30/20 18:31 BP 211/82 H 04/30/20 18:31 Pulse Ox 94 L 04/30/20 18:31 - Orders/Labs/Meds Orders: Active Orders 24 hr Category Date Time Status Cardiac Monitoring [RC] . DIRECTED Care 04/30/20 18:28 Active EKG Documentation Completion [RC] STAT Care 04/30/20 18:29 Active Peripheral IV Care [RC] . DIRECTED Care 04/30/20 18:29 Active Acetaminophen [Tylenol] Med 04/30/20 20:24 Once 975 mg PO NOW ONE Sodium Chloride 0.9% [Normal Saline] 1,000 ml Med 04/30/20 18:30 Active IV ASDIRECTED Sodium Chloride 0.9% [Saline Flush] Med 04/30/20 18:28 Active 10 ml FLUSH ASDIRECTED PRN Peripheral IV Insertion Adult [OM.PC] Stat Oth 04/30/20 18:28 Ordered Medication Orders Sodium Chloride (Normal Saline) 1,000 mls @ 125 mls/hr IV ASDIRECTED ROSANGELA Last Admin: 04/30/20 19:44 Dose: 125 mls/hr Documented by: LAURY Sodium Chloride (Saline Flush) 10 ml FLUSH ASDIRECTED PRN PRN Reason: Keep Vein Open Last Admin: 04/30/20 19:44 Dose: 10 ml Documented by: LAURY Labs: Laboratory Tests 04/30/20 04/30/20 04/30/20 Range/Units 18:30 18:30 18:32 WBC 7.99 (3.98-10.04) K/mm3 RBC 4.18 (3.98-5.22) M/mm3 Hgb 12.6 (11.2-15.7) gm/dl Hct 38.3 (34.1-44.9) % MCV 91.6 (79.4-94.8) fl MCH 30.1 (25.6-32.2) pg MCHC 32.9 (32.2-35.5) g/dl RDW Std Deviation 42.9 (36.4-46.3) fL Plt Count 239 (182-369) K/mm3 MPV 9.1 L (9.4-12.3) fl Neut % (Auto) 60.6 (34.0-71.1) % Lymph % (Auto) 24.4 (19.3-51.7) % [place] % (Auto) 9.3 (4.7-12.5) % Eos % (Auto) 5.1 (0.7-5.8) Baso % (Auto) 0.5 (0.1-1.2) % Neut # (Auto) 4.84 (1.56-6.13) K/mm3 Lymph # (Auto) 1.95 (1.18-3.74) K/mm3 [place] # (Auto) 0.74 H (0.24-0.36) K/mm3 Eos # (Auto) 0.41 H (0.04-0.36) K/mm3 Baso # (Auto) 0.04 (0.01-0.08) K/mm3 Sodium 141 (136-145) mEq/L Potassium 3.6 (3.5-5.1) mEq/L Chloride 105 (98-107) mEq/L Carbon Dioxide 27 (21-32) mEq/L Anion Gap 12.6 (5-15) BUN 10 (7-18) mg/dL Creatinine 0.8 (0.55-1.02) mg/dL Est Cr Clr Drug Dosing TNP Estimated GFR (MDRD) > 60 (>60) mL/min BUN/Creatinine Ratio 12.5 L (14-18) Glucose 93 (83-115) mg/dL POC Glucose 94 (83-110) mg/dL Calcium 8.7 (8.5-10.1) mg/dL Magnesium 1.8 (1.8-2.4) mg/dl Total Bilirubin 0.4 (0.2-1.0) mg/dL AST 17 (15-37) U/L ALT 21 (14-59) U/L Alkaline Phosphatase 78 (46-116) U/L Troponin I < 0.017 (0.00-0.056) ng/mL Total Protein 6.6 (6.4-8.2) g/dl Albumin 3.4 (3.4-5.0) g/dl Globulin 3.2 gm/dL Albumin/Globulin Ratio 1.1 (1-2) Urine Color (Yellow) Urine Appearance (Clear) Urine pH (5.0-8.0) Ur Specific [place] (1.005-1.030) Urine Protein (Negative) Urine Glucose (UA) (Negative) Urine Ketones (Negative) Urine Occult Blood (Negative) Urine Nitrite (Negative) Urine Bilirubin (Negative) Urine Urobilinogen (0.2-1.0) Ur Leukocyte Esterase (Negative) Urine RBC (0-5) /hpf Urine WBC (0-5) /hpf Ur Squamous Epith Cells (0-5) /hpf Urine Bacteria (FEW) /hpf Urine Mucus (FEW) /hpf 04/30/20 Range/Units 19:40 WBC (3.98-10.04) K/mm3 RBC (3.98-5.22) M/mm3 Hgb (11.2-15.7) gm/dl Hct (34.1-44.9) % MCV (79.4-94.8) fl MCH (25.6-32.2) pg MCHC (32.2-35.5) g/dl RDW Std Deviation (36.4-46.3) fL Plt Count (182-369) K/mm3 MPV (9.4-12.3) fl Neut % (Auto) (34.0-71.1) % Lymph % (Auto) (19.3-51.7) % [place] % (Auto) (4.7-12.5) % Eos % (Auto) (0.7-5.8) Baso % (Auto) (0.1-1.2) % Neut # (Auto) (1.56-6.13) K/mm3 Lymph # (Auto) (1.18-3.74) K/mm3 [place] # (Auto) (0.24-0.36) K/mm3 Eos # (Auto) (0.04-0.36) K/mm3 Baso # (Auto) (0.01-0.08) K/mm3 Sodium (136-145) mEq/L Potassium (3.5-5.1) mEq/L Chloride (98-107) mEq/L Carbon Dioxide (21-32) mEq/L Anion Gap (5-15) BUN (7-18) mg/dL Creatinine (0.55-1.02) mg/dL Est Cr Clr Drug Dosing Estimated GFR (MDRD) (>60) mL/min BUN/Creatinine Ratio (14-18) Glucose (83-115) mg/dL POC Glucose (83-110) mg/dL Calcium (8.5-10.1) mg/dL Magnesium (1.8-2.4) mg/dl Total Bilirubin (0.2-1.0) mg/dL AST (15-37) U/L ALT (14-59) U/L Alkaline Phosphatase (46-116) U/L Troponin I (0.00-0.056) ng/mL Total Protein (6.4-8.2) g/dl Albumin (3.4-5.0) g/dl Globulin gm/dL Albumin/Globulin Ratio (1-2) Urine Color Light yellow (Yellow) Urine Appearance Clear (Clear) Urine pH 7.0 (5.0-8.0) Ur Specific [place] 1.020 (1.005-1.030) Urine Protein Negative (Negative) Urine Glucose (UA) Negative (Negative) Urine Ketones Negative (Negative) Urine Occult Blood Trace-intact H (Negative) Urine Nitrite Negative (Negative) Urine Bilirubin Negative (Negative) Urine Urobilinogen 0.2 (0.2-1.0) Ur Leukocyte Esterase Negative (Negative) Urine RBC 0-5 (0-5) /hpf Urine WBC Not seen (0-5) /hpf Ur Squamous Epith Cells 5-10 H (0-5) /hpf Urine Bacteria Not seen (FEW) /hpf Urine Mucus Not seen (FEW) /hpf Meds: Medications Generic Name Dose Route Start Last Admin Trade Name Freq PRN Reason Stop Dose Admin Sodium Chloride 1,000 mls @ 125 mls/hr 04/30/20 18:30 04/30/20 19:44 Normal Saline IV 125 mls/hr ASDIRECTED ROSANGELA Administration Sodium Chloride 10 ml 04/30/20 18:28 04/30/20 19:44 Saline Flush FLUSH 10 ml ASDIRECTED PRN Administration Keep Vein Open - Re-Assessments/Exams Free Text/Narrative Re-Assessment/Exam: 04/30/20 20:29 I ordered an IV saline lock, labs, EKG, CT of her head and labs with a UA. Her EKG shows a NSR with no acute changes. Her CT shows senescent change. No acute intracranial abnormality is appreciated. No change from previous head CT study is seen. Her CBC and CMP look good. Her troponin is negative. Her UA shows no UTI. She started talking to my nurse and also she talked to me. I asked her why she was not talking earlier and she said she did not want to. She says she has some left sided chest pain. She was point tender in the left chest. I gave her some tenderness. She is doing good. I will discharge her home. Departure - Departure Time of Disposition: 20:35 Disposition: Home, Self-Care 01 Condition: Good Clinical Impression: Atypical chest pain - Discharge Information *PRESCRIPTION DRUG MONITORING PROGRAM REVIEWED*: Not Applicable *COPY OF PRESCRIPTION DRUG MONITORING REPORT IN PATIENT CINDY: Not Applicable Referrals: PCP,None [Primary Care Provider] - Additional Instructions: Take your medication as prescribed. Please return if you are worse. Sepsis Event Note (ED) - Evaluation Sepsis Screening Result: No Definite Risk - Focused Exam Vital Signs: Vital Signs Temp Pulse Resp BP Pulse Ox 04/30/20 18:31 97.2 F 53 L 14 211/82 H 94 L - My Orders Last 24 Hours: My Active Orders 04/30/20 18:28 Cardiac Monitoring [RC] . DIRECTED Sodium Chloride 0.9% [Saline Flush] 10 ml FLUSH ASDIRECTED PRN Peripheral IV Insertion Adult [OM.PC] Stat 04/30/20 18:29 EKG Documentation Completion [RC] STAT Peripheral IV Care [RC] . DIRECTED 04/30/20 18:30 Sodium Chloride 0.9% [Normal Saline] 1,000 ml IV ASDIRECTED 04/30/20 20:24 Acetaminophen [Tylenol] 975 mg PO NOW ONE - Assessment/Plan Last 24 Hours: My Active Orders 04/30/20 18:28 Cardiac Monitoring [RC] . DIRECTED Sodium Chloride 0.9% [Saline Flush] 10 ml FLUSH ASDIRECTED PRN Peripheral IV Insertion Adult [OM.PC] Stat 04/30/20 18:29 EKG Documentation Completion [RC] STAT Peripheral IV Care [RC] . DIRECTED 04/30/20 18:30 Sodium Chloride 0.9% [Normal Saline] 1,000 ml IV ASDIRECTED 04/30/20 20:24 Acetaminophen [Tylenol] 975 mg PO NOW ONE
== END 2020-04-30 21:31 | disposition home or self-care (01) ==
LOC: JD.ED 18:25
DX: R07.89 Other chest pain (principal); E78.00 Pure hypercholesterolemia, unspecified; I10 Essential (primary) hypertension; K21.9 Gastro-esophageal reflux disease without esophagitis; G30.9 Alzheimer's disease, unspecified; F02.80 Dementia in other diseases classified elsewhere, unspecified severity, without behavioral disturbance, psychotic disturbance, mood disturbance, and anxiety; F32.9 Major depressive disorder, single episode, unspecified; E03.9 Hypothyroidism, unspecified; Z79.899 Other long term (current) drug therapy; Z88.6 Allergy status to analgesic agent; Z88.0 Allergy status to penicillin; Z88.8 Allergy status to other drugs, medicaments and biological substances
CPT/HCPCS: 36415; 70450; 71045; 80053; 81001; 82962; 83735; 84484; 85025; 93005; 96360; 96361; 99285; A9270; J7030; 93010; 99283

== ENCOUNTER 2020-11-27 18:20 | Emergency (ER) | payer MEDICARE, MEDICAID ==
[2020-11-27 18:40] VITALS: BP 170/75; PULSE 57
--- NOTE | 2020-11-27 18:50 | EDM.PDOC ---
ED HPI GENERAL MEDICAL PROBLEM - General Chief Complaint: Lower Extremity Injury/Pain Stated Complaint: [facility] Time Seen by Provider: 11/27/20 18:28 Source of Information: Reports: Patient History Limitations: Reports: No Limitations - History of Present Illness INITIAL COMMENTS - FREE TEXT/NARRATIVE: Patient is an 85-year-old female presenting to the emergency department from [facility] after having an unwitnessed fall. Nursing staff reports that she has been complaining of left leg pain since the time of the fall. From my understanding, they have not attempted to have her ambulate since the fall. She complains of pain to her left lower leg, but with palpation does complain of pain to her left hip, left knee, left shoulder, left upper arm, and left chest wall. She denies hitting her head or having a headache, however, patient has a history of dementia and is quite a poor historian. She is not on blood thinners. Left Leg Pain Score (Numeric/FACES): 5 - Related Data Allergies Allergy/AdvReac Type Severity Reaction Status Date / Time aspirin Allergy Severe Swollen Verified 11/27/20 18:40 Tongue Penicillins Allergy Severe Swollen Verified 11/27/20 18:40 Tongue phenytoin sodium AdvReac Severe Weakness Verified 11/27/20 18:40 [From Dilantin] phenytoin sodium extended AdvReac Severe Weakness Verified 11/27/20 18:40 [From Dilantin] Home Meds: Home Meds atorvaSTATin [Lipitor] 20 mg PO BEDTIME 04/12/14 [History] Acetaminophen [Mapap] 650 mg PO Q12HR 03/28/19 [History] Dupilumab [Dupixent] 300 mg SQ ASDIRECTED 03/28/19 [History] Levothyroxine 25 mcg PO DAILY 03/28/19 [History] Lisinopril 5 mg PO DAILY 03/28/19 [History] Nitroglycerin [Nitrostat] 0.4 mg SL ASDIRECTED PRN 03/28/19 [History] Sertraline [Zoloft] 50 mg PO DAILY 03/28/19 [History] levETIRAcetam [Keppra] 250 mg PO BID 03/28/19 [History] Calcium Carbonate [Tums] 1 tab PO ASDIRECTED 12/28/19 [History] Ceramides 1,3,6-II [Cerave] 1 applic TOP BID 12/28/19 [History] Famotidine [Pepcid] 20 mg PO BEDTIME 12/28/19 [History] Isosorbide Mononitrate [Imdur] 30 mg PO DAILY 12/28/19 [History] Acetaminophen 500 mg PO Q4HR PRN 04/26/20 [History] Donepezil HCl [Aricept] 5 mg PO BEDTIME 04/26/20 [History] Donepezil HCl [Aricept] 10 mg PO DAILY 04/26/20 [History] Ketotifen Fumarate [Alaway] 1 drop OP BID PRN 04/26/20 [History] Menthol [Biofreeze] 1 applic TP BID PRN 04/26/20 [History] cephALEXin [Keflex] 250 mg PO Q6H #24 cap 04/26/20 [Rx] diphenhydrAMINE HCL [Benadryl] 25 mg PO Q8HR PRN 04/26/20 [History] Past Medical History HEENT History: Reports: Impaired Vision Cardiovascular History: Reports: High Cholesterol, Hypertension Respiratory History: Reports: None Gastrointestinal History: Reports: GERD 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 Musculoskeletal History: Reports: Other (See Below) Other Musculoskeletal History: Bone Density disorder Neurological History: Reports: Alzheimers Disease, Seizure Psychiatric History: Reports: Dementia, Depression Endocrine/Metabolic History: Reports: Hypothyroidism Hematologic History: Reports: None Immunologic History: Reports: None Oncologic (Cancer) History: Reports: Bladder Dermatologic History: Reports: Other (See Below) Other Dermatologic History: very dry and flakey skin - Infectious Disease History Infectious Disease History: Reports: None - Past Surgical History HEENT Surgical History: Reports: Cataract Surgery, Tonsillectomy GI Surgical History: Reports: Appendectomy Female Surgical History: Reports: TURBT Social & Family History - Caffeine Use Caffeine Use: Reports: Coffee, Soda, Tea - Living Situation & Occupation Living situation: Reports: Single, 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 ED EXAM, GENERAL - Physical Exam Exam: See Below General Appearance: Alert, WD/WN, No Apparent Distress Head: Atraumatic, Normocephalic Neck: Normal Inspection, Supple, Non-Tender, Full Range of Motion Respiratory/Chest: No Respiratory Distress, Lungs Clear, Normal Breath Sounds, No Accessory Muscle Use, Chest Non-Tender Cardiovascular: Normal Peripheral Pulses, Regular Rate, Rhythm, No Edema, No Gallop, No JVD, No Murmur, No Rub GI/Abdominal: Normal Bowel Sounds, Soft, Non-Tender, No Organomegaly, No Distention, No Abnormal Bruit, No Mass Extremities: Other (Complains of pain with palpation of the left shoulder, left upper arm, left chest wall, left hip, left knee, and left lower leg. She is able to lift her left arm without difficulty. She can also lift her left leg and bend her knee but complains of pain with each movement. No deformities or ecchymosis noted.) Neurological: Alert, CN II-XII Intact, Normal Cognition, Normal Reflexes, No Motor/Sensory Deficits Psychiatric: Normal Affect, Normal Mood Skin Exam: Warm, Dry, Intact, Normal Color, No Rash Course - Vital Signs Last Recorded V/S: Last Vital Signs Temp 97.7 F 11/27/20 18:29 Pulse 57 L 11/27/20 18:29 Resp 16 11/27/20 18:29 BP 170/75 H 11/27/20 18:29 Pulse Ox 96 11/27/20 18:29 - Orders/Labs/Meds Orders: Active Orders 24 hr Category Date Time Status Head wo Cont [CT] Stat Exams 11/27/20 18:34 Taken Hip Min 2V or 3V w Pelvis Lt [CR] Stat Exams 11/27/20 18:34 Taken Humerus Lt [CR] Stat Exams 11/27/20 18:34 Taken Knee Min 4V Lt [CR] Stat Exams 11/27/20 18:34 Taken Ribs 2V w Chest Lt [CR] Stat Exams 11/27/20 18:36 Taken Shoulder Comp Lt [CR] Stat Exams 11/27/20 18:34 Taken Tibia Fibula Lt [CR] Stat Exams 11/27/20 18:42 Taken CULTURE URINE [RM] Stat Lab 11/27/20 19:10 Received Labs: Laboratory Tests 11/27/20 11/27/20 11/27/20 Range/Units 19:12 19:22 19:22 WBC 9.01 (3.98-10.04) K/mm3 RBC 4.18 (3.98-5.22) M/mm3 Hgb 12.5 (11.2-15.7) gm/dl Hct 39.2 (34.1-44.9) % MCV 93.8 (79.4-94.8) fl MCH 29.9 (25.6-32.2) pg MCHC 31.9 L (32.2-35.5) g/dl RDW Std Deviation 42.9 (36.4-46.3) fL Plt Count 207 (182-369) K/mm3 MPV 9.3 L (9.4-12.3) fl Neut % (Auto) 72.6 H (34.0-71.1) % Lymph % (Auto) 14.1 L (19.3-51.7) % [place] % (Auto) 9.9 (4.7-12.5) % Eos % (Auto) 3.0 (0.7-5.8) Baso % (Auto) 0.3 (0.1-1.2) % Neut # (Auto) 6.54 H (1.56-6.13) K/mm3 Lymph # (Auto) 1.27 (1.18-3.74) K/mm3 [place] # (Auto) 0.89 H (0.24-0.36) K/mm3 Eos # (Auto) 0.27 (0.04-0.36) K/mm3 Baso # (Auto) 0.03 (0.01-0.08) K/mm3 Sodium 143 (136-145) mEq/L Potassium 3.2 L (3.5-5.1) mEq/L Chloride 104 (98-107) mEq/L Carbon Dioxide 29 (21-32) mEq/L Anion Gap 13.2 (5-15) BUN 11 (7-18) mg/dL Creatinine 0.8 (0.55-1.02) mg/dL Est Cr Clr Drug Dosing TNP Estimated GFR (MDRD) > 60 (>60) mL/min BUN/Creatinine Ratio 13.8 L (14-18) Glucose 108 (83-115) mg/dL Calcium 8.8 (8.5-10.1) mg/dL Total Bilirubin 0.4 (0.2-1.0) mg/dL AST 17 (15-37) U/L ALT 21 (14-59) U/L Alkaline Phosphatase 83 (46-116) U/L Total Protein 6.8 (6.4-8.2) g/dl Albumin 3.4 (3.4-5.0) g/dl Globulin 3.4 gm/dL Albumin/Globulin Ratio 1.0 (1-2) Urine Color Yellow (Yellow) Urine Appearance Clear (Clear) Urine pH 6.5 (5.0-8.0) Ur Specific [place] 1.020 (1.005-1.030) Urine Protein Negative (Negative) Urine Glucose (UA) Negative (Negative) Urine Ketones Negative (Negative) Urine Occult Blood 2+ H (Negative) Urine Nitrite Negative (Negative) Urine Bilirubin Negative (Negative) Urine Urobilinogen 0.2 (0.2-1.0) Ur Leukocyte Esterase Trace H (Negative) Urine RBC 5-10 H (0-5) /hpf Urine WBC 0-5 (0-5) /hpf Ur Squamous Epith Cells 10-20 H (0-5) /hpf Amorphous Sediment Moderate H (NOT SEEN) /hpf Urine Bacteria Few (FEW) /hpf Urine Mucus Few (FEW) /hpf - Re-Assessments/Exams Free Text/Narrative Re-Assessment/Exam: Patient is an 85-year-old female presenting to the emergency department from [facility] with complaints of left lower extremity pain after a fall. Patient has dementia and complains of pain when she is touched on her left shoulder, left upper arm, left ribs, left hip, left knee, and left lower leg. She is able to use the extremities but states "it hurts ". She is unsure if she hit her head in the fall was not witnessed. I have ordered x-rays of the left shoulder, left humerus, left ribs, left hip, left knee, left tib-fib, and a CT scan of the head. 11/27/20 20:52 Results of the head CT shows no acute intracranial findings. X-rays reviewed by myself and Dr. Pitt were found to have no acute abnormalities or obvious fractures. Nursing staff reports that patient has been up and walking without difficulty. We will discharge her back to the longterm facility. Discharge instructions as documented. Departure - Departure Time of Disposition: 20:54 Disposition: Home, Self-Care 01 Condition: Good Clinical Impression: Left leg pain Fall Qualifiers: Encounter type: initial encounter Qualified Code(s): W19.XXXA - Unspecified fall, initial encounter - Discharge Information *PRESCRIPTION DRUG MONITORING PROGRAM REVIEWED*: No *COPY OF PRESCRIPTION DRUG MONITORING REPORT IN PATIENT CINDY: No Referrals: Dipesh Vega MD [Primary Care Provider] - Forms: ED Department Discharge Additional Instructions: Pamela was evaluated in the emergency department this evening after having an unwitnessed fall and complains of left leg pain. On exam, she complained of pain when touched over her left shoulder, left upper arm, left ribs, left hip, left knee, and left lower leg. X-rays were completed of all of these areas and found to be normal. There are no fractures. CT scan was also completed of her head and showed no abnormalities. She was able to get up and walk in the emergency department without difficulty. Recommend Tylenol as needed for discomfort. Follow-up with primary care provider as needed. Return to ER as needed. Sepsis Event Note (ED) - Evaluation Sepsis Screening Result: No Definite Risk - Focused Exam Vital Signs: Vital Signs Temp Pulse Resp BP Pulse Ox 11/27/20 18:29 97.7 F 57 L 16 170/75 H 96 - My Orders Last 24 Hours: My Active Orders 11/27/20 18:34 Head wo Cont [CT] Stat Hip Min 2V or 3V w Pelvis Lt [CR] Stat Humerus Lt [CR] Stat Knee Min 4V Lt [CR] Stat Shoulder Comp Lt [CR] Stat 11/27/20 18:36 Ribs 2V w Chest Lt [CR] Stat 11/27/20 18:42 Tibia Fibula Lt [CR] Stat 11/27/20 19:10 CULTURE URINE [RM] Stat - Assessment/Plan Last 24 Hours: My Active Orders 11/27/20 18:34 Head wo Cont [CT] Stat Hip Min 2V or 3V w Pelvis Lt [CR] Stat Humerus Lt [CR] Stat Knee Min 4V Lt [CR] Stat Shoulder Comp Lt [CR] Stat 11/27/20 18:36 Ribs 2V w Chest Lt [CR] Stat 11/27/20 18:42 Tibia Fibula Lt [CR] Stat 11/27/20 19:10 CULTURE URINE [RM] Stat
--- NOTE | 2020-11-28 08:47 | CT ---
Head CT Technique: Multiple axial sections through the brain were obtained. Intravenous contrast was not utilized. Comparison: Prior head CT study of 04/30/20. Findings: Ventricles along with basal cisterns and sulci over convexities are mildly to moderately prominent. Diffuse decreased density is noted within mostly the periventricular white matter which most likely represents small vessel ischemic demyelination change. Small lacunar infarct is noted within the right basal ganglia. No other abnormal parenchymal densities are seen. No evidence of intracranial hemorrhage. No midline shift or mass-effect is appreciated. Minimal atherosclerotic calcification is seen within the carotid siphon. Bone window setting shows nothing acute within the visualized mastoid sinuses or within the visualized paranasal sinuses. No acute calvarial finding is appreciated. Minimal soft tissue swelling is seen within the left side of the scalp. Impression: 1. Senescent change as noted above. Minimal scalp soft tissue swelling. 2. No acute intracranial abnormality is identified. Diagnostic code #2 I agree with preliminary report from [facility], finalized on 11/27/20, 8:52 PM CHILDREN'S AIDE
--- NOTE | 2020-11-28 08:49 | CR ---
Left hip and pelvis: AP view of the pelvis was obtained as well as AP and frog leg lateral views of the left hip. Comparison: No previous study. Joint space narrowing is noted within both hips, worse on the left side. Osteopenia is noted. No acute fracture or other bony abnormality is appreciated. Impression: 1. Osteopenia. Degenerative change within both hips, worse on the left side. 2. Nothing acute is appreciated. Diagnostic code #2
--- NOTE | 2020-11-28 08:49 | CR ---
Left humerus: 2 views of the left humerus were obtained. Comparison: No prior humerus study is available. Severe degenerative change is noted within the glenohumeral joint. Osteopenia is present. No discrete fracture or other abnormality is appreciated. Impression: 1. Severe degenerative change within the glenohumeral joint. 2. Nothing acute is definitely appreciated. Diagnostic code #2
--- NOTE | 2020-11-28 08:54 | CR ---
Left 4 views of the left knee were obtained. Comparison: Prior left knee study of 10/02/17. Osteopenia is seen. Joint space narrowing is noted within the lateral joint. Osteophytes are seen off the lateral joint. Chondrocalcinosis is noted within the medial menisci. Osteophytes are noted off the patella. Minimal joint effusion is seen. No discrete fracture or subluxation is appreciated. Impression: 1. Degenerative change as noted above. 2. Minimal joint effusion is seen. 3. Nothing acute is definitely appreciated. Diagnostic code #2
--- NOTE | 2020-11-28 09:06 | CR ---
Left shoulder: 3 views of the left shoulder were obtained. Comparison: No prior shoulder study is available. Severe degenerative change is seen within the glenohumeral joint. Slight osteopenia is present. No acute fracture or other abnormality is appreciated. Cystic change is seen within the humeral head which is believed to be degenerative. Impression: 1. Severe degenerative change within the glenohumeral joint. 2. Nothing acute is otherwise appreciated. Diagnostic code #3
--- NOTE | 2020-11-28 09:06 | CR ---
Chest and left ribs: Frontal view of the chest was obtained as well as 2 views of the left ribs. Comparison: Prior chest x-ray of 04/30/20. Slight scarring is noted within the left lung base. Lungs otherwise are clear. Heart size and mediastinum are within normal limits for the patient's age. Right shoulder prosthesis is noted. Severe degenerative change is seen within the left shoulder. Mild scoliosis with diffuse degenerative disc space narrowing and mild endplate osteophytes are seen within the spine. No discrete left-sided rib abnormality is definitely appreciated. Impression: 1. Findings as noted above. 2. Nothing acute is seen on supine chest x-ray. 3. No definite left-sided rib abnormality is appreciated. Diagnostic code #2
--- NOTE | 2020-11-28 09:20 | CR ---
Left tibia and fibula: 2 views of the left tibia and fibula were obtained. Comparison: No previous study. Mild degenerative change is seen within the knee. Osteopenia is noted. No definite acute fracture or other abnormality is appreciated. Impression: 1. Nothing acute is seen on 2 view left tibia and fibula study. Diagnostic code #2
== END 2020-11-27 22:00 | disposition home or self-care (01) ==
LOC: JD.ED 18:20
DX: M25.562 Pain in left knee (principal); M25.512 Pain in left shoulder; M79.622 Pain in left upper arm; R07.89 Other chest pain; M25.552 Pain in left hip; I10 Essential (primary) hypertension; E78.00 Pure hypercholesterolemia, unspecified; K21.9 Gastro-esophageal reflux disease without esophagitis; E03.9 Hypothyroidism, unspecified; G30.9 Alzheimer's disease, unspecified; F02.80 Dementia in other diseases classified elsewhere, unspecified severity, without behavioral disturbance, psychotic disturbance, mood disturbance, and anxiety; Z88.8 Allergy status to other drugs, medicaments and biological substances; Z88.0 Allergy status to penicillin; Z79.899 Other long term (current) drug therapy
CPT/HCPCS: 36415; 70450; 70450-26; 71101-26-LT; 71101-LT; 73030-26-LT; 73030-LT; 73060-26-LT; 73060-LT; 73502-26-LT; 73502-LT; 73564-26-LT; 73564-LT; 73590-26-LT; 73590-LT; 80053; 81001; 85025; 87086; 87088; 87186; 99283; 99284-25

== ENCOUNTER 2020-12-24 07:48 | Inpatient (IN) | payer MEDICARE, MEDICAID ==
[2020-12-24] MEDS ORDERED: Sodium Chloride 0.9% 500 ML IV ONE (08:36)
--- NOTE | 2020-12-24 08:46 | EDM.PDOC ---
ED HPI GENERAL MEDICAL PROBLEM - General Chief Complaint: Respiratory Problem Stated Complaint: [facility] Time Seen by Provider: 12/24/20 08:11 Source of Information: Reports: Patient, Group Home Records History Limitations: Reports: No Limitations, Other (ED vital signs reveal a temp of 98.0, pulse of 66, respiratory rate of 16, blood pressure 158/82, pulse ox 92% on 2 L of oxygen per nasal cannula) - History of Present Illness INITIAL COMMENTS - FREE TEXT/NARRATIVE: 85-year-old female brought in by [facility] ambulance from [facility] with complaints of new onset shortness of breath, low O2 saturations, and crackles in her lungs. Per nurse report, patient developed shortness of breath and crackles in her lungs last evening. She also has been more weak the last couple of days. No recent fever, nausea, vomiting or headache. Per [facility] report they gave her 1 nebulizer treatment last night which did not seem to help. - Related Data Allergies Allergy/AdvReac Type Severity Reaction Status Date / Time aspirin Allergy Severe Swollen Verified 11/27/20 18:40 Tongue Penicillins Allergy Severe Swollen Verified 11/27/20 18:40 Tongue phenytoin sodium AdvReac Severe Weakness Verified 11/27/20 18:40 [From Dilantin] phenytoin sodium extended AdvReac Severe Weakness Verified 11/27/20 18:40 [From Dilantin] Home Meds: Home Meds atorvaSTATin [Lipitor] 20 mg PO BEDTIME 04/12/14 [History] Acetaminophen [Mapap] 650 mg PO Q12HR 03/28/19 [History] Dupilumab [Dupixent] 300 mg SQ ASDIRECTED 03/28/19 [History] Levothyroxine 25 mcg PO DAILY 03/28/19 [History] Lisinopril 5 mg PO DAILY 03/28/19 [History] Nitroglycerin [Nitrostat] 0.4 mg SL ASDIRECTED PRN 03/28/19 [History] Sertraline [Zoloft] 50 mg PO DAILY 03/28/19 [History] levETIRAcetam [Keppra] 250 mg PO BID 03/28/19 [History] Calcium Carbonate [Tums] 1 tab PO ASDIRECTED 12/28/19 [History] Isosorbide Mononitrate [Imdur] 30 mg PO DAILY 12/28/19 [History] Acetaminophen 500 mg PO Q4HR PRN 04/26/20 [History] Donepezil HCl [Aricept] 5 mg PO BEDTIME 04/26/20 [History] Ketotifen Fumarate [Alaway] 1 drop OP BID PRN 04/26/20 [History] Menthol [Biofreeze] 1 applic TP BID PRN 04/26/20 [History] diphenhydrAMINE HCL [Benadryl] 25 mg PO Q8HR PRN 04/26/20 [History] Past Medical History HEENT History: Reports: Impaired Vision Cardiovascular History: Reports: High Cholesterol, Hypertension Respiratory History: Reports: None Gastrointestinal History: Reports: GERD 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 MANAGER History: Reports: None Musculoskeletal History: Reports: Other (See Below) Other Musculoskeletal History: Bone Density disorder Neurological History: Reports: Alzheimers Disease, Seizure Psychiatric History: Reports: Dementia, Depression Endocrine/Metabolic History: Reports: Hypothyroidism Hematologic History: Reports: None Immunologic History: Reports: None Oncologic (Cancer) History: Reports: Bladder Dermatologic History: Reports: Other (See Below) Other Dermatologic History: very dry and flakey skin - Infectious Disease History Infectious Disease History: Reports: None - Past Surgical History HEENT Surgical History: Reports: Cataract Surgery, Tonsillectomy GI Surgical History: Reports: Appendectomy Female Surgical History: Reports: TURBT Social & Family History - Caffeine Use Caffeine Use: Reports: Coffee, Soda, Tea - Living Situation & Occupation Living situation: Reports: Single, Extended Care Facility ([facility]) 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) ED ROS GENERAL - Review of Systems Review Of Systems: See Below Constitutional: Reports: Chills, Weakness. Denies: Fever HEENT: Reports: No Symptoms Respiratory: Reports: Shortness of Breath, Cough. Denies: Wheezing, Pleuritic Chest Pain, Sputum Cardiovascular: Reports: No Symptoms. Denies: Chest Pain, Blood Pressure Problem, Edema, Palpitations Endocrine: Reports: No Symptoms GI/Abdominal: Reports: No Symptoms. Denies: Abdominal Pain, Constipation, Diarrhea, Nausea, Vomiting : Reports: No Symptoms Musculoskeletal: Reports: No Symptoms Skin: Reports: No Symptoms Neurological: Reports: No Symptoms, Seizure (History of a seizure disorder) Psychiatric: Reports: No Symptoms Hematologic/Lymphatic: Reports: No Symptoms Immunologic: Reports: No Symptoms ED EXAM, GENERAL - Physical Exam Exam: See Below Exam Limited By: No Limitations General Appearance: Alert, WD/WN, Moderate Distress Eye Exam: Bilateral Eye: PERRL Ears: Normal External Exam, Hearing Grossly Normal Nose: Normal Inspection Throat/Mouth: Normal Inspection, Normal Voice, No Airway Compromise. No: Normal Oropharynx (Mucous membranes are extremely dry) Head: Atraumatic, Normocephalic Neck: Normal Inspection, Supple, Non-Tender, Full Range of Motion Respiratory/Chest: No Accessory Muscle Use, Chest Non-Tender, Respiratory Distress, Crackles (Inspiratory crackles bilaterally), Rhonchi (Scattered rhonchi in all moss). No: Lungs Clear, Normal Breath Sounds Cardiovascular: Normal Peripheral Pulses, Regular Rate, Rhythm, No Edema, Systolic Murmur (Grade 3 systolic murmur) Peripheral Pulses: 2+: Radial (L), Radial (R) GI/Abdominal: Normal Bowel Sounds, Soft, Non-Tender, No Distention (Female) Exam: Deferred Rectal (Female) Exam: Deferred Back Exam: Normal Inspection, Full Range of Motion Extremities: Normal Inspection, Normal Range of Motion, Non-Tender, No Pedal Edema, Normal Capillary Refill Neurological: Alert, Oriented, Normal Cognition Psychiatric: Normal Affect, Normal Mood Skin Exam: Warm, Dry, Intact, Normal Color, No Rash Lymphatic: No Adenopathy #1 Interpretation EKG Date: 12/24/20 Time: 09:21 Rhythm: NSR Rate (Beats/Min): 67 [place]: Normal P-Wave: Present QRS: Normal ST-T: Normal QT: Normal EKG Interpretation Comments: Per Dr. Restrepo interpretation: NSR 67, no ischemia Course - Vital Signs Text/Narrative:: 85-year-old resident of [facility] brought in by [facility] ambulance with complaints of new onset shortness of breath, chills, weakness and cough. Upon assessment, patient is laying in bed and she is alert however she is on nasal cannula 2 L. She states she feels shortness of breath and chilled. She also states that she feels weak. Patient's mucous membranes are extremely dry. She does have inspiratory crackles noted bilaterally with scattered rhonchi throughout. Denies any abdominal pain or complaints of diarrhea or constipation. There is no edema appreciated. Per the longterm report, patient does not have a history of COPD or congestive heart failure. I have ordered a Covid panel on this patient as well as a normal saline 500 mL bolus, as previously stated patient's mucous membranes are extremely dry. Last Recorded V/S: Last Vital Signs Temp 98.0 F 12/24/20 07:48 Pulse 66 12/24/20 07:48 Resp 16 12/24/20 07:48 BP 158/82 H 12/24/20 07:48 Pulse Ox 92 L 12/24/20 07:48 - Orders/Labs/Meds Orders: Active Orders 24 hr Category Date Time Status Admission Status [Patient Status] [ADT] Routine ADT 12/24/20 11:25 Active EKG Documentation Completion [RC] STAT Care 12/24/20 08:34 Active Urinary Catheter Assessment [RC] ASDIRECTED Care 12/24/20 09:50 Active Urinary Catheter Insertion [Insert Urinary Catheter] [ Care 12/24/20 09:49 Ordered OM.PC] Stat CBC W/O DIFF,HEMOGRAM [HEME] MOTH@0700 Lab 12/26/20 07:00 Ordered CBC W/O DIFF,HEMOGRAM [HEME] MOTH@0700 Lab 12/30/20 07:00 Ordered CBC W/O DIFF,HEMOGRAM [HEME] MOTH@0700 Lab 01/02/21 07:00 Ordered CBC W/O DIFF,HEMOGRAM [HEME] MOTH@0700 Lab 01/06/21 07:00 Ordered CBC W/O DIFF,HEMOGRAM [HEME] MOTH@0700 Lab 01/09/21 07:00 Ordered CBC W/O DIFF,HEMOGRAM [HEME] MOTH@0700 Lab 01/13/21 07:00 Ordered CULTURE BLOOD [BC] Stat Lab 12/24/20 09:05 Received CULTURE BLOOD [BC] Stat Lab 12/24/20 09:15 Received PROCALCITONIN [REF] Stat Lab 12/24/20 09:05 Received Heparin Sodium/D5W [Heparin 25,000 Units in D5W 500 ML] Med 12/24/20 11:15 Active 25,000 units in 500 ml IV TITRATE Sodium Chloride 0.9% [Normal Saline] 100 ml Med 12/24/20 10:15 Active IV ASDIRECTED Sodium Chloride 0.9% [Saline Flush] Med 12/24/20 08:34 Active 10 ml FLUSH ASDIRECTED PRN Isolation [COMM] Stat Oth 12/24/20 08:33 Ordered Saline Lock Insert [OM.PC] Stat Oth 12/24/20 08:34 Ordered Medication Orders Sodium Chloride (Normal Saline) 100 mls @ 60 mls/hr IV ASDIRECTED ROSANGELA Last Admin: 12/24/20 10:38 Dose: 60 mls/hr Documented by: CRISTIAN Heparin Sodium/Dextrose (Heparin 25,000 Units In D5w 500 Ml) 25,000 units in 500 mls @ 23.743 mls/hr IV TITRATE ROSANGELA; Protocol Sodium Chloride (Saline Flush) 10 ml FLUSH ASDIRECTED PRN PRN Reason: Keep Vein Open Last Admin: 12/24/20 10:38 Dose: 10 ml Documented by: Admin: 12/24/20 09:06 Dose: 10 ml Documented by: MARILYNN Labs: Laboratory Tests 12/24/20 12/24/20 12/24/20 Range/Units 08:51 09:05 09:05 WBC (3.98-10.04) K/mm3 RBC (3.98-5.22) M/mm3 Hgb (11.2-15.7) gm/dl Hct (34.1-44.9) % MCV (79.4-94.8) fl MCH (25.6-32.2) pg MCHC (32.2-35.5) g/dl RDW Std Deviation (36.4-46.3) fL Plt Count (182-369) K/mm3 MPV (9.4-12.3) fl Neut % (Auto) (34.0-71.1) % Lymph % (Auto) (19.3-51.7) % [place] % (Auto) (4.7-12.5) % Eos % (Auto) (0.7-5.8) Baso % (Auto) (0.1-1.2) % Neut # (Auto) (1.56-6.13) K/mm3 Lymph # (Auto) (1.18-3.74) K/mm3 [place] # (Auto) (0.24-0.36) K/mm3 Eos # (Auto) (0.04-0.36) K/mm3 Baso # (Auto) (0.01-0.08) K/mm3 Manual Slide Review PT (9.7-12.0) SECONDS INR APTT 26.2 (21.7-31.4) SECONDS D-Dimer, Quantitative (0.19-0.50) mg/L Sodium (136-145) mEq/L Potassium (3.5-5.1) mEq/L Chloride (98-107) mEq/L Carbon Dioxide (21-32) mEq/L Anion Gap (5-15) BUN (7-18) mg/dL Creatinine (0.55-1.02) mg/dL Est Cr Clr Drug Dosing mL/min Estimated GFR (MDRD) (>60) mL/min BUN/Creatinine Ratio (14-18) Glucose (83-115) mg/dL Lactic Acid (0.4-2.0) mmol/L Calcium (8.5-10.1) mg/dL Ferritin 173 (8-252) ng/ml Total Bilirubin (0.2-1.0) mg/dL AST (15-37) U/L ALT (14-59) U/L Alkaline Phosphatase (46-116) U/L Lactate Dehydrogenase (81-234) U/L Troponin I (0.00-0.056) ng/mL C-Reactive Protein (<1.0) mg/dL Total Protein (6.4-8.2) g/dl Albumin (3.4-5.0) g/dl Globulin gm/dL Albumin/Globulin Ratio (1-2) Urine Color (Yellow) Urine Appearance (Clear) Urine pH (5.0-8.0) Ur Specific [place] (1.005-1.030) Urine Protein (Negative) Urine Glucose (UA) (Negative) Urine Ketones (Negative) Urine Occult Blood (Negative) Urine Nitrite (Negative) Urine Bilirubin (Negative) Urine Urobilinogen (0.2-1.0) Ur Leukocyte Esterase (Negative) Urine RBC (0-5) /hpf Urine WBC (0-5) /hpf Ur Squamous Epith Cells (0-5) /hpf Urine Bacteria (FEW) /hpf Urine Mucus (FEW) /hpf SARS-CoV-2 RNA (POORNIMA) Negative (NEGATIVE) 12/24/20 12/24/20 12/24/20 Range/Units 09:05 09:05 09:05 WBC 10.23 H (3.98-10.04) K/mm3 RBC 4.12 (3.98-5.22) M/mm3 Hgb 12.5 (11.2-15.7) gm/dl Hct 38.4 (34.1-44.9) % MCV 93.2 (79.4-94.8) fl MCH 30.3 (25.6-32.2) pg MCHC 32.6 (32.2-35.5) g/dl RDW Std Deviation 41.9 (36.4-46.3) fL Plt Count 221 (182-369) K/mm3 MPV 9.9 (9.4-12.3) fl Neut % (Auto) 79.0 H (34.0-71.1) % Lymph % (Auto) 6.7 L (19.3-51.7) % [place] % (Auto) 11.5 (4.7-12.5) % Eos % (Auto) 2.2 (0.7-5.8) Baso % (Auto) 0.3 (0.1-1.2) % Neut # (Auto) 8.08 H (1.56-6.13) K/mm3 Lymph # (Auto) 0.69 L (1.18-3.74) K/mm3 [place] # (Auto) 1.18 H (0.24-0.36) K/mm3 Eos # (Auto) 0.22 (0.04-0.36) K/mm3 Baso # (Auto) 0.03 (0.01-0.08) K/mm3 Manual Slide Review Normal smear PT (9.7-12.0) SECONDS INR APTT (21.7-31.4) SECONDS D-Dimer, Quantitative 3.69 H (0.19-0.50) mg/L Sodium 140 (136-145) mEq/L Potassium 3.9 (3.5-5.1) mEq/L Chloride 103 (98-107) mEq/L Carbon Dioxide 26 (21-32) mEq/L Anion Gap 14.9 (5-15) BUN 17 (7-18) mg/dL Creatinine 0.7 (0.55-1.02) mg/dL Est Cr Clr Drug Dosing 45.63 mL/min Estimated GFR (MDRD) > 60 (>60) mL/min BUN/Creatinine Ratio 24.3 H (14-18) Glucose 87 (83-115) mg/dL Lactic Acid (0.4-2.0) mmol/L Calcium 9.1 (8.5-10.1) mg/dL Ferritin (8-252) ng/ml Total Bilirubin 0.5 (0.2-1.0) mg/dL AST 22 (15-37) U/L ALT 26 (14-59) U/L Alkaline Phosphatase 79 (46-116) U/L Lactate Dehydrogenase 244 H (81-234) U/L Troponin I (0.00-0.056) ng/mL C-Reactive Protein 11.3 H* (<1.0) mg/dL Total Protein 7.1 (6.4-8.2) g/dl Albumin 3.3 L (3.4-5.0) g/dl Globulin 3.8 gm/dL Albumin/Globulin Ratio 0.9 L (1-2) Urine Color (Yellow) Urine Appearance (Clear) Urine pH (5.0-8.0) Ur Specific [place] (1.005-1.030) Urine Protein (Negative) Urine Glucose (UA) (Negative) Urine Ketones (Negative) Urine Occult Blood (Negative) Urine Nitrite (Negative) Urine Bilirubin (Negative) Urine Urobilinogen (0.2-1.0) Ur Leukocyte Esterase (Negative) Urine RBC (0-5) /hpf Urine WBC (0-5) /hpf Ur Squamous Epith Cells (0-5) /hpf Urine Bacteria (FEW) /hpf Urine Mucus (FEW) /hpf SARS-CoV-2 RNA (POORNIMA) (NEGATIVE) 12/24/20 12/24/20 12/24/20 Range/Units 09:05 09:05 09:43 WBC (3.98-10.04) K/mm3 RBC (3.98-5.22) M/mm3 Hgb (11.2-15.7) gm/dl Hct (34.1-44.9) % MCV (79.4-94.8) fl MCH (25.6-32.2) pg MCHC (32.2-35.5) g/dl RDW Std Deviation (36.4-46.3) fL Plt Count (182-369) K/mm3 MPV (9.4-12.3) fl Neut % (Auto) (34.0-71.1) % Lymph % (Auto) (19.3-51.7) % [place] % (Auto) (4.7-12.5) % Eos % (Auto) (0.7-5.8) Baso % (Auto) (0.1-1.2) % Neut # (Auto) (1.56-6.13) K/mm3 Lymph # (Auto) (1.18-3.74) K/mm3 [place] # (Auto) (0.24-0.36) K/mm3 Eos # (Auto) (0.04-0.36) K/mm3 Baso # (Auto) (0.01-0.08) K/mm3 Manual Slide Review PT 11.3 (9.7-12.0) SECONDS INR 1.06 APTT (21.7-31.4) SECONDS D-Dimer, Quantitative (0.19-0.50) mg/L Sodium (136-145) mEq/L Potassium (3.5-5.1) mEq/L Chloride (98-107) mEq/L Carbon Dioxide (21-32) mEq/L Anion Gap (5-15) BUN (7-18) mg/dL Creatinine (0.55-1.02) mg/dL Est Cr Clr Drug Dosing mL/min Estimated GFR (MDRD) (>60) mL/min BUN/Creatinine Ratio (14-18) Glucose (83-115) mg/dL Lactic Acid 0.9 (0.4-2.0) mmol/L Calcium (8.5-10.1) mg/dL Ferritin (8-252) ng/ml Total Bilirubin (0.2-1.0) mg/dL AST (15-37) U/L ALT (14-59) U/L Alkaline Phosphatase (46-116) U/L Lactate Dehydrogenase (81-234) U/L Troponin I (0.00-0.056) ng/mL C-Reactive Protein (<1.0) mg/dL Total Protein (6.4-8.2) g/dl Albumin (3.4-5.0) g/dl Globulin gm/dL Albumin/Globulin Ratio (1-2) Urine Color Yellow (Yellow) Urine Appearance Clear (Clear) Urine pH 5.5 (5.0-8.0) Ur Specific [place] > or = 1.030 (1.005-1.030) Urine Protein 1+ H (Negative) Urine Glucose (UA) Negative (Negative) Urine Ketones Negative (Negative) Urine Occult Blood 2+ H (Negative) Urine Nitrite Negative (Negative) Urine Bilirubin Negative (Negative) Urine Urobilinogen 0.2 (0.2-1.0) Ur Leukocyte Esterase Negative (Negative) Urine RBC 10-20 H (0-5) /hpf Urine WBC 0-5 (0-5) /hpf Ur Squamous Epith Cells 0-5 (0-5) /hpf Urine Bacteria Moderate H (FEW) /hpf Urine Mucus Few (FEW) /hpf SARS-CoV-2 RNA (POORNIMA) (NEGATIVE) 12/24/20 Range/Units 10:45 WBC (3.98-10.04) K/mm3 RBC (3.98-5.22) M/mm3 Hgb (11.2-15.7) gm/dl Hct (34.1-44.9) % MCV (79.4-94.8) fl MCH (25.6-32.2) pg MCHC (32.2-35.5) g/dl RDW Std Deviation (36.4-46.3) fL Plt Count (182-369) K/mm3 MPV (9.4-12.3) fl Neut % (Auto) (34.0-71.1) % Lymph % (Auto) (19.3-51.7) % [place] % (Auto) (4.7-12.5) % Eos % (Auto) (0.7-5.8) Baso % (Auto) (0.1-1.2) % Neut # (Auto) (1.56-6.13) K/mm3 Lymph # (Auto) (1.18-3.74) K/mm3 [place] # (Auto) (0.24-0.36) K/mm3 Eos # (Auto) (0.04-0.36) K/mm3 Baso # (Auto) (0.01-0.08) K/mm3 Manual Slide Review PT (9.7-12.0) SECONDS INR APTT (21.7-31.4) SECONDS D-Dimer, Quantitative (0.19-0.50) mg/L Sodium (136-145) mEq/L Potassium (3.5-5.1) mEq/L Chloride (98-107) mEq/L Carbon Dioxide (21-32) mEq/L Anion Gap (5-15) BUN (7-18) mg/dL Creatinine (0.55-1.02) mg/dL Est Cr Clr Drug Dosing mL/min Estimated GFR (MDRD) (>60) mL/min BUN/Creatinine Ratio (14-18) Glucose (83-115) mg/dL Lactic Acid (0.4-2.0) mmol/L Calcium (8.5-10.1) mg/dL Ferritin (8-252) ng/ml Total Bilirubin (0.2-1.0) mg/dL AST (15-37) U/L ALT (14-59) U/L Alkaline Phosphatase (46-116) U/L Lactate Dehydrogenase (81-234) U/L Troponin I < 0.017 (0.00-0.056) ng/mL C-Reactive Protein (<1.0) mg/dL Total Protein (6.4-8.2) g/dl Albumin (3.4-5.0) g/dl Globulin gm/dL Albumin/Globulin Ratio (1-2) Urine Color (Yellow) Urine Appearance (Clear) Urine pH (5.0-8.0) Ur Specific [place] (1.005-1.030) Urine Protein (Negative) Urine Glucose (UA) (Negative) Urine Ketones (Negative) Urine Occult Blood (Negative) Urine Nitrite (Negative) Urine Bilirubin (Negative) Urine Urobilinogen (0.2-1.0) Ur Leukocyte Esterase (Negative) Urine RBC (0-5) /hpf Urine WBC (0-5) /hpf Ur Squamous Epith Cells (0-5) /hpf Urine Bacteria (FEW) /hpf Urine Mucus (FEW) /hpf SARS-CoV-2 RNA (POORNIMA) (NEGATIVE) Meds: Medications Generic Name Dose Route Start Last Admin Trade Name Freq PRN Reason Stop Dose Admin Sodium Chloride 100 mls @ 60 mls/hr 12/24/20 10:15 12/24/20 10:38 Normal Saline IV 60 mls/hr ASDIRECTED ROSANGELA Administration Heparin Sodium/Dextrose 25,000 units in 500 mls @ 23.743 mls/hr 12/24/20 11:15 Heparin 25,000 Units In D5w 500 Ml IV TITRATE ROSANGELA Protocol 18 UNITS/KG/HR Sodium Chloride 10 ml 12/24/20 08:34 12/24/20 10:38 Saline Flush FLUSH 10 ml ASDIRECTED PRN Administration Keep Vein Open Discontinued Medications Generic Name Dose Route Start Last Admin Trade Name Adam PRN Reason Stop Dose Admin Heparin Sodium (Porcine) 5,200 units 12/24/20 11:13 Heparin Sodium IVPUSH 12/24/20 11:14 .BOLUS ONE Heparin Sodium (Porcine) 5,200 units 12/24/20 11:13 Heparin Sodium IVPUSH 12/24/20 11:14 .BOLUS ONE Sodium Chloride 500 mls @ 999 mls/hr 12/24/20 08:36 12/24/20 09:06 Normal Saline IV 12/24/20 09:06 999 mls/hr .BOLUS ONE Administration Iopamidol 100 ml 12/24/20 10:15 12/24/20 10:38 Isovue-370 (76%) IVPUSH 12/24/20 10:16 100 ml ONETIME ONE Administration Sodium Chloride 10 ml 12/24/20 10:15 Saline Flush FLUSH 12/24/20 10:16 ONETIME ONE - Radiology Interpretation Free Text/Narrative:: Radiologist impression portable view of the chest: 1. Heart size and mediastinum are within normal limits for portable technique. Right shoulder prosthesis is noted. Severe degenerative changes noted within the left shoulder. Lungs show no definite acute parenchymal change. Minimal scarring is seen within the left lung base. Slight scoliosis and degenerative changes seen within the spine. - Re-Assessments/Exams Free Text/Narrative Re-Assessment/Exam: 12/24/20 10:26 Labs reveal a WBC of 10.23, neutrophil percentage 79.0, D-dimer 3.69, sodium 140, potassium 3.9 anion gap 14.9, BUN 17, creatinine 0.7 glucose 87, lactic acid 0.9, ferritin 173, LDH 244, C-reactive protein 11.3, Urinalysis reveals urine protein 1+, urine occult blood 2+, urine RBC 10-20, urine bacteria moderate Patient is Covid negative. I have ordered a PE study on this patient due to the elevated D-dimer and low O2 sats. I have also added a troponin to the patient's lab work. 12/24/20 11:[address] of the chest: One. Small saddle thrombus within the distal left main pulmonary artery extending into the left upper and left lower lobe arteries. No other findings of pulmonary embolism are seen. I consulted with our hospitalist, Dr. Driscoll, regarding whether or not he felt c apable of caring and treating this patient. He recommends clarification of the CODE STATUS (patient is a DNR/DNI) and to discuss the case with the family. Patient is stable at this time however if she needs emergent intervention it would be best if she would be in [place] for this however if the patient's power of disability attorney request her to stay he be more than happy to care for her here. 12/24/20 11:23 The patient's power of disability attorney, Sister Tanay, would like for the patient to stay here in [place] in the hospital and be treated as she feels this would be the least traumatic for the patient. I spoke with Dr. Driscoll and he has agreed to admit the patient to the ICU. Have also started a heparin bolus and a heparin drip on the patient. Patient will receive a 5200 unit bolus and heparin infus ion will be started at 18 units/kg/h. 12/24/20 11:26 Patient's troponin is less than 0.017. Departure - Departure Time of Disposition: 11:27 Disposition: Admitted As Inpatient 65 Condition: Fair Clinical Impression: Pulmonary emboli Qualifiers: Pulmonary embolism type: saddle Chronicity: acute Acute cor pulmonale presence: unspecified Qualified Code(s): I26.92 - Saddle embolus of pulmonary artery without acute cor pulmonale - Discharge Information Referrals: Dipesh Vega MD [Primary Care Provider] - Forms: ED Department Discharge Sepsis Event Note (ED) - Focused Exam Vital Signs: Vital Signs Temp Pulse Resp BP Pulse Ox 12/24/20 07:48 98.0 F 66 16 158/82 H 92 L - My Orders Last 24 Hours: My Active Orders 12/24/20 08:33 Isolation [COMM] Stat 12/24/20 08:34 EKG Documentation Completion [RC] STAT Sodium Chloride 0.9% [Saline Flush] 10 ml FLUSH ASDIRECTED PRN Saline Lock Insert [OM.PC] Stat 12/24/20 09:05 CULTURE BLOOD [BC] Stat PROCALCITONIN [REF] Stat 12/24/20 09:15 CULTURE BLOOD [BC] Stat 12/24/20 09:49 Urinary Catheter Insertion [Insert Urinary Catheter] [OM.PC] Stat 12/24/20 09:50 Urinary Catheter Assessment [RC] ASDIRECTED 12/24/20 10:15 Sodium Chloride 0.9% [Normal Saline] 100 ml IV ASDIRECTED 12/24/20 11:15 Heparin Sodium/D5W [Heparin 25,000 Units in D5W 500 ML] 25,000 units in 500 ml IV TITRATE 12/24/20 11:25 Admission Status [Patient Status] [ADT] Routine 12/26/20 07:00 CBC W/O DIFF,HEMOGRAM [HEME] MOTH@0700 12/30/20 07:00 CBC W/O DIFF,HEMOGRAM [HEME] MOTH@0700 01/02/21 07:00 CBC W/O DIFF,HEMOGRAM [HEME] MOTH@0700 01/06/21 07:00 CBC W/O DIFF,HEMOGRAM [HEME] MOTH@0700 01/09/21 07:00 CBC W/O DIFF,HEMOGRAM [HEME] MOTH@0700 01/13/21 07:00 CBC W/O DIFF,HEMOGRAM [HEME] MOTH@0700 - Assessment/Plan Last 24 Hours: My Active Orders 12/24/20 08:33 Isolation [COMM] Stat 12/24/20 08:34 EKG Documentation Completion [RC] STAT Sodium Chloride 0.9% [Saline Flush] 10 ml FLUSH ASDIRECTED PRN Saline Lock Insert [OM.PC] Stat 12/24/20 09:05 CULTURE BLOOD [BC] Stat PROCALCITONIN [REF] Stat 12/24/20 09:15 CULTURE BLOOD [BC] Stat 12/24/20 09:49 Urinary Catheter Insertion [Insert Urinary Catheter] [OM.PC] Stat 12/24/20 09:50 Urinary Catheter Assessment [RC] ASDIRECTED 12/24/20 10:15 Sodium Chloride 0.9% [Normal Saline] 100 ml IV ASDIRECTED 12/24/20 11:15 Heparin Sodium/D5W [Heparin 25,000 Units in D5W 500 ML] 25,000 units in 500 ml IV TITRATE 12/24/20 11:25 Admission Status [Patient Status] [ADT] Routine 12/26/20 07:00 CBC W/O DIFF,HEMOGRAM [HEME] MOTH@69912/30/20 07:00 CBC W/O DIFF,HEMOGRAM [HEME] MOTH@69901/02/21 07:00 CBC W/O DIFF,HEMOGRAM [HEME] MOTH@69901/06/21 07:00 CBC W/O DIFF,HEMOGRAM [HEME] MOTH@69901/09/21 07:00 CBC W/O DIFF,HEMOGRAM [HEME] MOTH@69901/13/21 07:00 CBC W/O DIFF,HEMOGRAM [HEME] MOTH@699
[2020-12-24] MEDS: Sodium Chloride 0.9% 10 ML Syringe FLUSH PRN ×2 (09:06→10:38)
--- NOTE | 2020-12-24 09:12 | CR ---
Chest: Portable view of the chest was obtained. Comparison: Prior chest x-ray of 11/27/20. Heart size and mediastinum are within normal limits for portable technique. Right shoulder prosthesis is noted. Severe degenerative change is noted within the left shoulder. Lungs show no definite acute parenchymal change. Minimal scarring is seen within the left lung base. Slight scoliosis and degenerative change is seen within the spine. Impression: 1. Findings as noted above. 2. Nothing acute is appreciated on portable chest x-ray. Diagnostic code #2
[2020-12-24] MEDS ORDERED: Iopamidol 755 Mg/ML 100 ML Bottle IVPUSH ONE (10:15)
[2020-12-24] MEDS ORDERED: Sodium Chloride 0.9% 100 ML IV SCH (10:15)
[2020-12-24] MEDS ORDERED: Sodium Chloride 0.9% 10 ML Syringe FLUSH ONE (10:15)
--- NOTE | 2020-12-24 11:00 | CT ---
CT chest Technique: Multiple axial sections through the chest were obtained. Intravenous contrast was utilized. Study was performed as a pulmonary angiogram protocol. Comparison: Prior pulmonary angiogram exam of 01/16/19. Findings: Small filling defects are seen within the distal left main pulmonary artery compatible with a small saddle thrombus being seen extending into the left upper and left lower arteries. No other findings of pulmonary embolism are seen. Small lymph node is seen within the pretracheal region measuring approximately 2.2 cm in size. This appears to be slightly increased from prior exam. Stable lymph node within the right hilar region is noted. No other mediastinal adenopathy is seen. Thoracic aorta shows no aneurysm. Atherosclerotic calcification is noted. No pericardial thickening is seen. Small portion of the visualized upper abdominal structures show a small calcified gallstone within the gallbladder. Lung window settings were obtained which show mild chronic change. No acute parenchymal finding is appreciated. Bone window settings were reviewed which show scattered degenerative change within the spine. No acute osseous finding is appreciated. Impression: 1. Small saddle thrombus within the distal left main pulmonary artery extending into the left upper and left lower lobe arteries. No other findings of pulmonary embolism are seen. 2. Single slightly enlarged lymph node within the pretracheal region measuring 2.2 cm. Given this is the only lymph node change, this is most likely benign. 3. Other findings as noted above which are felt to be nonacute. Diagnostic code #5
[2020-12-24] MEDS ORDERED: Heparin Sodium 5,000 Units/ML Vial IVPUSH ONE ×2 (11:13)
[2020-12-24] MEDS: Heparin Sodium/D5W 25,000 UNITS/500 ML BAG IV SCH (11:34)
--- NOTE | 2020-12-24 12:19 | PCM.HP.2 ---
H&P History of Present Illness - General Date of Service: 12/24/20 Admit Problem/Dx: Admission Diagnosis/Problem Admission Diagnosis/Problem PE, Pulmonary embolism Source of Information: Patient, Old Records, Provider, RN, RN Notes Reviewed History Limitations: Reports: No Limitations - History of Present Illness Initial Comments - Free Text/Narative: This is an 85-year-old female who presents to ED on 12/24/2020 via retrograde ambulance due to new onset shortness of breath, low O2 saturations, and crackles noted in her lungs. Per nurse report patient developed shortness of breath and crackles in her lungs the evening prior and has had increased weakness. Denies any recent fever, nausea, vomiting, or headache. Per nursing report from [facility] patient was given 1 nebulizer treatment yesterday evening which did not seem to help. She is requiring 2 L of oxygen via nasal cannula. In the ED twelve-lead EKG is obtained showing sinus rhythm at 6 7 bpm. There are no signs of any ischemia. No signs of RV strain. She is noted to be quite dry in the ED visually and does have inspiratory crackles bilaterally with scattered rhonchi throughout. She is given a 500 mL fluid bolus and labs were obtained. WBC is elevated at 10.23. Hemoglobin 10.5. Platelet 221,000. Neutrophils are elevated at 8.08. Normal smear noted. 140. Potassium 3.9. Carbon dioxide 26. Anion gap 14.9. 117. Creatinine 0.7. GFR greater than 60. Glucose is 87. Calcium is 9.1. Bilirubin 0.5. AST is 22, ALT 26, alkaline phosphatase 79. LDH is elevated to 44. CRP is 11.3. Albumin is 3.3. D-dimer is 0.69. INR is 1.06. aPTT is 26.2. Ferritin 173. Lactic acid 0.9. Procalcitonin is obtained and is pen ding. UA is obtained showing concentrated urine with 1+ protein, 2+ occult blood, 10-20 RBCs, no nitrite or leukocyte esterase. 0-5 WBCs. And moderate bacteria. Troponin is less than 0.017. Chest x-rays obtained showing chronic findings but nothing acute. Given the high D-dimer CT of the chest is obtained showing a small saddle thrombus within the distal left main pulmonary artery extending into the right upper and left lower lobe arteries. No other findings of pulmonary embolism are seen. Single slightly enlarged lymph node within the pretracheal region measuring 2.2 cm. Given this is the only lymph node change this is most likely benign. Other findings as noted above which are felt to be n onacute. She is given a 5200 unit IV push bolus of heparin and started on a heparin drip. CODE STATUS is confirmed and noted to be DNR/DNI. Patient's power of criminal attorney, Sister Tanya, is contacted as discussion ensues on whether or not the patient should be transferred to [place]. EVITA would like the patient to remain here in [place]. She carries a history of HLD, hypertension, GERD, Alzheimer's disease, seizure, depression, hypothyroidism, and bladder cancer. 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 Her PCP is Dr. Vega. She is subsequently admitted to the ICU for management of her saddle pulmonary embolus. - Related Data Allergies/Adverse Reactions: Allergies Allergy/AdvReac Type Severity Reaction Status Date / Time aspirin Allergy Severe Swollen Verified 11/27/20 18:40 Tongue Penicillins Allergy Severe Swollen Verified 11/27/20 18:40 Tongue phenytoin sodium AdvReac Severe Weakness Verified 11/27/20 18:40 [From Dilantin] phenytoin sodium extended AdvReac Severe Weakness Verified 11/27/20 18:40 [From Dilantin] Home Medications: Home Meds atorvaSTATin [Lipitor] 20 mg PO BEDTIME 04/12/14 [History] Acetaminophen [Mapap] 650 mg PO Q12HR 03/28/19 [History] Dupilumab [Dupixent] 300 mg SQ ASDIRECTED 03/28/19 [History] Levothyroxine 25 mcg PO DAILY 03/28/19 [History] Lisinopril 5 mg PO DAILY 03/28/19 [History] Nitroglycerin [Nitrostat] 0.4 mg SL ASDIRECTED PRN 03/28/19 [History] Sertraline [Zoloft] 50 mg PO DAILY 03/28/19 [History] levETIRAcetam [Keppra] 250 mg PO BID 03/28/19 [History] Calcium Carbonate [Tums] 1 tab PO ASDIRECTED 12/28/19 [History] Isosorbide Mononitrate [Imdur] 30 mg PO DAILY 12/28/19 [History] Acetaminophen 500 mg PO Q4HR PRN 04/26/20 [History] Donepezil HCl [Aricept] 5 mg PO BEDTIME 04/26/20 [History] Ketotifen Fumarate [Alaway] 1 drop OP BID PRN 04/26/20 [History] Menthol [Biofreeze] 1 applic TP BID PRN 04/26/20 [History] diphenhydrAMINE HCL [Benadryl] 25 mg PO Q8HR PRN 04/26/20 [History] Past Medical History HEENT History: Reports: Impaired Vision Cardiovascular History: Reports: High Cholesterol, Hypertension Respiratory History: Reports: None Gastrointestinal History: Reports: GERD Other Genitourinary History: bladder tumor removed--TURBT. 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: Reports: None Musculoskeletal History: Reports: Other (See Below) Other Musculoskeletal History: Bone Density disorder Neurological History: Reports: Alzheimers Disease, Seizure Psychiatric History: Reports: Dementia, Depression Endocrine/Metabolic History: Reports: Hypothyroidism Hematologic History: Reports: None Immunologic History: Reports: None Oncologic (Cancer) History: Reports: Bladder Dermatologic History: Reports: Other (See Below) Other Dermatologic History: very dry and flakey skin - Infectious Disease History Infectious Disease History: Reports: None - Past Surgical History HEENT Surgical History: Reports: Cataract Surgery, Tonsillectomy GI Surgical History: Reports: Appendectomy Female Surgical History: Reports: TURBT Social & Family History - Tobacco Use Tobacco Use Status *Q: Never Tobacco User Second Hand Smoke Exposure: No - Caffeine Use Caffeine Use: Reports: None - Recreational Drug Use Recreational Drug Use: No - Living Situation & Occupation Living situation: Reports: Single, Extended Care Facility ([facility]) 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 Denies: Fever, Chills, Malaise, Fatigue HEENT: Reports: No Symptoms. Denies: Headaches, Sore Throat Pulmonary: Reports: Shortness of Breath, Cough. Denies: Wheezing, Pleuritic Chest Pain, Sputum Cardiovascular: Reports: Dyspnea on Exertion. Denies: Chest Pain, Palpitations, Orthopnea, Edema, Lightheadedness Gastrointestinal: Reports: No Symptoms. Denies: Abdominal Pain, Constipation, Diarrhea, Nausea, Vomiting Genitourinary: Reports: No Symptoms. Denies: Pain Musculoskeletal: Reports: No Symptoms Skin: Reports: No Symptoms Psychiatric: Reports: Confusion (Baseline dementia ) Neurological: Reports: Confusion, Pre-Existing Deficit, Difficulty Walking, Weakness, Gait Disturbance. Denies: Dizziness, Headache, Numbness, Seizure (History of seizure disorder), Syncope, Tingling, Tremors Hematologic/Lymphatic: Reports: No Symptoms Immunologic: Reports: No Symptoms Exam - Exam Exam: See Below - Vital Signs Vital Signs: Last Vital Signs Temp 98.0 F 12/24/20 07:48 Pulse 66 12/24/20 07:48 Resp 16 12/24/20 07:48 BP 158/82 H 12/24/20 07:48 Pulse Ox 92 L 12/24/20 07:48 Weight: 145 lb 6.4 oz - Exam Quality Assessment: Supplemental Oxygen (2L), DVT Prophylaxis. No: Urinary Catheter General: Alert, Oriented (mostly), Cooperative. No: Mild Distress HEENT: Conjunctiva Clear, EACs Clear, Posterior Pharynx Clear. No: Mucosa Moist & [place] (somewhat dry ) Neck: Supple, Trachea Midline Lungs: Normal Respiratory Effort, Decreased Breath Sounds, Crackles, Rhonchi Cardiovascular: Regular Rate, Regular Rhythm, Systolic Murmur GI/Abdominal Exam: Normal Bowel Sounds, Soft, Non-Tender, No Distention (Female) Exam: Deferred Rectal (Female) Exam: Deferred Back Exam: Normal Inspection, Decreased Range of Motion Extremities: Normal Inspection, Normal Range of Motion, Non-Tender, No Pedal Edema, Normal Capillary Refill Peripheral Pulses: 2+: Radial (L), Radial (R), Dorsalis Pedis (L), Dorsalis Pedis (R) Skin: Warm, Dry, Intact Neurological: Cranial Nerves Intact (Grossly ) Neuro Extensive - Mental Status: Alert, Normal Mood/Affect - Patient Data Lab Results Last 24 hrs: Laboratory Results - last 24 hr 12/24/20 12/24/20 12/24/20 Range/Units 08:51 09:05 09:05 WBC (3.98-10.04) K/mm3 RBC (3.98-5.22) M/mm3 Hgb (11.2-15.7) gm/dl Hct (34.1-44.9) % MCV (79.4-94.8) fl MCH (25.6-32.2) pg MCHC (32.2-35.5) g/dl RDW Std Deviation (36.4-46.3) fL Plt Count (182-369) K/mm3 MPV (9.4-12.3) fl Neut % (Auto) (34.0-71.1) % Lymph % (Auto) (19.3-51.7) % [place] % (Auto) (4.7-12.5) % Eos % (Auto) (0.7-5.8) Baso % (Auto) (0.1-1.2) % Neut # (Auto) (1.56-6.13) K/mm3 Lymph # (Auto) (1.18-3.74) K/mm3 [place] # (Auto) (0.24-0.36) K/mm3 Eos # (Auto) (0.04-0.36) K/mm3 Baso # (Auto) (0.01-0.08) K/mm3 Manual Slide Review PT (9.7-12.0) SECONDS INR APTT 26.2 (21.7-31.4) SECONDS D-Dimer, Quantitative (0.19-0.50) mg/L Sodium (136-145) mEq/L Potassium (3.5-5.1) mEq/L Chloride (98-107) mEq/L Carbon Dioxide (21-32) mEq/L Anion Gap (5-15) BUN (7-18) mg/dL Creatinine (0.55-1.02) mg/dL Est Cr Clr Drug Dosing mL/min Estimated GFR (MDRD) (>60) mL/min BUN/Creatinine Ratio (14-18) Glucose (83-115) mg/dL Lactic Acid (0.4-2.0) mmol/L Calcium (8.5-10.1) mg/dL Ferritin 173 (8-252) ng/ml Total Bilirubin (0.2-1.0) mg/dL AST (15-37) U/L ALT (14-59) U/L Alkaline Phosphatase (46-116) U/L Lactate Dehydrogenase (81-234) U/L Troponin I (0.00-0.056) ng/mL C-Reactive Protein (<1.0) mg/dL Total Protein (6.4-8.2) g/dl Albumin (3.4-5.0) g/dl Globulin gm/dL Albumin/Globulin Ratio (1-2) Urine Color (Yellow) Urine Appearance (Clear) Urine pH (5.0-8.0) Ur Specific [place] (1.005-1.030) Urine Protein (Negative) Urine Glucose (UA) (Negative) Urine Ketones (Negative) Urine Occult Blood (Negative) Urine Nitrite (Negative) Urine Bilirubin (Negative) Urine Urobilinogen (0.2-1.0) Ur Leukocyte Esterase (Negative) Urine RBC (0-5) /hpf Urine WBC (0-5) /hpf Ur Squamous Epith Cells (0-5) /hpf Urine Bacteria (FEW) /hpf Urine Mucus (FEW) /hpf SARS-CoV-2 RNA ([place]) Negative (NEGATIVE) 12/24/20 12/24/20 12/24/20 Range/Units 09:05 09:05 09:05 WBC 10.23 H (3.98-10.04) K/mm3 RBC 4.12 (3.98-5.22) M/mm3 Hgb 12.5 (11.2-15.7) gm/dl Hct 38.4 (34.1-44.9) % MCV 93.2 (79.4-94.8) fl MCH 30.3 (25.6-32.2) pg MCHC 32.6 (32.2-35.5) g/dl RDW Std Deviation 41.9 (36.4-46.3) fL Plt Count 221 (182-369) K/mm3 MPV 9.9 (9.4-12.3) fl Neut % (Auto) 79.0 H (34.0-71.1) % Lymph % (Auto) 6.7 L (19.3-51.7) % [place] % (Auto) 11.5 (4.7-12.5) % Eos % (Auto) 2.2 (0.7-5.8) Baso % (Auto) 0.3 (0.1-1.2) % Neut # (Auto) 8.08 H (1.56-6.13) K/mm3 Lymph # (Auto) 0.69 L (1.18-3.74) K/mm3 [place] # (Auto) 1.18 H (0.24-0.36) K/mm3 Eos # (Auto) 0.22 (0.04-0.36) K/mm3 Baso # (Auto) 0.03 (0.01-0.08) K/mm3 Manual Slide Review Normal smear PT (9.7-12.0) SECONDS INR APTT (21.7-31.4) SECONDS D-Dimer, Quantitative 3.69 H (0.19-0.50) mg/L Sodium 140 (136-145) mEq/L Potassium 3.9 (3.5-5.1) mEq/L Chloride 103 (98-107) mEq/L Carbon Dioxide 26 (21-32) mEq/L Anion Gap 14.9 (5-15) BUN 17 (7-18) mg/dL Creatinine 0.7 (0.55-1.02) mg/dL Est Cr Clr Drug Dosing 45.63 mL/min Estimated GFR (MDRD) > 60 (>60) mL/min BUN/Creatinine Ratio 24.3 H (14-18) Glucose 87 (83-115) mg/dL Lactic Acid (0.4-2.0) mmol/L Calcium 9.1 (8.5-10.1) mg/dL Ferritin (8-252) ng/ml Total Bilirubin 0.5 (0.2-1.0) mg/dL AST 22 (15-37) U/L ALT 26 (14-59) U/L Alkaline Phosphatase 79 (46-116) U/L Lactate Dehydrogenase 244 H (81-234) U/L Troponin I (0.00-0.056) ng/mL C-Reactive Protein 11.3 H* (<1.0) mg/dL Total Protein 7.1 (6.4-8.2) g/dl Albumin 3.3 L (3.4-5.0) g/dl Globulin 3.8 gm/dL Albumin/Globulin Ratio 0.9 L (1-2) Urine Color (Yellow) Urine Appearance (Clear) Urine pH (5.0-8.0) Ur Specific [place] (1.005-1.030) Urine Protein (Negative) Urine Glucose (UA) (Negative) Urine Ketones (Negative) Urine Occult Blood (Negative) Urine Nitrite (Negative) Urine Bilirubin (Negative) Urine Urobilinogen (0.2-1.0) Ur Leukocyte Esterase (Negative) Urine RBC (0-5) /hpf Urine WBC (0-5) /hpf Ur Squamous Epith Cells (0-5) /hpf Urine Bacteria (FEW) /hpf Urine Mucus (FEW) /hpf SARS-CoV-2 RNA ([place]) (NEGATIVE) 12/24/20 12/24/20 12/24/20 Range/Units 09:05 09:05 09:43 WBC (3.98-10.04) K/mm3 RBC (3.98-5.22) M/mm3 Hgb (11.2-15.7) gm/dl Hct (34.1-44.9) % MCV (79.4-94.8) fl MCH (25.6-32.2) pg MCHC (32.2-35.5) g/dl RDW Std Deviation (36.4-46.3) fL Plt Count (182-369) K/mm3 MPV (9.4-12.3) fl Neut % (Auto) (34.0-71.1) % Lymph % (Auto) (19.3-51.7) % [place] % (Auto) (4.7-12.5) % Eos % (Auto) (0.7-5.8) Baso % (Auto) (0.1-1.2) % Neut # (Auto) (1.56-6.13) K/mm3 Lymph # (Auto) (1.18-3.74) K/mm3 [place] # (Auto) (0.24-0.36) K/mm3 Eos # (Auto) (0.04-0.36) K/mm3 Baso # (Auto) (0.01-0.08) K/mm3 Manual Slide Review PT 11.3 (9.7-12.0) SECONDS INR 1.06 APTT (21.7-31.4) SECONDS D-Dimer, Quantitative (0.19-0.50) mg/L Sodium (136-145) mEq/L Potassium (3.5-5.1) mEq/L Chloride (98-107) mEq/L Carbon Dioxide (21-32) mEq/L Anion Gap (5-15) BUN (7-18) mg/dL Creatinine (0.55-1.02) mg/dL Est Cr Clr Drug Dosing mL/min Estimated GFR (MDRD) (>60) mL/min BUN/Creatinine Ratio (14-18) Glucose (83-115) mg/dL Lactic Acid 0.9 (0.4-2.0) mmol/L Calcium (8.5-10.1) mg/dL Ferritin (8-252) ng/ml Total Bilirubin (0.2-1.0) mg/dL AST (15-37) U/L ALT (14-59) U/L Alkaline Phosphatase (46-116) U/L Lactate Dehydrogenase (81-234) U/L Troponin I (0.00-0.056) ng/mL C-Reactive Protein (<1.0) mg/dL Total Protein (6.4-8.2) g/dl Albumin (3.4-5.0) g/dl Globulin gm/dL Albumin/Globulin Ratio (1-2) Urine Color Yellow (Yellow) Urine Appearance Clear (Clear) Urine pH 5.5 (5.0-8.0) Ur Specific [place] > or = 1.030 (1.005-1.030) Urine Protein 1+ H (Negative) Urine Glucose (UA) Negative (Negative) Urine Ketones Negative (Negative) Urine Occult Blood 2+ H (Negative) Urine Nitrite Negative (Negative) Urine Bilirubin Negative (Negative) Urine Urobilinogen 0.2 (0.2-1.0) Ur Leukocyte Esterase Negative (Negative) Urine RBC 10-20 H (0-5) /hpf Urine WBC 0-5 (0-5) /hpf Ur Squamous Epith Cells 0-5 (0-5) /hpf Urine Bacteria Moderate H (FEW) /hpf Urine Mucus Few (FEW) /hpf SARS-CoV-2 RNA ([place]) (NEGATIVE) 12/24/20 Range/Units 10:45 WBC (3.98-10.04) K/mm3 RBC (3.98-5.22) M/mm3 Hgb (11.2-15.7) gm/dl Hct (34.1-44.9) % MCV (79.4-94.8) fl MCH (25.6-32.2) pg MCHC (32.2-35.5) g/dl RDW Std Deviation (36.4-46.3) fL Plt Count (182-369) K/mm3 MPV (9.4-12.3) fl Neut % (Auto) (34.0-71.1) % Lymph % (Auto) (19.3-51.7) % [place] % (Auto) (4.7-12.5) % Eos % (Auto) (0.7-5.8) Baso % (Auto) (0.1-1.2) % Neut # (Auto) (1.56-6.13) K/mm3 Lymph # (Auto) (1.18-3.74) K/mm3 [place] # (Auto) (0.24-0.36) K/mm3 Eos # (Auto) (0.04-0.36) K/mm3 Baso # (Auto) (0.01-0.08) K/mm3 Manual Slide Review PT (9.7-12.0) SECONDS INR APTT (21.7-31.4) SECONDS D-Dimer, Quantitative (0.19-0.50) mg/L Sodium (136-145) mEq/L Potassium (3.5-5.1) mEq/L Chloride (98-107) mEq/L Carbon Dioxide (21-32) mEq/L Anion Gap (5-15) BUN (7-18) mg/dL Creatinine (0.55-1.02) mg/dL Est Cr Clr Drug Dosing mL/min Estimated GFR (MDRD) (>60) mL/min BUN/Creatinine Ratio (14-18) Glucose (83-115) mg/dL Lactic Acid (0.4-2.0) mmol/L Calcium (8.5-10.1) mg/dL Ferritin (8-252) ng/ml Total Bilirubin (0.2-1.0) mg/dL AST (15-37) U/L ALT (14-59) U/L Alkaline Phosphatase (46-116) U/L Lactate Dehydrogenase (81-234) U/L Troponin I < 0.017 (0.00-0.056) ng/mL C-Reactive Protein (<1.0) mg/dL Total Protein (6.4-8.2) g/dl Albumin (3.4-5.0) g/dl Globulin gm/dL Albumin/Globulin Ratio (1-2) Urine Color (Yellow) Urine Appearance (Clear) Urine pH (5.0-8.0) Ur Specific [place] (1.005-1.030) Urine Protein (Negative) Urine Glucose (UA) (Negative) Urine Ketones (Negative) Urine Occult Blood (Negative) Urine Nitrite (Negative) Urine Bilirubin (Negative) Urine Urobilinogen (0.2-1.0) Ur Leukocyte Esterase (Negative) Urine RBC (0-5) /hpf Urine WBC (0-5) /hpf Ur Squamous Epith Cells (0-5) /hpf Urine Bacteria (FEW) /hpf Urine Mucus (FEW) /hpf SARS-CoV-2 RNA ([place]) (NEGATIVE) Result Diagrams: 12/24/20 09:05 12/24/20 09:05 Sepsis Event Note - Evaluation Sepsis Screening Result: No Definite Risk - Focused Exam Vital Signs: Vital Signs Temp Pulse Resp BP Pulse Ox 12/24/20 07:48 98.0 F 66 16 158/82 H 92 L - Problem List (1) HLD (hyperlipidemia) SNOMED Code(s): 50573343 ICD Code: E78.5 - HYPERLIPIDEMIA, UNSPECIFIED Status: Chronic Priority: Low Current Visit: No Qualifiers: Hyperlipidemia type: unspecified Qualified Code(s): E78.5 - Hyperlipidemia, unspecified (2) HTN (hypertension) SNOMED Code(s): 67100755 ICD Code: I10 - ESSENTIAL (PRIMARY) HYPERTENSION Status: Chronic Priority: Medium Current Visit: No Qualifiers: Hypertension type: unspecified Qualified Code(s): I10 - Essential (primary) hypertension (3) GERD (gastroesophageal reflux disease) SNOMED Code(s): 010448538 ICD Code: K21.9 - GASTRO-ESOPHAGEAL REFLUX DISEASE WITHOUT ESOPHAGITIS Status: Chronic Priority: Low Current Visit: No Qualifiers: Esophagitis presence: esophagitis presence not specified Qualified Code(s): K21.9 - Gastro-esophageal reflux disease without esophagitis (4) Alzheimers disease SNOMED Code(s): 55750971 ICD Code: G30.9 - ALZHEIMER'S DISEASE, UNSPECIFIED; F02.80 - DEMENTIA IN OTH DISEASES CLASSD ELSWHR W/O BEHAVRL DISTURB Status: Chronic Priority: Medium Current Visit: No (5) Depression SNOMED Code(s): 54404998 ICD Code: F32.9 - MAJOR DEPRESSIVE DISORDER, SINGLE EPISODE, UNSPECIFIED Status: Chronic Priority: Low Current Visit: No Qualifiers: Depression Type: other depression Qualified Code(s): F32.89 - Other specified depressive episodes (6) Hypothyroidism SNOMED Code(s): 79540128 ICD Code: E03.9 - HYPOTHYROIDISM, UNSPECIFIED Status: Chronic Priority: Medium Current Visit: No Qualifiers: Hypothyroidism type: unspecified Qualified Code(s): E03.9 - Hypothyroidism, unspecified (7) History of bladder cancer SNOMED Code(s): 112430802, 355634209 ICD Code: Z85.51 - PERSONAL HISTORY OF MALIGNANT NEOPLASM OF BLADDER Status: Chronic Priority: Low Current Visit: No (8) Pulmonary emboli SNOMED Code(s): 78343817 ICD Code: I26.99 - OTHER PULMONARY EMBOLISM WITHOUT ACUTE COR PULMONALE Status: Acute Priority: High Current Visit: Yes Qualifiers: Pulmonary embolism type: saddle Chronicity: acute Acute cor pulmonale presence: unspecified Qualified Code(s): I26.92 - Saddle embolus of pulmonary artery without acute cor pulmonale (9) Seizure disorder SNOMED Code(s): 374107938 ICD Code: G40.909 - EPILEPSY, UNSP, NOT INTRACTABLE, WITHOUT STATUS EPILEPTICUS Status: Chronic Priority: Low Current Visit: No (10) Hypoxia SNOMED Code(s): 526712264 ICD Code: R09.02 - HYPOXEMIA Status: Acute Priority: High Current Visit: Yes Problem List Initiated/Reviewed/Updated: Yes Orders Last 24hrs: Active Orders 24 hr Category Date Time Status Admission Status [Patient Status] [ADT] Routine ADT 12/24/20 11:25 Active EKG Documentation Completion [RC] STAT Care 12/24/20 08:34 Active Urinary Catheter Assessment [RC] ASDIRECTED Care 12/24/20 09:50 Active Urinary Catheter Insertion [Insert Urinary Catheter] [ Care 12/24/20 09:49 Ordered OM.PC] Stat CBC W/O DIFF,HEMOGRAM [HEME] MOTH@0700 Lab 12/26/20 07:00 Ordered CBC W/O DIFF,HEMOGRAM [HEME] MOTH@0700 Lab 12/30/20 07:00 Ordered CBC W/O DIFF,HEMOGRAM [HEME] MOTH@0700 Lab 01/02/21 07:00 Ordered CBC W/O DIFF,HEMOGRAM [HEME] MOTH@0700 Lab 01/06/21 07:00 Ordered CBC W/O DIFF,HEMOGRAM [HEME] MOTH@0700 Lab 01/09/21 07:00 Ordered CBC W/O DIFF,HEMOGRAM [HEME] MOTH@0700 Lab 01/13/21 07:00 Ordered CULTURE BLOOD [BC] Stat Lab 12/24/20 09:05 Received CULTURE BLOOD [BC] Stat Lab 12/24/20 09:15 Received PROCALCITONIN [REF] Stat Lab 12/24/20 09:05 Received Heparin Sodium/D5W [Heparin 25,000 Units in D5W 500 ML] Med 12/24/20 11:15 Active 25,000 units in 500 ml IV TITRATE Sodium Chloride 0.9% [Normal Saline] 100 ml Med 12/24/20 10:15 Active IV ASDIRECTED Sodium Chloride 0.9% [Saline Flush] Med 12/24/20 08:34 Active 10 ml FLUSH ASDIRECTED PRN Isolation [COMM] Stat Oth 12/24/20 08:33 Ordered Saline Lock Insert [OM.PC] Stat Oth 12/24/20 08:34 Ordered Medication Orders Sodium Chloride (Normal Saline) 100 mls @ 60 mls/hr IV ASDIRECTED ROSANGELA Last Admin: 12/24/20 10:38 Dose: 60 mls/hr Documented by: CRISTIAN Heparin Sodium/Dextrose (Heparin 25,000 Units In D5w 500 Ml) 25,000 units in 500 mls @ 23.743 mls/hr IV TITRATE ROSANGELA; Protocol Last Admin: 12/24/20 11:34 Dose: 18 units/kg/hr, 23.743 mls/hr Documented by: MARILYNN Cosigned by: SHOBHA Sodium Chloride (Saline Flush) 10 ml FLUSH ASDIRECTED PRN PRN Reason: Keep Vein Open Last Admin: 12/24/20 10:38 Dose: 10 ml Documented by: Admin: 12/24/20 09:06 Dose: 10 ml Documented by: MARILYNN Assessment/Plan Comment:: Assessment - day of admission - 12/24/20 * 85-year-old female presents to our ED from [facility] due to worsening shortness of breath. * Requiring 2 L in the emergency room with no baseline oxygen need. 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 * Noted to have inspiratory crackles bilaterally and scattered rhonchi throughout. * EKG obtained in ED shows normal sinus rhythm at 67 bpm with no ischemia or signs of RV strain. * Labs obtained in ED: * WBC 10.23 * Hemoglobin 12.5 * Platelet 221 * Neutrophils elevated at 8.08 * Sodium 140 * Potassium 3.9 * Carbon dioxide 26 * Anion gap 14.9 * BUN 17, creatinine 0.7, GFR greater than 60 * Bilirubin 0.5 * AST 22, ALT 26, alkaline phosphatase 79 * CRP 11.3 * Albumin 3.3 * INR 1.06 * APTT 26.2 * Ferritin 173 * LDH 244 * Lactic acid 0.9 * UA negative but concentrated urine, 1+ protein, 2+ occult blood, 10-20 RBCs, and moderate bacteria are noted. * Troponin less than 0.017 * Procalcitonin is pending * D-Dimer 3.69 * Chest x-ray obtained and shows nothing acute * CT of the chest obtained and shows * 1. Small cell thrombus within the distal left main pulmonary artery extending into the left upper and left lower lobe arteries. No other findings of pulmonary embolism are seen. * 2. Single slightly enlarged lymph node within the pretracheal region measuring 2.2 cm. Given this is the only lymph no change, this is most like ly benign. * 3. Other findings as noted above which are felt to be nonacute. * She is given a 1 L fluid bolus initially in the ED and after PE findings is given a 5200 unit heparin IV push bolus. * Started on a heparin drip per protocol. * Patient's power of criminal attorney, Sister Tanya, contacted as transfer was recommended. They would like patient to stay in [place]. * DNR/DNI status confirmed. * She carries a history of HLD, HTN, GERD, Alzheimer's disease, seizure, dementia, depression, hypothyroidism, bladder cancer. * She is subsequent admitted to the ICU for management of her acute pulmonary embolus. PLAN: Pulmonary emboli Hypoxia * Continue heparin drip per protocol * Repeat APTT per protocol. * Discuss blood thinner with patient POA once patient completes heparin protocol * Echo ordered * Bilateral lower extremity ultrasound to rule out DVT - ordered * Telemetry * Check pro-BNP * Oxygen as needed * Monitor pulse oximetry * We will add PT/OT once patient is more stable * Case management/social worker health services for discharge planning * Daily labs Seizure disorder * Check Keppra level * Continue home Keppra dosing * Seizure precautions Alzheimers disease * Home medications as ordered * Fall precautions * Let me sleep protocol HLD (hyperlipidemia) HTN (hypertension) GERD (gastroesophageal reflux disease) Depression Hypothyroidism History of bladder cancer * Review/reconcile home medications * Monitor labs and vital signs * Check TSH * No acute concerns Code status: DNR/DNI (Confirmed by ED provider with POA) PCP: Dr. 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 Transfer to [place] for higher level care was recommended at admission however patient's power of criminal attorney refused. Length of stay likely 3 to 4 days. - Mortality Measure Prognosis:: Poor (Overall poor prognosis given patient's chronic medical conditions.)
[2020-12-24] MEDS ORDERED: Acetaminophen 325 MG Tab PO PRN (12:20)
[2020-12-24] MEDS ORDERED: Ondansetron 4 MG/2 ML SDV IV PRN (12:20)
[2020-12-24] MEDS ORDERED: Docusate Sodium 100 MG Cap PO PRN (12:20)
[2020-12-24] MEDS ORDERED: [UNRECOGNIZED DRUG - OTHER] PO PRN (19:54)
[2020-12-24] MEDS ORDERED: KETOTIFEN FUMARATE OP PRN (19:54)
[2020-12-24] MEDS ORDERED: Non-Formulary Medication 1 Each (Acetaminophen 500 MG) PO PRN (19:54)
[2020-12-24] MEDS ORDERED: Non-Formulary Medication 1 Each (Menthol [Biofreeze] 1 APPLIC) TP PRN (19:54)
[2020-12-24] MEDS ORDERED: Magnesium Hydroxide 400 MG/5 ML Susp 30 ML Cup PO PRN (19:54)
[2020-12-24] MEDS ORDERED: Aluminum Hydroxide/Magnesium Hydroxide/Simethicone Susp 30 ML Cup PO PRN (19:54)
[2020-12-24] MEDS ORDERED: Nitroglycerin 0.4 MG Tab.SL SL PRN (19:54)
[2020-12-24] MEDS ORDERED: DOXYLAMINE PO PRN (19:54)
[2020-12-24] MEDS ORDERED: Calcium Carbonate 500 MG Tab.Chew PO PRN (20:00)
[2020-12-24] MEDS ORDERED: DUPILUMAB 300 MG SQ SCH (20:00)
[2020-12-24] MEDS: atorvaSTATin 20 MG Tab PO SCH (21:51)
[2020-12-24] MEDS: Donepezil 10 MG Tab PO SCH (21:51)
[2020-12-24] MEDS: Acetaminophen 325 MG Tab PO SCH (21:51)
[2020-12-24] MEDS: levETIRAcetam 500 MG Tab PO SCH (21:52)
[2020-12-24 22:22] VITALS: PULSE 67
[2020-12-25] MEDS: Levothyroxine 25 MCG Tab PO SCH (05:56)
--- NOTE | 2020-12-25 07:14 | PCM.PN ---
- General Info Date of Service: 12/25/20 Admission Dx/Problem (Free Text): Admission Diagnosis/Problem Admission Diagnosis/Problem PE, Pulmonary embolism Subjective Update: In to see Pamela. She is quite confused today but does respond to questioning. She reports that "she does not know enough to have any questions." She had been refusing her echo and lower extremity ultrasound. Importance of this was discussed with the patient and she agrees to have them today. Per nursing she had been refusing her oxygen throughout the night, however day nurse was able to convince the patient to continue to wear it. Saturations drop into the mid to upper 80s without oxygen. She is quite confused today. Remains on heparin drip. Labs continue to look good. Blood cultures are negative and procalcitonin is 0.07, ruling out infection. Continue current treatment plan. Functional Status: Reports: Pain Controlled, Tolerating Diet, Ambulating, Urinating. Denies: New Symptoms - Review of Systems General: Reports: Weakness. Denies: Fever, Fatigue, Malaise, Chills HEENT: Reports: No Symptoms. Denies: Headaches, Sore Throat Pulmonary: Reports: Shortness of Breath. Denies: Cough, Sputum Cardiovascular: Reports: Dyspnea on Exertion. Denies: Chest Pain, Palpitations Gastrointestinal: Reports: No Symptoms. Denies: Abdominal Pain, Constipation, Diarrhea, Nausea, Vomiting Genitourinary: Reports: No Symptoms. Denies: Pain Musculoskeletal: Reports: No Symptoms Skin: Reports: No Symptoms Neurological: Reports: Confusion, Pre-Existing Deficit (Baseline dementia), Difficulty Walking, Weakness, Gait Disturbance Psychiatric: Reports: No Symptoms - Patient Data Vitals - Most Recent: Last Vital Signs Temp 98 F 12/25/20 04:00 Pulse 67 12/24/20 20:00 Resp 18 12/25/20 04:00 BP 152/106 H 12/25/20 04:00 Pulse Ox 95 12/25/20 06:32 Weight - Most Recent: 145 lb 14.4 oz I&O - Last 24 Hours: Intake & Output 12/24/20 12/25/20 12/25/20 22:59 06:59 14:59 Intake Total 241 Balance 241 Lab Results Last 24 Hours: Laboratory Results - last 24 hr 12/24/20 12/24/20 12/24/20 Range/Units 08:51 09:05 09:05 WBC (3.98-10.04) K/mm3 RBC (3.98-5.22) M/mm3 Hgb (11.2-15.7) gm/dl Hct (34.1-44.9) % MCV (79.4-94.8) fl MCH (25.6-32.2) pg MCHC (32.2-35.5) g/dl RDW Std Deviation (36.4-46.3) fL Plt Count (182-369) K/mm3 MPV (9.4-12.3) fl Neut % (Auto) (34.0-71.1) % Lymph % (Auto) (19.3-51.7) % [place] % (Auto) (4.7-12.5) % Eos % (Auto) (0.7-5.8) Baso % (Auto) (0.1-1.2) % Neut # (Auto) (1.56-6.13) K/mm3 Lymph # (Auto) (1.18-3.74) K/mm3 [place] # (Auto) (0.24-0.36) K/mm3 Eos # (Auto) (0.04-0.36) K/mm3 Baso # (Auto) (0.01-0.08) K/mm3 Manual Slide Review PT (9.7-12.0) SECONDS INR APTT 26.2 (21.7-31.4) SECONDS D-Dimer, Quantitative (0.19-0.50) mg/L Sodium (136-145) mEq/L Potassium (3.5-5.1) mEq/L Chloride (98-107) mEq/L Carbon Dioxide (21-32) mEq/L Anion Gap (5-15) BUN (7-18) mg/dL Creatinine (0.55-1.02) mg/dL Est Cr Clr Drug Dosing mL/min Estimated GFR (MDRD) (>60) mL/min BUN/Creatinine Ratio (14-18) Glucose (83-115) mg/dL Lactic Acid (0.4-2.0) mmol/L Calcium (8.5-10.1) mg/dL Ferritin 173 (8-252) ng/ml Total Bilirubin (0.2-1.0) mg/dL AST (15-37) U/L ALT (14-59) U/L Alkaline Phosphatase (46-116) U/L Lactate Dehydrogenase (81-234) U/L Troponin I (0.00-0.056) ng/mL C-Reactive Protein (<1.0) mg/dL NT-Pro-B Natriuret Pep (0-450) pg/mL Total Protein (6.4-8.2) g/dl Albumin (3.4-5.0) g/dl Globulin gm/dL Albumin/Globulin Ratio (1-2) Procalcitonin ng/mL TSH 3rd Generation (0.358-3.74) uIU/mL Urine Color (Yellow) Urine Appearance (Clear) Urine pH (5.0-8.0) Ur Specific Echo (1.005-1.030) Urine Protein (Negative) Urine Glucose (UA) (Negative) Urine Ketones (Negative) Urine Occult Blood (Negative) Urine Nitrite (Negative) Urine Bilirubin (Negative) Urine Urobilinogen (0.2-1.0) Ur Leukocyte Esterase (Negative) Urine RBC (0-5) /hpf Urine WBC (0-5) /hpf Ur Squamous Epith Cells (0-5) /hpf Urine Bacteria (FEW) /hpf Urine Mucus (FEW) /hpf SARS-CoV-2 RNA (PO[facility]A) Negative (NEGATIVE) MRSA (PCR) 12/24/20 12/24/20 12/24/20 Range/Units 09:05 09:05 09:05 WBC 10.23 H (3.98-10.04) K/mm3 RBC 4.12 (3.98-5.22) M/mm3 Hgb 12.5 (11.2-15.7) gm/dl Hct 38.4 (34.1-44.9) % MCV 93.2 (79.4-94.8) fl MCH 30.3 (25.6-32.2) pg MCHC 32.6 (32.2-35.5) g/dl RDW Std Deviation 41.9 (36.4-46.3) fL Plt Count 221 (182-369) K/mm3 MPV 9.9 (9.4-12.3) fl Neut % (Auto) 79.0 H (34.0-71.1) % Lymph % (Auto) 6.7 L (19.3-51.7) % [place] % (Auto) 11.5 (4.7-12.5) % Eos % (Auto) 2.2 (0.7-5.8) Baso % (Auto) 0.3 (0.1-1.2) % Neut # (Auto) 8.08 H (1.56-6.13) K/mm3 Lymph # (Auto) 0.69 L (1.18-3.74) K/mm3 [place] # (Auto) 1.18 H (0.24-0.36) K/mm3 Eos # (Auto) 0.22 (0.04-0.36) K/mm3 Baso # (Auto) 0.03 (0.01-0.08) K/mm3 Manual Slide Review Normal smear PT (9.7-12.0) SECONDS INR APTT (21.7-31.4) SECONDS D-Dimer, Quantitative 3.69 H (0.19-0.50) mg/L Sodium 140 (136-145) mEq/L Potassium 3.9 (3.5-5.1) mEq/L Chloride 103 (98-107) mEq/L Carbon Dioxide 26 (21-32) mEq/L Anion Gap 14.9 (5-15) BUN 17 (7-18) mg/dL Creatinine 0.7 (0.55-1.02) mg/dL Est Cr Clr Drug Dosing 45.63 mL/min Estimated GFR (MDRD) > 60 (>60) mL/min BUN/Creatinine Ratio 24.3 H (14-18) Glucose 87 (83-115) mg/dL Lactic Acid (0.4-2.0) mmol/L Calcium 9.1 (8.5-10.1) mg/dL Ferritin (8-252) ng/ml Total Bilirubin 0.5 (0.2-1.0) mg/dL AST 22 (15-37) U/L ALT 26 (14-59) U/L Alkaline Phosphatase 79 (46-116) U/L Lactate Dehydrogenase 244 H (81-234) U/L Troponin I (0.00-0.056) ng/mL C-Reactive Protein 11.3 H* (<1.0) mg/dL NT-Pro-B Natriuret Pep (0-450) pg/mL Total Protein 7.1 (6.4-8.2) g/dl Albumin 3.3 L (3.4-5.0) g/dl Globulin 3.8 gm/dL Albumin/Globulin Ratio 0.9 L (1-2) Procalcitonin ng/mL TSH 3rd Generation (0.358-3.74) uIU/mL Urine Color (Yellow) Urine Appearance (Clear) Urine pH (5.0-8.0) Ur Specific Echo (1.005-1.030) Urine Protein (Negative) Urine Glucose (UA) (Negative) Urine Ketones (Negative) Urine Occult Blood (Negative) Urine Nitrite (Negative) Urine Bilirubin (Negative) Urine Urobilinogen (0.2-1.0) Ur Leukocyte Esterase (Negative) Urine RBC (0-5) /hpf Urine WBC (0-5) /hpf Ur Squamous Epith Cells (0-5) /hpf Urine Bacteria (FEW) /hpf Urine Mucus (FEW) /hpf SARS-CoV-2 RNA (PO[facility]A) (NEGATIVE) MRSA (PCR) 12/24/20 12/24/20 12/24/20 Range/Units 09:05 09:05 09:05 WBC (3.98-10.04) K/mm3 RBC (3.98-5.22) M/mm3 Hgb (11.2-15.7) gm/dl Hct (34.1-44.9) % MCV (79.4-94.8) fl MCH (25.6-32.2) pg MCHC (32.2-35.5) g/dl RDW Std Deviation (36.4-46.3) fL Plt Count (182-369) K/mm3 MPV (9.4-12.3) fl Neut % (Auto) (34.0-71.1) % Lymph % (Auto) (19.3-51.7) % [place] % (Auto) (4.7-12.5) % Eos % (Auto) (0.7-5.8) Baso % (Auto) (0.1-1.2) % Neut # (Auto) (1.56-6.13) K/mm3 Lymph # (Auto) (1.18-3.74) K/mm3 [place] # (Auto) (0.24-0.36) K/mm3 Eos # (Auto) (0.04-0.36) K/mm3 Baso # (Auto) (0.01-0.08) K/mm3 Manual Slide Review PT 11.3 (9.7-12.0) SECONDS INR 1.06 APTT (21.7-31.4) SECONDS D-Dimer, Quantitative (0.19-0.50) mg/L Sodium (136-145) mEq/L Potassium (3.5-5.1) mEq/L Chloride (98-107) mEq/L Carbon Dioxide (21-32) mEq/L Anion Gap (5-15) BUN (7-18) mg/dL Creatinine (0.55-1.02) mg/dL Est Cr Clr Drug Dosing mL/min Estimated GFR (MDRD) (>60) mL/min BUN/Creatinine Ratio (14-18) Glucose (83-115) mg/dL Lactic Acid 0.9 (0.4-2.0) mmol/L Calcium (8.5-10.1) mg/dL Ferritin (8-252) ng/ml Total Bilirubin (0.2-1.0) mg/dL AST (15-37) U/L ALT (14-59) U/L Alkaline Phosphatase (46-116) U/L Lactate Dehydrogenase (81-234) U/L Troponin I (0.00-0.056) ng/mL C-Reactive Protein (<1.0) mg/dL NT-Pro-B Natriuret Pep (0-450) pg/mL Total Protein (6.4-8.2) g/dl Albumin (3.4-5.0) g/dl Globulin gm/dL Albumin/Globulin Ratio (1-2) Procalcitonin 0.07 ng/mL TSH 3rd Generation (0.358-3.74) uIU/mL Urine Color (Yellow) Urine Appearance (Clear) Urine pH (5.0-8.0) Ur Specific Echo (1.005-1.030) Urine Protein (Negative) Urine Glucose (UA) (Negative) Urine Ketones (Negative) Urine Occult Blood (Negative) Urine Nitrite (Negative) Urine Bilirubin (Negative) Urine Urobilinogen (0.2-1.0) Ur Leukocyte Esterase (Negative) Urine RBC (0-5) /hpf Urine WBC (0-5) /hpf Ur Squamous Epith Cells (0-5) /hpf Urine Bacteria (FEW) /hpf Urine Mucus (FEW) /hpf SARS-CoV-2 RNA ([place]) (NEGATIVE) MRSA (PCR) 12/24/20 12/24/20 12/24/20 Range/Units 09:43 10:45 10:45 WBC (3.98-10.04) K/mm3 RBC (3.98-5.22) M/mm3 Hgb (11.2-15.7) gm/dl Hct (34.1-44.9) % MCV (79.4-94.8) fl MCH (25.6-32.2) pg MCHC (32.2-35.5) g/dl RDW Std Deviation (36.4-46.3) fL Plt Count (182-369) K/mm3 MPV (9.4-12.3) fl Neut % (Auto) (34.0-71.1) % Lymph % (Auto) (19.3-51.7) % [place] % (Auto) (4.7-12.5) % Eos % (Auto) (0.7-5.8) Baso % (Auto) (0.1-1.2) % Neut # (Auto) (1.56-6.13) K/mm3 Lymph # (Auto) (1.18-3.74) K/mm3 [place] # (Auto) (0.24-0.36) K/mm3 Eos # (Auto) (0.04-0.36) K/mm3 Baso # (Auto) (0.01-0.08) K/mm3 Manual Slide Review PT (9.7-12.0) SECONDS INR APTT (21.7-31.4) SECONDS D-Dimer, Quantitative (0.19-0.50) mg/L Sodium (136-145) mEq/L Potassium (3.5-5.1) mEq/L Chloride (98-107) mEq/L Carbon Dioxide (21-32) mEq/L Anion Gap (5-15) BUN (7-18) mg/dL Creatinine (0.55-1.02) mg/dL Est Cr Clr Drug Dosing mL/min Estimated GFR (MDRD) (>60) mL/min BUN/Creatinine Ratio (14-18) Glucose (83-115) mg/dL Lactic Acid (0.4-2.0) mmol/L Calcium (8.5-10.1) mg/dL Ferritin (8-252) ng/ml Total Bilirubin (0.2-1.0) mg/dL AST (15-37) U/L ALT (14-59) U/L Alkaline Phosphatase (46-116) U/L Lactate Dehydrogenase (81-234) U/L Troponin I < 0.017 (0.00-0.056) ng/mL C-Reactive Protein (<1.0) mg/dL NT-Pro-B Natriuret Pep 922 H (0-450) pg/mL Total Protein (6.4-8.2) g/dl Albumin (3.4-5.0) g/dl Globulin gm/dL Albumin/Globulin Ratio (1-2) Procalcitonin ng/mL TSH 3rd Generation (0.358-3.74) uIU/mL Urine Color Yellow (Yellow) Urine Appearance Clear (Clear) Urine pH 5.5 (5.0-8.0) Ur Specific Echo > or = 1.030 (1.005-1.030) Urine Protein 1+ H (Negative) Urine Glucose (UA) Negative (Negative) Urine Ketones Negative (Negative) Urine Occult Blood 2+ H (Negative) Urine Nitrite Negative (Negative) Urine Bilirubin Negative (Negative) Urine Urobilinogen 0.2 (0.2-1.0) Ur Leukocyte Esterase Negative (Negative) Urine RBC 10-20 H (0-5) /hpf Urine WBC 0-5 (0-5) /hpf Ur Squamous Epith Cells 0-5 (0-5) /hpf Urine Bacteria Moderate H (FEW) /hpf Urine Mucus Few (FEW) /hpf SARS-CoV-2 RNA ([place]) (NEGATIVE) MRSA (PCR) 12/24/20 12/24/20 12/24/20 Range/Units 10:45 17:30 18:55 WBC (3.98-10.04) K/mm3 RBC (3.98-5.22) M/mm3 Hgb (11.2-15.7) gm/dl Hct (34.1-44.9) % MCV (79.4-94.8) fl MCH (25.6-32.2) pg MCHC (32.2-35.5) g/dl RDW Std Deviation (36.4-46.3) fL Plt Count (182-369) K/mm3 MPV (9.4-12.3) fl Neut % (Auto) (34.0-71.1) % Lymph % (Auto) (19.3-51.7) % [place] % (Auto) (4.7-12.5) % Eos % (Auto) (0.7-5.8) Baso % (Auto) (0.1-1.2) % Neut # (Auto) (1.56-6.13) K/mm3 Lymph # (Auto) (1.18-3.74) K/mm3 [place] # (Auto) (0.24-0.36) K/mm3 Eos # (Auto) (0.04-0.36) K/mm3 Baso # (Auto) (0.01-0.08) K/mm3 Manual Slide Review PT (9.7-12.0) SECONDS INR APTT 109.1 H* D (21.7-31.4) SECONDS D-Dimer, Quantitative (0.19-0.50) mg/L Sodium (136-145) mEq/L Potassium (3.5-5.1) mEq/L Chloride (98-107) mEq/L Carbon Dioxide (21-32) mEq/L Anion Gap (5-15) BUN (7-18) mg/dL Creatinine (0.55-1.02) mg/dL Est Cr Clr Drug Dosing mL/min Estimated GFR (MDRD) (>60) mL/min BUN/Creatinine Ratio (14-18) Glucose (83-115) mg/dL Lactic Acid (0.4-2.0) mmol/L Calcium (8.5-10.1) mg/dL Ferritin (8-252) ng/ml Total Bilirubin (0.2-1.0) mg/dL AST (15-37) U/L ALT (14-59) U/L Alkaline Phosphatase (46-116) U/L Lactate Dehydrogenase (81-234) U/L Troponin I (0.00-0.056) ng/mL C-Reactive Protein (<1.0) mg/dL NT-Pro-B Natriuret Pep (0-450) pg/mL Total Protein (6.4-8.2) g/dl Albumin (3.4-5.0) g/dl Globulin gm/dL Albumin/Globulin Ratio (1-2) Procalcitonin ng/mL TSH 3rd Generation 0.825 (0.358-3.74) uIU/mL Urine Color (Yellow) Urine Appearance (Clear) Urine pH (5.0-8.0) Ur Specific Echo (1.005-1.030) Urine Protein (Negative) Urine Glucose (UA) (Negative) Urine Ketones (Negative) Urine Occult Blood (Negative) Urine Nitrite (Negative) Urine Bilirubin (Negative) Urine Urobilinogen (0.2-1.0) Ur Leukocyte Esterase (Negative) Urine RBC (0-5) /hpf Urine WBC (0-5) /hpf Ur Squamous Epith Cells (0-5) /hpf Urine Bacteria (FEW) /hpf Urine Mucus (FEW) /hpf SARS-CoV-2 RNA ([place]) (NEGATIVE) MRSA (PCR) Negative 12/25/20 12/25/20 Range/Units 00:53 05:53 WBC 7.01 (3.98-10.04) K/mm3 RBC 4.15 (3.98-5.22) M/mm3 Hgb 12.5 (11.2-15.7) gm/dl Hct 39.2 (34.1-44.9) % MCV 94.5 (79.4-94.8) fl MCH 30.1 (25.6-32.2) pg MCHC 31.9 L (32.2-35.5) g/dl RDW Std Deviation 42.9 (36.4-46.3) fL Plt Count 223 (182-369) K/mm3 MPV 9.8 (9.4-12.3) fl Neut % (Auto) 52.4 (34.0-71.1) % Lymph % (Auto) 22.3 (19.3-51.7) % [place] % (Auto) 17.1 H (4.7-12.5) % Eos % (Auto) 7.3 H (0.7-5.8) Baso % (Auto) 0.6 (0.1-1.2) % Neut # (Auto) 3.68 (1.56-6.13) K/mm3 Lymph # (Auto) 1.56 (1.18-3.74) K/mm3 [place] # (Auto) 1.20 H (0.24-0.36) K/mm3 Eos # (Auto) 0.51 H (0.04-0.36) K/mm3 Baso # (Auto) 0.04 (0.01-0.08) K/mm3 Manual Slide Review PT (9.7-12.0) SECONDS INR APTT 114.8 H* (21.7-31.4) SECONDS D-Dimer, Quantitative (0.19-0.50) mg/L Sodium (136-145) mEq/L Potassium (3.5-5.1) mEq/L Chloride (98-107) mEq/L Carbon Dioxide (21-32) mEq/L Anion Gap (5-15) BUN (7-18) mg/dL Creatinine (0.55-1.02) mg/dL Est Cr Clr Drug Dosing mL/min Estimated GFR (MDRD) (>60) mL/min BUN/Creatinine Ratio (14-18) Glucose (83-115) mg/dL Lactic Acid (0.4-2.0) mmol/L Calcium (8.5-10.1) mg/dL Ferritin (8-252) ng/ml Total Bilirubin (0.2-1.0) mg/dL AST (15-37) U/L ALT (14-59) U/L Alkaline Phosphatase (46-116) U/L Lactate Dehydrogenase (81-234) U/L Troponin I (0.00-0.056) ng/mL C-Reactive Protein (<1.0) mg/dL NT-Pro-B Natriuret Pep (0-450) pg/mL Total Protein (6.4-8.2) g/dl Albumin (3.4-5.0) g/dl Globulin gm/dL Albumin/Globulin Ratio (1-2) Procalcitonin ng/mL TSH 3rd Generation (0.358-3.74) uIU/mL Urine Color (Yellow) Urine Appearance (Clear) Urine pH (5.0-8.0) Ur Specific Echo (1.005-1.030) Urine Protein (Negative) Urine Glucose (UA) (Negative) Urine Ketones (Negative) Urine Occult Blood (Negative) Urine Nitrite (Negative) Urine Bilirubin (Negative) Urine Urobilinogen (0.2-1.0) Ur Leukocyte Esterase (Negative) Urine RBC (0-5) /hpf Urine WBC (0-5) /hpf Ur Squamous Epith Cells (0-5) /hpf Urine Bacteria (FEW) /hpf Urine Mucus (FEW) /hpf SARS-CoV-2 RNA ([place]) (NEGATIVE) MRSA (PCR) Med Orders - Current: Current Medications Acetaminophen (Tylenol) 650 mg PO Q4H PRN PRN Reason: Pain (Mild 1-3)/fever Acetaminophen (Tylenol) 650 mg PO Q12HR [facility] Last Admin: 12/24/20 21:51 Dose: 650 mg Documented by: Al Hydroxide/Mg Hydroxide (Mag-Al Plus) 30 ml PO Q4H PRN PRN Reason: Indigestion Atorvastatin Calcium (Lipitor) 20 mg PO BEDTIME [facility] Last Admin: 12/24/20 21:51 Dose: 20 mg Documented by: Calcium Carbonate/Glycine (Tums) 500 mg PO Q4H PRN PRN Reason: INDIGESTION/HEARTBURN Docusate Sodium (Colace) 100 mg PO BID PRN PRN Reason: Constipation Donepezil HCl (Aricept) 10 mg PO BEDTIME [facility] Last Admin: 12/24/20 21:51 Dose: 10 mg Documented by: Sodium Chloride (Normal Saline) 100 mls @ 60 mls/hr IV ASDIRECTED [facility] Last Admin: 12/24/20 10:38 Dose: 60 mls/hr Documented by: Heparin Sodium/Dextrose (Heparin 25,000 Units In D5w 500 Ml) 25,000 units in 500 mls @ 23.743 mls/hr IV TITRATE ROSANGELA; Protocol Last Titration: 12/25/20 02:41 Dose: 12 units/kg/hr, 15.828 mls/hr Documented by: Isosorbide Mononitrate (Imdur) 30 mg PO DAILY [facility] Levetiracetam (Keppra) 250 mg PO BID [facility] Last Admin: 12/24/20 21:52 Dose: 250 mg Documented by: Levothyroxine Sodium (Levothyroxine) 25 mcg PO ACBREAKFAST [facility] Last Admin: 12/25/20 05:56 Dose: 25 mcg Documented by: Lisinopril (Prinivil) 5 mg PO DAILY [facility] Magnesium Hydroxide (Milk Of Magnesia) 30 ml PO TID PRN PRN Reason: Constipation Nitroglycerin (Nitrostat) 0.4 mg SL ASDIRECTED PRN PRN Reason: Chest Pain Non-Formulary Medication (Ketotifen Fumarate) 1 drop OP BID PRN PRN Reason: Dry Eyes Ondansetron HCl (Zofran) 4 mg IV Q6H PRN PRN Reason: Nausea/Vomiting Sertraline HCl (Zoloft) 50 mg PO DAILY ROSANGELA Sodium Chloride (Saline Flush) 10 ml FLUSH ASDIRECTED PRN PRN Reason: Keep Vein Open Last Admin: 12/24/20 10:38 Dose: 10 ml Documented by: Discontinued Medications Heparin Sodium (Porcine) (Heparin Sodium) 5,200 units IVPUSH .BOLUS ONE Stop: 12/24/20 11:14 Last Admin: 12/24/20 11:31 Dose: 5,200 units Documented by: Heparin Sodium (Porcine) (Heparin Sodium) 5,200 units IVPUSH .BOLUS ONE Stop: 12/24/20 11:14 Last Admin: 12/24/20 11:36 Dose: Not Given Documented by: Sodium Chloride (Normal Saline) 500 mls @ 999 mls/hr IV .BOLUS ONE Stop: 12/24/20 09:06 Last Admin: 12/24/20 09:06 Dose: 999 mls/hr Documented by: Iopamidol (Isovue-370 (76%)) 100 ml IVPUSH ONETIME ONE Stop: 12/24/20 10:16 Last Admin: 12/24/20 10:38 Dose: 100 ml Documented by: Non-Formulary Medication (Acetaminophen) 500 mg PO Q4HR PRN PRN Reason: Pain Non-Formulary Medication (Dextromethorphan Hb/Doxylamine [Safetussin Pm]) 2 tsp PO Q12HR PRN PRN Reason: Cough Non-Formulary Medication (Dupilumab [Dupixent Syringe]) 300 mg SQ ASDIRECTED ROSANGELA Non-Formulary Medication (Menthol [Biofreeze]) 1 applic TP BID PRN PRN Reason: Rash Sodium Chloride (Saline Flush) 10 ml FLUSH ONETIME ONE Stop: 12/24/20 10:16 Last Admin: 12/24/20 11:39 Dose: 10 ml Documented by: - Exam Quality Assessment: Supplemental Oxygen (3L), DVT Prophylaxis. No: Urine Catheter General: Alert, Cooperative (Mostly), No Acute Distress. No: Oriented HEENT: Pupils Equal, Pupils Reactive, Mucous Membr. Moist/[place] Neck: Supple, Trachea Midline Lungs: Normal Respiratory Effort, Decreased Breath Sounds, Crackles Cardiovascular: Regular Rate, Regular Rhythm GI/Abdominal Exam: Normal Bowel Sounds, Soft, Non-Tender, No Distention (Female) Exam: Deferred Back Exam: Normal Inspection, Decreased Range of Motion Extremities: Normal Inspection, Normal Range of Motion, Non-Tender, No Pedal Edema, Normal Capillary Refill Skin: Warm, Dry, Intact Neurological: No New Focal Deficit Psy/Mental Status: Alert - Patient Data Lab Results Last 24 hrs: Laboratory Results - last 24 hr 12/24/20 12/24/20 12/24/20 Range/Units 08:51 09:05 09:05 WBC (3.98-10.04) K/mm3 RBC (3.98-5.22) M/mm3 Hgb (11.2-15.7) gm/dl Hct (34.1-44.9) % MCV (79.4-94.8) fl MCH (25.6-32.2) pg MCHC (32.2-35.5) g/dl RDW Std Deviation (36.4-46.3) fL Plt Count (182-369) K/mm3 MPV (9.4-12.3) fl Neut % (Auto) (34.0-71.1) % Lymph % (Auto) (19.3-51.7) % [place] % (Auto) (4.7-12.5) % Eos % (Auto) (0.7-5.8) Baso % (Auto) (0.1-1.2) % Neut # (Auto) (1.56-6.13) K/mm3 Lymph # (Auto) (1.18-3.74) K/mm3 [place] # (Auto) (0.24-0.36) K/mm3 Eos # (Auto) (0.04-0.36) K/mm3 Baso # (Auto) (0.01-0.08) K/mm3 Manual Slide Review PT (9.7-12.0) SECONDS INR APTT 26.2 (21.7-31.4) SECONDS D-Dimer, Quantitative (0.19-0.50) mg/L Sodium (136-145) mEq/L Potassium (3.5-5.1) mEq/L Chloride (98-107) mEq/L Carbon Dioxide (21-32) mEq/L Anion Gap (5-15) BUN (7-18) mg/dL Creatinine (0.55-1.02) mg/dL Est Cr Clr Drug Dosing mL/min Estimated GFR (MDRD) (>60) mL/min BUN/Creatinine Ratio (14-18) Glucose (83-115) mg/dL Lactic Acid (0.4-2.0) mmol/L Calcium (8.5-10.1) mg/dL Ferritin 173 (8-252) ng/ml Total Bilirubin (0.2-1.0) mg/dL AST (15-37) U/L ALT (14-59) U/L Alkaline Phosphatase (46-116) U/L Lactate Dehydrogenase (81-234) U/L Troponin I (0.00-0.056) ng/mL C-Reactive Protein (<1.0) mg/dL NT-Pro-B Natriuret Pep (0-450) pg/mL Total Protein (6.4-8.2) g/dl Albumin (3.4-5.0) g/dl Globulin gm/dL Albumin/Globulin Ratio (1-2) Procalcitonin ng/mL TSH 3rd Generation (0.358-3.74) uIU/mL Urine Color (Yellow) Urine Appearance (Clear) Urine pH (5.0-8.0) Ur Specific Echo (1.005-1.030) Urine Protein (Negative) Urine Glucose (UA) (Negative) Urine Ketones (Negative) Urine Occult Blood (Negative) Urine Nitrite (Negative) Urine Bilirubin (Negative) Urine Urobilinogen (0.2-1.0) Ur Leukocyte Esterase (Negative) Urine RBC (0-5) /hpf Urine WBC (0-5) /hpf Ur Squamous Epith Cells (0-5) /hpf Urine Bacteria (FEW) /hpf Urine Mucus (FEW) /hpf SARS-CoV-2 RNA ([place]) Negative (NEGATIVE) MRSA (PCR) 12/24/20 12/24/20 12/24/20 Range/Units 09:05 09:05 09:05 WBC 10.23 H (3.98-10.04) K/mm3 RBC 4.12 (3.98-5.22) M/mm3 Hgb 12.5 (11.2-15.7) gm/dl Hct 38.4 (34.1-44.9) % MCV 93.2 (79.4-94.8) fl MCH 30.3 (25.6-32.2) pg MCHC 32.6 (32.2-35.5) g/dl RDW Std Deviation 41.9 (36.4-46.3) fL Plt Count 221 (182-369) K/mm3 MPV 9.9 (9.4-12.3) fl Neut % (Auto) 79.0 H (34.0-71.1) % Lymph % (Auto) 6.7 L (19.3-51.7) % [place] % (Auto) 11.5 (4.7-12.5) % Eos % (Auto) 2.2 (0.7-5.8) Baso % (Auto) 0.3 (0.1-1.2) % Neut # (Auto) 8.08 H (1.56-6.13) K/mm3 Lymph # (Auto) 0.69 L (1.18-3.74) K/mm3 [place] # (Auto) 1.18 H (0.24-0.36) K/mm3 Eos # (Auto) 0.22 (0.04-0.36) K/mm3 Baso # (Auto) 0.03 (0.01-0.08) K/mm3 Manual Slide Review Normal smear PT (9.7-12.0) SECONDS INR APTT (21.7-31.4) SECONDS D-Dimer, Quantitative 3.69 H (0.19-0.50) mg/L Sodium 140 (136-145) mEq/L Potassium 3.9 (3.5-5.1) mEq/L Chloride 103 (98-107) mEq/L Carbon Dioxide 26 (21-32) mEq/L Anion Gap 14.9 (5-15) BUN 17 (7-18) mg/dL Creatinine 0.7 (0.55-1.02) mg/dL Est Cr Clr Drug Dosing 45.63 mL/min Estimated GFR (MDRD) > 60 (>60) mL/min BUN/Creatinine Ratio 24.3 H (14-18) Glucose 87 (83-115) mg/dL Lactic Acid (0.4-2.0) mmol/L Calcium 9.1 (8.5-10.1) mg/dL Ferritin (8-252) ng/ml Total Bilirubin 0.5 (0.2-1.0) mg/dL AST 22 (15-37) U/L ALT 26 (14-59) U/L Alkaline Phosphatase 79 (46-116) U/L Lactate Dehydrogenase 244 H (81-234) U/L Troponin I (0.00-0.056) ng/mL C-Reactive Protein 11.3 H* (<1.0) mg/dL NT-Pro-B Natriuret Pep (0-450) pg/mL Total Protein 7.1 (6.4-8.2) g/dl Albumin 3.3 L (3.4-5.0) g/dl Globulin 3.8 gm/dL Albumin/Globulin Ratio 0.9 L (1-2) Procalcitonin ng/mL TSH 3rd Generation (0.358-3.74) uIU/mL Urine Color (Yellow) Urine Appearance (Clear) Urine pH (5.0-8.0) Ur Specific Echo (1.005-1.030) Urine Protein (Negative) Urine Glucose (UA) (Negative) Urine Ketones (Negative) Urine Occult Blood (Negative) Urine Nitrite (Negative) Urine Bilirubin (Negative) Urine Urobilinogen (0.2-1.0) Ur Leukocyte Esterase (Negative) Urine RBC (0-5) /hpf Urine WBC (0-5) /hpf Ur Squamous Epith Cells (0-5) /hpf Urine Bacteria (FEW) /hpf Urine Mucus (FEW) /hpf SARS-CoV-2 RNA ([place]) (NEGATIVE) MRSA (PCR) 12/24/20 12/24/20 12/24/20 Range/Units 09:05 09:05 09:05 WBC (3.98-10.04) K/mm3 RBC (3.98-5.22) M/mm3 Hgb (11.2-15.7) gm/dl Hct (34.1-44.9) % MCV (79.4-94.8) fl MCH (25.6-32.2) pg MCHC (32.2-35.5) g/dl RDW Std Deviation (36.4-46.3) fL Plt Count (182-369) K/mm3 MPV (9.4-12.3) fl Neut % (Auto) (34.0-71.1) % Lymph % (Auto) (19.3-51.7) % [place] % (Auto) (4.7-12.5) % Eos % (Auto) (0.7-5.8) Baso % (Auto) (0.1-1.2) % Neut # (Auto) (1.56-6.13) K/mm3 Lymph # (Auto) (1.18-3.74) K/mm3 [place] # (Auto) (0.24-0.36) K/mm3 Eos # (Auto) (0.04-0.36) K/mm3 Baso # (Auto) (0.01-0.08) K/mm3 Manual Slide Review PT 11.3 (9.7-12.0) SECONDS INR 1.06 APTT (21.7-31.4) SECONDS D-Dimer, Quantitative (0.19-0.50) mg/L Sodium (136-145) mEq/L Potassium (3.5-5.1) mEq/L Chloride (98-107) mEq/L Carbon Dioxide (21-32) mEq/L Anion Gap (5-15) BUN (7-18) mg/dL Creatinine (0.55-1.02) mg/dL Est Cr Clr Drug Dosing mL/min Estimated GFR (MDRD) (>60) mL/min BUN/Creatinine Ratio (14-18) Glucose (83-115) mg/dL Lactic Acid 0.9 (0.4-2.0) mmol/L Calcium (8.5-10.1) mg/dL Ferritin (8-252) ng/ml Total Bilirubin (0.2-1.0) mg/dL AST (15-37) U/L ALT (14-59) U/L Alkaline Phosphatase (46-116) U/L Lactate Dehydrogenase (81-234) U/L Troponin I (0.00-0.056) ng/mL C-Reactive Protein (<1.0) mg/dL NT-Pro-B Natriuret Pep (0-450) pg/mL Total Protein (6.4-8.2) g/dl Albumin (3.4-5.0) g/dl Globulin gm/dL Albumin/Globulin Ratio (1-2) Procalcitonin 0.07 ng/mL TSH 3rd Generation (0.358-3.74) uIU/mL Urine Color (Yellow) Urine Appearance (Clear) Urine pH (5.0-8.0) Ur Specific Echo (1.005-1.030) Urine Protein (Negative) Urine Glucose (UA) (Negative) Urine Ketones (Negative) Urine Occult Blood (Negative) Urine Nitrite (Negative) Urine Bilirubin (Negative) Urine Urobilinogen (0.2-1.0) Ur Leukocyte Esterase (Negative) Urine RBC (0-5) /hpf Urine WBC (0-5) /hpf Ur Squamous Epith Cells (0-5) /hpf Urine Bacteria (FEW) /hpf Urine Mucus (FEW) /hpf SARS-CoV-2 RNA ([facility]) (NEGATIVE) MRSA (PCR) 12/24/20 12/24/20 12/24/20 Range/Units 09:43 10:45 10:45 WBC (3.98-10.04) K/mm3 RBC (3.98-5.22) M/mm3 Hgb (11.2-15.7) gm/dl Hct (34.1-44.9) % MCV (79.4-94.8) fl MCH (25.6-32.2) pg MCHC (32.2-35.5) g/dl RDW Std Deviation (36.4-46.3) fL Plt Count (182-369) K/mm3 MPV (9.4-12.3) fl Neut % (Auto) (34.0-71.1) % Lymph % (Auto) (19.3-51.7) % Zavala % (Auto) (4.7-12.5) % Eos % (Auto) (0.7-5.8) Baso % (Auto) (0.1-1.2) % Neut # (Auto) (1.56-6.13) K/mm3 Lymph # (Auto) (1.18-3.74) K/mm3 Zavala # (Auto) (0.24-0.36) K/mm3 Eos # (Auto) (0.04-0.36) K/mm3 Baso # (Auto) (0.01-0.08) K/mm3 Manual Slide Review PT (9.7-12.0) SECONDS INR APTT (21.7-31.4) SECONDS D-Dimer, Quantitative (0.19-0.50) mg/L Sodium (136-145) mEq/L Potassium (3.5-5.1) mEq/L Chloride (98-107) mEq/L Carbon Dioxide (21-32) mEq/L Anion Gap (5-15) BUN (7-18) mg/dL Creatinine (0.55-1.02) mg/dL Est Cr Clr Drug Dosing mL/min Estimated GFR (MDRD) (>60) mL/min BUN/Creatinine Ratio (14-18) Glucose (83-115) mg/dL Lactic Acid (0.4-2.0) mmol/L Calcium (8.5-10.1) mg/dL Ferritin (8-252) ng/ml Total Bilirubin (0.2-1.0) mg/dL AST (15-37) U/L ALT (14-59) U/L Alkaline Phosphatase (46-116) U/L Lactate Dehydrogenase (81-234) U/L Troponin I < 0.017 (0.00-0.056) ng/mL C-Reactive Protein (<1.0) mg/dL NT-Pro-B Natriuret Pep 922 H (0-450) pg/mL Total Protein (6.4-8.2) g/dl Albumin (3.4-5.0) g/dl Globulin gm/dL Albumin/Globulin Ratio (1-2) Procalcitonin ng/mL TSH 3rd Generation (0.358-3.74) uIU/mL Urine Color Yellow (Yellow) Urine Appearance Clear (Clear) Urine pH 5.5 (5.0-8.0) Ur Specific Echo > or = 1.030 (1.005-1.030) Urine Protein 1+ H (Negative) Urine Glucose (UA) Negative (Negative) Urine Ketones Negative (Negative) Urine Occult Blood 2+ H (Negative) Urine Nitrite Negative (Negative) Urine Bilirubin Negative (Negative) Urine Urobilinogen 0.2 (0.2-1.0) Ur Leukocyte Esterase Negative (Negative) Urine RBC 10-20 H (0-5) /hpf Urine WBC 0-5 (0-5) /hpf Ur Squamous Epith Cells 0-5 (0-5) /hpf Urine Bacteria Moderate H (FEW) /hpf Urine Mucus Few (FEW) /hpf SARS-CoV-2 RNA ([facility]) (NEGATIVE) MRSA (PCR) 12/24/20 12/24/20 12/24/20 Range/Units 10:45 17:30 18:55 WBC (3.98-10.04) K/mm3 RBC (3.98-5.22) M/mm3 Hgb (11.2-15.7) gm/dl Hct (34.1-44.9) % MCV (79.4-94.8) fl MCH (25.6-32.2) pg MCHC (32.2-35.5) g/dl RDW Std Deviation (36.4-46.3) fL Plt Count (182-369) K/mm3 MPV (9.4-12.3) fl Neut % (Auto) (34.0-71.1) % Lymph % (Auto) (19.3-51.7) % Zavala % (Auto) (4.7-12.5) % Eos % (Auto) (0.7-5.8) Baso % (Auto) (0.1-1.2) % Neut # (Auto) (1.56-6.13) K/mm3 Lymph # (Auto) (1.18-3.74) K/mm3 Zavala # (Auto) (0.24-0.36) K/mm3 Eos # (Auto) (0.04-0.36) K/mm3 Baso # (Auto) (0.01-0.08) K/mm3 Manual Slide Review PT (9.7-12.0) SECONDS INR APTT 109.1 H* D (21.7-31.4) SECONDS D-Dimer, Quantitative (0.19-0.50) mg/L Sodium (136-145) mEq/L Potassium (3.5-5.1) mEq/L Chloride (98-107) mEq/L Carbon Dioxide (21-32) mEq/L Anion Gap (5-15) BUN (7-18) mg/dL Creatinine (0.55-1.02) mg/dL Est Cr Clr Drug Dosing mL/min Estimated GFR (MDRD) (>60) mL/min BUN/Creatinine Ratio (14-18) Glucose (83-115) mg/dL Lactic Acid (0.4-2.0) mmol/L Calcium (8.5-10.1) mg/dL Ferritin (8-252) ng/ml Total Bilirubin (0.2-1.0) mg/dL AST (15-37) U/L ALT (14-59) U/L Alkaline Phosphatase (46-116) U/L Lactate Dehydrogenase (81-234) U/L Troponin I (0.00-0.056) ng/mL C-Reactive Protein (<1.0) mg/dL NT-Pro-B Natriuret Pep (0-450) pg/mL Total Protein (6.4-8.2) g/dl Albumin (3.4-5.0) g/dl Globulin gm/dL Albumin/Globulin Ratio (1-2) Procalcitonin ng/mL TSH 3rd Generation 0.825 (0.358-3.74) uIU/mL Urine Color (Yellow) Urine Appearance (Clear) Urine pH (5.0-8.0) Ur Specific Echo (1.005-1.030) Urine Protein (Negative) Urine Glucose (UA) (Negative) Urine Ketones (Negative) Urine Occult Blood (Negative) Urine Nitrite (Negative) Urine Bilirubin (Negative) Urine Urobilinogen (0.2-1.0) Ur Leukocyte Esterase (Negative) Urine RBC (0-5) /hpf Urine WBC (0-5) /hpf Ur Squamous Epith Cells (0-5) /hpf Urine Bacteria (FEW) /hpf Urine Mucus (FEW) /hpf SARS-CoV-2 RNA ([facility]) (NEGATIVE) MRSA (PCR) Negative 12/25/20 12/25/20 Range/Units 00:53 05:53 WBC 7.01 (3.98-10.04) K/mm3 RBC 4.15 (3.98-5.22) M/mm3 Hgb 12.5 (11.2-15.7) gm/dl Hct 39.2 (34.1-44.9) % MCV 94.5 (79.4-94.8) fl MCH 30.1 (25.6-32.2) pg MCHC 31.9 L (32.2-35.5) g/dl RDW Std Deviation 42.9 (36.4-46.3) fL Plt Count 223 (182-369) K/mm3 MPV 9.8 (9.4-12.3) fl Neut % (Auto) 52.4 (34.0-71.1) % Lymph % (Auto) 22.3 (19.3-51.7) % Zavala % (Auto) 17.1 H (4.7-12.5) % Eos % (Auto) 7.3 H (0.7-5.8) Baso % (Auto) 0.6 (0.1-1.2) % Neut # (Auto) 3.68 (1.56-6.13) K/mm3 Lymph # (Auto) 1.56 (1.18-3.74) K/mm3 [place] # (Auto) 1.20 H (0.24-0.36) K/mm3 Eos # (Auto) 0.51 H (0.04-0.36) K/mm3 Baso # (Auto) 0.04 (0.01-0.08) K/mm3 Manual Slide Review PT (9.7-12.0) SECONDS INR APTT 114.8 H* (21.7-31.4) SECONDS D-Dimer, Quantitative (0.19-0.50) mg/L Sodium (136-145) mEq/L Potassium (3.5-5.1) mEq/L Chloride (98-107) mEq/L Carbon Dioxide (21-32) mEq/L Anion Gap (5-15) BUN (7-18) mg/dL Creatinine (0.55-1.02) mg/dL Est Cr Clr Drug Dosing mL/min Estimated GFR (MDRD) (>60) mL/min BUN/Creatinine Ratio (14-18) Glucose (83-115) mg/dL Lactic Acid (0.4-2.0) mmol/L Calcium (8.5-10.1) mg/dL Ferritin (8-252) ng/ml Total Bilirubin (0.2-1.0) mg/dL AST (15-37) U/L ALT (14-59) U/L Alkaline Phosphatase (46-116) U/L Lactate Dehydrogenase (81-234) U/L Troponin I (0.00-0.056) ng/mL C-Reactive Protein (<1.0) mg/dL NT-Pro-B Natriuret Pep (0-450) pg/mL Total Protein (6.4-8.2) g/dl Albumin (3.4-5.0) g/dl Globulin gm/dL Albumin/Globulin Ratio (1-2) Procalcitonin ng/mL TSH 3rd Generation (0.358-3.74) uIU/mL Urine Color (Yellow) Urine Appearance (Clear) Urine pH (5.0-8.0) Ur Specific Echo (1.005-1.030) Urine Protein (Negative) Urine Glucose (UA) (Negative) Urine Ketones (Negative) Urine Occult Blood (Negative) Urine Nitrite (Negative) Urine Bilirubin (Negative) Urine Urobilinogen (0.2-1.0) Ur Leukocyte Esterase (Negative) Urine RBC (0-5) /hpf Urine WBC (0-5) /hpf Ur Squamous Epith Cells (0-5) /hpf Urine Bacteria (FEW) /hpf Urine Mucus (FEW) /hpf SARS-CoV-2 RNA ([facility]) (NEGATIVE) MRSA (PCR) Result Diagrams: 12/25/20 05:53 12/25/20 05:53 Sepsis Event Note - Evaluation Sepsis Screening Result: No Definite Risk - Focused Exam Vital Signs: Vital Signs Temp Pulse Resp BP Pulse Ox Pulse Ox 12/25/20 06:32 95 12/25/20 04:00 98 F 18 152/106 H 92 L 12/25/20 00:00 97.9 F 20 119/88 96 12/24/20 20:00 97.8 F 67 20 136/120 H 95 12/24/20 19:53 95 - Problem List & Annotations (1) HLD (hyperlipidemia) SNOMED Code(s): 16401862 Code(s): E78.5 - HYPERLIPIDEMIA, UNSPECIFIED Status: Chronic Priority: Low Current Visit: No Qualifiers: Hyperlipidemia type: unspecified Qualified Code(s): E78.5 - Hyperlipidemia, unspecified (2) HTN (hypertension) SNOMED Code(s): 75781047 Code(s): I10 - ESSENTIAL (PRIMARY) HYPERTENSION Status: Chronic Priority: Medium Current Visit: No Qualifiers: Hypertension type: unspecified Qualified Code(s): I10 - Essential (primary) hypertension (3) GERD (gastroesophageal reflux disease) SNOMED Code(s): 958162796 Code(s): K21.9 - GASTRO-ESOPHAGEAL REFLUX DISEASE WITHOUT ESOPHAGITIS Status: Chronic Priority: Low Current Visit: No Qualifiers: Esophagitis presence: esophagitis presence not specified Qualified Code(s): K21.9 - Gastro-esophageal reflux disease without esophagitis (4) Alzheimers disease SNOMED Code(s): 34541888 Code(s): G30.9 - ALZHEIMER'S DISEASE, UNSPECIFIED; F02.80 - DEMENTIA IN OTH DISEASES CLASSD ELSWHR W/O BEHAVRL DISTURB Status: Chronic Priority: Medium Current Visit: No (5) Depression SNOMED Code(s): 92308679 Code(s): F32.9 - MAJOR DEPRESSIVE DISORDER, SINGLE EPISODE, UNSPECIFIED Status: Chronic Priority: Low Current Visit: No Qualifiers: Depression Type: other depression Qualified Code(s): F32.89 - Other specified depressive episodes (6) Hypothyroidism SNOMED Code(s): 97819534 Code(s): E03.9 - HYPOTHYROIDISM, UNSPECIFIED Status: Chronic Priority: Medium Current Visit: No Qualifiers: Hypothyroidism type: unspecified Qualified Code(s): E03.9 - Hypothyroidism, unspecified (7) History of bladder cancer SNOMED Code(s): 168726969, 079740082 Code(s): Z85.51 - PERSONAL HISTORY OF MALIGNANT NEOPLASM OF BLADDER Status: Chronic Priority: Low Current Visit: No (8) Pulmonary emboli SNOMED Code(s): 49086731 Code(s): I26.99 - OTHER PULMONARY EMBOLISM WITHOUT ACUTE COR PULMONALE Status: Acute Priority: High Current Visit: Yes Qualifiers: Pulmonary embolism type: saddle Chronicity: acute Acute cor pulmonale presence: unspecified Qualified Code(s): I26.92 - Saddle embolus of pulmonary artery without acute cor pulmonale (9) Seizure disorder SNOMED Code(s): 084677917 Code(s): G40.909 - EPILEPSY, UNSP, NOT INTRACTABLE, WITHOUT STATUS EPILEPTICUS Status: Chronic Priority: Low Current Visit: No (10) Hypoxia SNOMED Code(s): 515576836 Code(s): R09.02 - HYPOXEMIA Status: Acute Priority: High Current Visit: Yes - Problem List Review Problem List Initiated/Reviewed/Updated: Yes - My Orders Last 24 Hours: My Active Orders 12/24/20 09:05 LEVETIRACETAM, S [REF] Routine 12/24/20 Lunch Regular Diet [DIET] 12/24/20 12:20 Cardiac Monitoring [RC] CONTINUOUS Intake and Output [RC] 04,16 Oxygen Therapy [RC] PRN Pulse Oximetry [RC] PRN Up With Assistance [RC] ASDIRECTED VTE/DVT Education [RC] BID Vital Signs [RC] Q4HR Consult to Case Management/Energy Sales Consultant [CONS] Routine Acetaminophen [TylenoL] 650 mg PO Q4H PRN Docusate Sodium [Colace] 100 mg PO BID PRN Ondansetron [Zofran] 4 mg IV Q6H PRN Resuscitation Status Routine 12/24/20 12:23 Echo Comp wo Cont [US] Routine 12/24/20 12:24 Venous Doppler Lwr Ext Bi [US] Routine 12/24/20 13:27 Let Patient Sleep Protocol [RC] BEDTIME Seizure Precautions [OM.PC] Routine 12/24/20 13:40 Precautions [COMM] Routine 12/25/20 05:53 CBC WITH AUTO DIFF [HEME] AM CMP [COMPREHENSIVE METABOLIC PN,CMP] [CHEM] AM MAGNESIUM [CHEM] AM 12/26/20 05:11 CBC WITH AUTO DIFF [HEME] AM CMP [COMPREHENSIVE METABOLIC PN,CMP] [CHEM] AM MAGNESIUM [CHEM] AM 12/27/20 05:11 CBC WITH AUTO DIFF [HEME] AM CMP [COMPREHENSIVE METABOLIC PN,CMP] [CHEM] AM MAGNESIUM [CHEM] AM 12/28/20 05:11 CBC WITH AUTO DIFF [HEME] AM CMP [COMPREHENSIVE METABOLIC PN,CMP] [CHEM] AM MAGNESIUM [CHEM] AM - Assessment Assessment:: Assessment - day of admission - 12/24/20 * 85-year-old female presents to our ED from [facility] due to worsening shortness of breath. * Requiring 2 L in the emergency room with no baseline oxygen need. 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 * Noted to have inspiratory crackles bilaterally and scattered rhonchi thro ughout. * EKG obtained in ED shows normal sinus rhythm at 67 bpm with no ischemia or signs of RV strain. * Labs obtained in ED: * WBC 10.23 * Hemoglobin 12.5 * Platelet 221 * Neutrophils elevated at 8.08 * Sodium 140 * Potassium 3.9 * Carbon dioxide 26 * Anion gap 14.9 * BUN 17, creatinine 0.7, GFR greater than 60 * Bilirubin 0.5 * AST 22, ALT 26, alkaline phosphatase 79 * CRP 11.3 * Albumin 3.3 * INR 1.06 * APTT 26.2 * Ferritin 173 * LDH 244 * Lactic acid 0.9 * UA negative but concentrated urine, 1+ protein, 2+ occult blood, 10-20 RBCs, and moderate bacteria are noted. * Troponin less than 0.017 * Procalcitonin is pending * D-Dimer 3.69 * Chest x-ray obtained and shows nothing acute * CT of the chest obtained and shows * 1. Small cell thrombus within the distal left main pulmonary artery exte nding into the left upper and left lower lobe arteries. No other findings of pulmonary embolism are seen. * 2. Single slightly enlarged lymph node within the pretracheal region measuring 2.2 cm. Given this is the only lymph no change, this is most likely benign. * 3. Other findings as noted above which are felt to be nonacute. * She is given a 1 L fluid bolus initially in the ED and after PE findings is given a 5200 unit heparin IV push bolus. * Started on a heparin drip per protocol. * Patient's power of patient account representative, Sister Tanya, contacted as transfer was recommended. They would like patient to stay in [place]. * DNR/DNI status confirmed. * She carries a history of HLD, HTN, GERD, Alzheimer's disease, seizure, dementia, depression, hypothyroidism, bladder cancer. * She is subsequent admitted to the ICU for management of her acute pulmonary embolus. 12/25/20 * Patient more confused today * Per nursing patient refused echo, low extremity ultrasound, and had been refusing to wear oxygen throughout the night. * Oxygen saturations noted to be mid to upper 80s while off oxygen. * Will reattempt echo and bilateral lower extremity ultrasound today. * Continue heparin drip per protocol * Continue to encourage patient to wear oxygen * Labs today: * WBC 7.01 * Hemoglobin 12.3 * Platelet 223 * Neutrophils 3.68 * APTT 109.1-->114.8 * Sodium 141 * Potassium 3.8 * BUN 19, Creatinine 0.8, GFR greater than 60. * Magnesium 1.9 * Albumin 2.9 * Procalcitonin obtained yesterday 0.07 * Pro-BNP obtained yesterday is 922 * Blood cultures remain negative * Continue current treatment plan. * Plan transition to oral anticoagulation once patient completes heparin therapy and echocardiogram/bilateral lower extremity ultrasound results are reviewed - Plan Plan:: Pulmonary emboli Hypoxia * Continue heparin drip per protocol * Repeat APTT per protocol. * Discuss blood thinner with patient POA once patient completes heparin protocol * Echo ordered * Bilateral lower extremity ultrasound to rule out DVT - ordered * Telemetry * Oxygen as needed * Monitor pulse oximetry * We will add PT/OT once patient is more stable * Case management/social group worker for discharge planning * Daily labs Seizure disorder * Check Keppra level * Continue home Keppra dosing * Seizure precautions Alzheimers disease * Home medications as ordered * Fall precautions * Let me sleep protocol HLD (hyperlipidemia) HTN (hypertension) GERD (gastroesophageal reflux disease) Depression Hypothyroidism History of bladder cancer * Review/reconcile home medications * Monitor labs and vital signs * No acute concerns Code status: DNR/DNI (Confirmed by ED provider with POA) PCP: Dr. 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 Transfer to [place] for higher level care was recommended at admission however patient's power of patient account representative refused. Length of stay likely 3 to 4 days.
[2020-12-25] MEDS: levETIRAcetam 500 MG Tab PO SCH ×2 (08:39→20:08)
[2020-12-25] MEDS: Sertraline 50 MG Tab PO SCH (08:40)
[2020-12-25] MEDS: Lisinopril 5 MG Tab PO SCH (08:40)
[2020-12-25] MEDS: Acetaminophen 325 MG Tab PO SCH ×2 (08:40→20:09)
[2020-12-25] MEDS: Isosorbide Mononitrate 30 MG Tab.ER PO SCH (08:41)
[2020-12-25] MEDS: Heparin Sodium/D5W 25,000 UNITS/500 ML BAG IV SCH (19:33)
[2020-12-25] MEDS: Donepezil 10 MG Tab PO SCH (20:08)
[2020-12-25] MEDS: atorvaSTATin 20 MG Tab PO SCH (20:09)
[2020-12-26] MEDS: Levothyroxine 25 MCG Tab PO SCH (05:46)
[2020-12-26] MEDS ORDERED: Heparin Sodium 5,000 Units/ML Vial IVPUSH ONE (07:14)
[2020-12-26] MEDS ORDERED: Apixaban 5 MG Tab PO SCH (09:00)
[2020-12-26] MEDS: Isosorbide Mononitrate 30 MG Tab.ER PO SCH (09:40)
[2020-12-26] MEDS: Sertraline 50 MG Tab PO SCH (09:40)
[2020-12-26] MEDS: levETIRAcetam 500 MG Tab PO SCH (09:44)
[2020-12-26] MEDS: Lisinopril 5 MG Tab PO SCH (09:45)
[2020-12-26 09:46] VITALS: BP 158/93
[2020-12-26] MEDS: Acetaminophen 325 MG Tab PO SCH (09:46)
--- NOTE | 2020-12-26 10:12 | US ---
Bilateral lower extremity deep venous ultrasound: Duplex and color Doppler evaluation was obtained of the right and left common femoral, proximal greater saphenous, superficial femoral, popliteal, posterior tibial and peroneal veins. Comparison: No prior venous imaging is available. Findings: Normal phasic flow, augmentation and compression is seen. Left peroneal vein was not well visualized. Impression: 1. No findings of deep venous thrombosis are seen within the right or left lower extremity. 2. Left peroneal vein was not well visualized. Diagnostic code #2
--- NOTE | 2020-12-26 12:10 | PCM.DCSUM1 ---
Discharge Summary - Hospital Course HPI Initial Comments: This is an 85-year-old female who presents to ED on 12/24/2020 via retrograde ambulance due to new onset shortness of breath, low O2 saturations, and crackles noted in her lungs. Per nurse report patient developed shortness of breath and crackles in her lungs the evening prior and has had increased weakness. Denies any recent fever, nausea, vomiting, or headache. Per nursing report from [facility] patient was given 1 nebulizer treatment yesterday evening which did not seem to help. She is requiring 2 L of oxygen via nasal cannula. In the ED twelve-lead EKG is obtained showing sinus rhythm at 6 7 bpm. There are no signs of any ischemia. No signs of RV strain. She is noted to be quite dry in the ED visually and does have inspiratory crackles bilaterally with scattered rhonchi throughout. She is given a 500 mL fluid bolus and labs were obtained. WB C is elevated at 10.23. Hemoglobin 10.5. Platelet 221,000. Neutrophils are elevated at 8.08. Normal smear noted. 140. Potassium 3.9. Carbon dioxide 26. Anion gap 14.9. 117. Creatinine 0.7. GFR greater than 60. Glucose is 87. Calcium is 9.1. Bilirubin 0.5. AST is 22, ALT 26, alkaline phosphatase 79. LDH is elevated to 44. CRP is 11.3. Albumin is 3.3. D-dimer is 0.69. INR is 1.06. aPTT is 26.2. Ferritin 173. Lactic acid 0.9. Procalcitonin is obtained and is pending. UA is obtained showing concentrated urine with 1+ protein, 2+ occult blood, 10-20 RBCs, no nitrite or leukocyte esterase. 0-5 WBCs. And moderate bacteria. Troponin is less than 0.017. Chest x-rays obtained showing chronic findings but nothing acute. Given the high D-dimer CT of the chest is obtained showing a small saddle thrombus within the distal left main pulmonary artery extending into the right upper and left lower lobe arteries. No other findings of pulmonary embolism are seen. Single slightly enlarged lymph node within the pretracheal region measuring 2.2 cm. Given this is the only lymph node change this is most likely benign. Other findings as noted above which are felt to be nonacute. She is given a 5200 unit IV push bolus of heparin and started on a heparin drip. CODE STATUS is confirmed and noted to be DNR/DNI. Patient's power of reagent tender helper, Sister Tanya, is contacted as discussion ensues on whether or not the patient should be transferred to [place]. PONicolas would like the patient to remain here in [place]. She carries a history of HLD, hypertension, GERD, Alzheimer's disease, seizure, depression, hypothyroidism, and bladder cancer. 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 Her PCP is Dr. Vega. She is subsequently admitted to the ICU for management of her saddle pulmonary embolus. Diagnosis: Stroke: No - Discharge Data Discharge Date: 12/26/20 (Admit date: 12/24/20) Discharge Disposition: DC/Tfer to [facility] 03 Condition: Good - Referral to [facility] Primary Care Physician: Dipesh Vega MD - Discharge Diagnosis/Problem(s) (1) HLD (hyperlipidemia) SNOMED Code(s): 24802582 ICD Code: E78.5 - HYPERLIPIDEMIA, UNSPECIFIED Status: Chronic Priority: Low Current Visit: No Qualifiers: Hyperlipidemia type: unspecified Qualified Code(s): E78.5 - Hyperlipidemia, unspecified (2) HTN (hypertension) SNOMED Code(s): 54114413 ICD Code: I10 - ESSENTIAL (PRIMARY) HYPERTENSION Status: Chronic Priority: Medium Current Visit: No Qualifiers: Hypertension type: unspecified Qualified Code(s): I10 - Essential (primary) hypertension (3) GERD (gastroesophageal reflux disease) SNOMED Code(s): 101605164 ICD Code: K21.9 - GASTRO-ESOPHAGEAL REFLUX DISEASE WITHOUT ESOPHAGITIS Status: Chronic Priority: Low Current Visit: No Qualifiers: Esophagitis presence: esophagitis presence not specified Qualified Code(s): K21.9 - Gastro-esophageal reflux disease without esophagitis (4) Alzheimers disease SNOMED Code(s): 64564169 ICD Code: G30.9 - ALZHEIMER'S DISEASE, UNSPECIFIED; F02.80 - DEMENTIA IN OTH DISEASES CLASSD ELSWHR W/O BEHAVRL DISTURB Status: Chronic Priority: Medium Current Visit: No (5) Depression SNOMED Code(s): 95807192 ICD Code: F32.9 - MAJOR DEPRESSIVE DISORDER, SINGLE EPISODE, UNSPECIFIED Status: Chronic Priority: Low Current Visit: No Qualifiers: Depression Type: other depression Qualified Code(s): F32.89 - Other specified depressive episodes (6) Hypothyroidism SNOMED Code(s): 29122197 ICD Code: E03.9 - HYPOTHYROIDISM, UNSPECIFIED Status: Chronic Priority: Medium Current Visit: No Qualifiers: Hypothyroidism type: unspecified Qualified Code(s): E03.9 - Hypothyroidism, unspecified (7) History of bladder cancer SNOMED Code(s): 676897210, 278487332 ICD Code: Z85.51 - PERSONAL HISTORY OF MALIGNANT NEOPLASM OF BLADDER Status: Chronic Priority: Low Current Visit: No (8) Pulmonary emboli SNOMED Code(s): 08799433 ICD Code: I26.99 - OTHER PULMONARY EMBOLISM WITHOUT ACUTE COR PULMONALE Status: Acute Priority: High Current Visit: Yes Qualifiers: Pulmonary embolism type: saddle Chronicity: acute Acute cor pulmonale presence: unspecified Qualified Code(s): I26.92 - Saddle embolus of pulmonary artery without acute cor pulmonale (9) Seizure disorder SNOMED Code(s): 498441528 ICD Code: G40.909 - EPILEPSY, UNSP, NOT INTRACTABLE, WITHOUT STATUS EPILEPTICUS Status: Chronic Priority: Low Current Visit: No (10) Hypoxia SNOMED Code(s): 643772112 ICD Code: R09.02 - HYPOXEMIA Status: Acute Priority: High Current Visit: Yes - Patient Summary/Data Consults: Consultations 12/24/20 12:20 Consult to Case Management/Back Joiner [CONS] Routine 12/25/20 10:40 Consult to Occupational Therapy [OT Evaluation and Treatment] [CONS] Routine PT Evaluation and Treatment [CONS] Routine Labs Pending at D/C: Keppra level sent 12/24/20 Recommended Follow-up Testing/Procedures: Follow-up with primary care provider within 5-7 days of discharge, sooner if needed. -recommend repeat CBC, CMP, and magnesium at that visit. Hospital Course: This is an 85-year-old female who resides at [facility][note 3] who presented to ED on 12/24/2020 with worsening shortness of breath. She was requiring 2 L in the ED and had no baseline oxygen at home. She is noted to have baseline dementia and is a hoahaoism none who has a power of reagent tender helper. EKG was obtained showing a sinus rhythm at 67 bpm with no ischemia or signs of RV strain. WBC was mildly elevated at 10.23 on admission. There were no signs of any infection and chest x-ray showed nothing acute. D-dimer was noted to be elevated at 3.[address] of the chest was obtained and showed a small saddle thrombus within the distal left main pulmonary artery extending into the left upper and left lower lobe arteries. No other findings of pulmonary embolism are seen. There is also a single slightly enlarged lymph node within the pretracheal region measuring 2.2 cm but it is noted that given this is the only lymph node change it is likely benign. Other findings were noted but were felt to be nonacute. Initially given a 1 L fluid bolus in the ED. After discovery of the PE she was given a 5200 unit heparin IV bolus and started on a heparin drip per protocol. It was communicated to the patient's power of reagent tender helper that transfer was recommended but she refused and stated the patient would be much more comfortable remaining in the [place] area. She was therefore admitted to the ICU. On the floor she continued to have confusion that waxed and waned. On first day of admission attempted an echocardiogram and bilateral venous Doppler ultrasound of the lower extremities but the patient refused. On the second day patient was more compliant and an cardiogram was obtained on 12/25/2020. This noted: 1. Left ventricular ejection fraction, by visual estimation, is 60 to 65%. 2. Normal left ventricular systolic function 3. Impaired relaxation (grade 1) pattern of LV diastolic filling. 4. Mild to moderate concentric left ventricular hypertrophy. 5. Normal right ventricular systolic function. 6. No evidence of right heart strain. 7. Likely tricuspid aortic valve. 8. Mild aortic valve regurgitation. 9. Trace mitral valve regurgitation. 10. Trace tricuspid valve regurgitation. 11. No regional wall motion abnormalities. Venous Doppler ultrasound of the lower bilateral extremities was obtained and showed no signs of any DVT. Blood cultures remain negative. He does have a history of seizures and a Keppra level was sent but was not returned prior to discharge. Prior to discharge she was transitioned from IV heparin to p.o. Eliquis. She received her first dose of Eliquis while here. She should continue 10 mg twice daily for a total of 7 days and then transition to 5 mg twice daily starting on 01/02/2021. Prescription was sent for the entire 10 mg twice daily regimen and also for 5 days of the 5 mg twice daily regimen to get the patient started. All other home medications were otherwise continued. She should continue PT/OT while at the custodial. Recommend follow-up with PCP within 5 to 7 days of discharge. Recommend repeat CBC, CMP, and magnesium at that appointment. She was weaned off oxygen prior to discharge but SNF staff should monitor oxygen saturations with goal above 92%. Patient may be required to return to oxygen. If this occurs follow-up protocol. She discharged back to [facility]note 3] today. - Patient Instructions Diet: Usual Diet as Tolerated Activity: As Tolerated Driving: Do Not Drive Showering/Bathing: May Shower Notify Provider of: Fever, Increased Pain, Nausea and/or Vomiting Other/Special Instructions: Follow-up with primary care provider within 5-7 days of discharge, sooner if needed. You were started on eliquis, which is a blood thinner for the blood clots in your lung. You will take 10mg twice a day for 7 days total and then switch to 5mg twice a day for at least 6 months. You first day of 5mg treatment will be 01/02/21. Continue PT/OT at [facility]. Monitor oxygen saturations. If saturations drop below 92%, apply oxygen to patient per protocol. Should symptoms return or worsen contact primary care provider or return to the Emergency Department. - Discharge Plan *PRESCRIPTION DRUG MONITORING PROGRAM REVIEWED*: No *COPY OF PRESCRIPTION DRUG MONITORING REPORT IN PATIENT CINDY: No Prescriptions/Med Rec: Apixaban [Eliquis] 10 mg PO BID #26 tablet Apixaban [Eliquis] 5 mg PO BID #10 tablet Home Medications: Home Meds atorvaSTATin [Lipitor] 20 mg PO BEDTIME 04/12/14 [History] Acetaminophen [Mapap] 650 mg PO Q12HR 03/28/19 [History] Dupilumab [Dupixent Syringe] 300 mg SQ ASDIRECTED 03/28/19 [History] Levothyroxine 25 mcg PO DAILY 03/28/19 [History] Lisinopril 5 mg PO DAILY 03/28/19 [History] Nitroglycerin [Nitrostat] 0.4 mg SL ASDIRECTED PRN 03/28/19 [History] Sertraline [Zoloft] 50 mg PO DAILY 03/28/19 [History] levETIRAcetam [Keppra] 250 mg PO BID 03/28/19 [History] Calcium Carbonate [Tums] 1 tab PO ASDIRECTED 12/28/19 [History] Isosorbide Mononitrate [Imdur] 30 mg PO DAILY 12/28/19 [History] Acetaminophen 500 mg PO Q4HR PRN 04/26/20 [History] Donepezil HCl [Aricept] 10 mg PO BEDTIME 04/26/20 [History] Ketotifen Fumarate [Alaway] 1 drop OP BID PRN 04/26/20 [History] Menthol [Biofreeze] 1 applic TP BID PRN 04/26/20 [History] diphenhydrAMINE HCL [Benadryl] 25 mg PO Q8HR PRN 04/26/20 [History] Alum Hydrox/Mag Hydrox/Simeth [Mag-Al Plus] 30 ml PO Q4HR PRN 12/24/20 [History] Dextromethorphan HB/Doxylamine [Safetussin PM] 2 tsp PO Q12HR PRN 12/24/20 [History] Magnesium Hydroxide [Milk of Magnesia] 1 dose PO TID PRN 12/24/20 [History] Apixaban [Eliquis] 5 mg PO BID #10 tablet 12/26/20 [Rx] Apixaban [Eliquis] 10 mg PO BID #26 tablet 12/26/20 [Rx] Oxygen Therapy Mode: Room Air Maintain SpO2% greater than: 92 Patient Handouts: Pulmonary Embolism, Apixaban oral tablets, Venous Thromboembolism Prevention Forms: ED Department Discharge Referrals: Dipesh Vega MD [Primary Care Provider] - - Discharge Summary/Plan Comment DC Time >30 min.: Yes (45 mins ) - General Info Date of Service: 12/26/20 Admission Dx/Problem (Free Text: Admission Diagnosis/Problem Admission Diagnosis/Problem PE, Pulmonary embolism Functional Status: Reports: Pain Controlled, Tolerating Diet, Ambulating, Urinating. Denies: New Symptoms - Review of Systems General: Reports: No Symptoms. Denies: Fever, Weakness, Fatigue, Malaise, Chills HEENT: Reports: No Symptoms. Denies: Headaches, Sore Throat Pulmonary: Reports: No Symptoms. Denies: Shortness of Breath, Pleuritic Chest Pain, Cough, Sputum, Wheezing Cardiovascular: Reports: No Symptoms. Denies: Chest Pain, Palpitations, Dyspnea on Exertion, Edema Gastrointestinal: Reports: No Symptoms. Denies: Abdominal Pain, Constipation, Diarrhea, Nausea, Vomiting Genitourinary: Reports: No Symptoms. Denies: Pain Musculoskeletal: Reports: No Symptoms Skin: Reports: No Symptoms. Denies: Cyanosis Neurological: Reports: Confusion (Baseline) Psychiatric: Reports: No Symptoms - Patient Data Vitals - Most Recent: Last Vital Signs Temp 97.2 F 12/26/20 04:00 Pulse 67 12/24/20 20:00 Resp 16 12/26/20 04:00 BP 158/93 H 12/26/20 09:45 Pulse Ox 95 12/26/20 04:00 Weight - Most Recent: 139 lb I&O - Last 24 hours: Intake & Output 12/25/20 12/26/20 12/26/20 22:59 06:59 14:59 Intake Total 568 141 0 Balance 568 141 0 Lab Results - Last 24 hrs: Laboratory Results - last 24 hr 12/25/20 12/25/20 12/26/20 Range/Units 15:28 21:25 06:25 WBC 7.33 (3.98-10.04) K/mm3 RBC 4.16 (3.98-5.22) M/mm3 Hgb 12.5 (11.2-15.7) gm/dl Hct 38.5 (34.1-44.9) % MCV 92.5 (79.4-94.8) fl MCH 30.0 (25.6-32.2) pg MCHC 32.5 (32.2-35.5) g/dl RDW Std Deviation 40.9 (36.4-46.3) fL Plt Count 245 (182-369) K/mm3 MPV 9.1 L (9.4-12.3) fl Neut % (Auto) 55.0 (34.0-71.1) % Lymph % (Auto) 28.0 (19.3-51.7) % [place] % (Auto) 10.5 (4.7-12.5) % Eos % (Auto) 5.9 H (0.7-5.8) Baso % (Auto) 0.5 (0.1-1.2) % Neut # (Auto) 4.03 (1.56-6.13) K/mm3 Lymph # (Auto) 2.05 (1.18-3.74) K/mm3 [place] # (Auto) 0.77 H (0.24-0.36) K/mm3 Eos # (Auto) 0.43 H (0.04-0.36) K/mm3 Baso # (Auto) 0.04 (0.01-0.08) K/mm3 APTT 58.6 H 56.1 H (21.7-31.4) SECONDS Sodium (136-145) mEq/L Potassium (3.5-5.1) mEq/L Chloride (98-107) mEq/L Carbon Dioxide (21-32) mEq/L Anion Gap (5-15) BUN (7-18) mg/dL Creatinine (0.55-1.02) mg/dL Est Cr Clr Drug Dosing mL/min Estimated GFR (MDRD) (>60) mL/min BUN/Creatinine Ratio (14-18) Glucose (83-115) mg/dL Calcium (8.5-10.1) mg/dL Magnesium (1.8-2.4) mg/dl Total Bilirubin (0.2-1.0) mg/dL AST (15-37) U/L ALT (14-59) U/L Alkaline Phosphatase (46-116) U/L Total Protein (6.4-8.2) g/dl Albumin (3.4-5.0) g/dl Globulin gm/dL Albumin/Globulin Ratio (1-2) SARS-CoV-2 RNA (PO[facility]IMA) (NEGATIVE) 12/26/20 12/26/20 12/26/20 Range/Units 06:25 06:25 09:58 WBC (3.98-10.04) K/mm3 RBC (3.98-5.22) M/mm3 Hgb (11.2-15.7) gm/dl Hct (34.1-44.9) % MCV (79.4-94.8) fl MCH (25.6-32.2) pg MCHC (32.2-35.5) g/dl RDW Std Deviation (36.4-46.3) fL Plt Count (182-369) K/mm3 MPV (9.4-12.3) fl Neut % (Auto) (34.0-71.1) % Lymph % (Auto) (19.3-51.7) % [place] % (Auto) (4.7-12.5) % Eos % (Auto) (0.7-5.8) Baso % (Auto) (0.1-1.2) % Neut # (Auto) (1.56-6.13) K/mm3 Lymph # (Auto) (1.18-3.74) K/mm3 [place] # (Auto) (0.24-0.36) K/mm3 Eos # (Auto) (0.04-0.36) K/mm3 Baso # (Auto) (0.01-0.08) K/mm3 APTT 44.7 H (21.7-31.4) SECONDS Sodium 141 (136-145) mEq/L Potassium 3.4 L (3.5-5.1) mEq/L Chloride 103 (98-107) mEq/L Carbon Dioxide 29 (21-32) mEq/L Anion Gap 12.4 (5-15) BUN 18 (7-18) mg/dL Creatinine 0.8 (0.55-1.02) mg/dL Est Cr Clr Drug Dosing 39.92 mL/min Estimated GFR (MDRD) > 60 (>60) mL/min BUN/Creatinine Ratio 22.5 H (14-18) Glucose 81 L (83-115) mg/dL Calcium 8.6 (8.5-10.1) mg/dL Magnesium 1.9 (1.8-2.4) mg/dl Total Bilirubin 0.3 (0.2-1.0) mg/dL AST 24 (15-37) U/L ALT 25 (14-59) U/L Alkaline Phosphatase 73 (46-116) U/L Total Protein 6.9 (6.4-8.2) g/dl Albumin 3.2 L (3.4-5.0) g/dl Globulin 3.7 gm/dL Albumin/Globulin Ratio 0.9 L (1-2) SARS-CoV-2 RNA (PO[facility]A) Negative (NEGATIVE) NORTH Results - Last 24 hrs: Microbiology 12/24/20 09:15 Aerobic Blood Culture - Preliminary Blood NO GROWTH AFTER 2 DAYS Anaerobic Blood Culture - Preliminary NO GROWTH AFTER 2 DAYS 12/24/20 09:05 Aerobic Blood Culture - Preliminary Blood NO GROWTH AFTER 2 DAYS Anaerobic Blood Culture - Preliminary NO GROWTH AFTER 2 DAYS Med Orders - Current: Current Medications Acetaminophen (Tylenol) 650 mg PO Q4H PRN PRN Reason: Pain (Mild 1-3)/fever Acetaminophen (Tylenol) 650 mg PO Q12HR [facility] Last Admin: 12/26/20 09:46 Dose: 650 mg Documented by: Al Hydroxide/Mg Hydroxide (Mag-Al Plus) 30 ml PO Q4H PRN PRN Reason: Indigestion Apixaban (Eliquis) 10 mg PO BID [facility] Stop: 01/01/21 21:01 Last Admin: 12/26/20 09:40 Dose: 10 mg Documented by: Atorvastatin Calcium (Lipitor) 20 mg PO BEDTIME [facility] Last Admin: 12/25/20 20:09 Dose: 20 mg Documented by: Calcium Carbonate/Glycine (Tums) 500 mg PO Q4H PRN PRN Reason: INDIGESTION/HEARTBURN Docusate Sodium (Colace) 100 mg PO BID PRN PRN Reason: Constipation Donepezil HCl (Aricept) 10 mg PO BEDTIME [facility] Last Admin: 12/25/20 20:08 Dose: 10 mg Documented by: Sodium Chloride (Normal Saline) 100 mls @ 60 mls/hr IV ASDIRECTED [facility] Last Admin: 12/24/20 10:38 Dose: 60 mls/hr Documented by: Isosorbide Mononitrate (Imdur) 30 mg PO DAILY [facility] Last Admin: 12/26/20 09:40 Dose: 30 mg Documented by: Levetiracetam (Keppra) 250 mg PO BID [facility] Last Admin: 12/26/20 09:44 Dose: 250 mg Documented by: Levothyroxine Sodium (Levothyroxine) 25 mcg PO ACBREAKFAST [facility] Last Admin: 12/26/20 05:46 Dose: 25 mcg Documented by: Lisinopril (Prinivil) 5 mg PO DAILY [facility] Last Admin: 12/26/20 09:45 Dose: 5 mg Documented by: Magnesium Hydroxide (Milk Of Magnesia) 30 ml PO TID PRN PRN Reason: Constipation Nitroglycerin (Nitrostat) 0.4 mg SL ASDIRECTED PRN PRN Reason: Chest Pain Ondansetron HCl (Zofran) 4 mg IV Q6H PRN PRN Reason: Nausea/Vomiting Sertraline HCl (Zoloft) 50 mg PO DAILY ROSANGELA Last Admin: 12/26/20 09:40 Dose: 50 mg Documented by: Sodium Chloride (Saline Flush) 10 ml FLUSH ASDIRECTED PRN PRN Reason: Keep Vein Open Last Admin: 12/24/20 10:38 Dose: 10 ml Documented by: Discontinued Medications Heparin Sodium (Porcine) (Heparin Sodium) 5,200 units IVPUSH .BOLUS ONE Stop: 12/24/20 11:14 Last Admin: 12/24/20 11:31 Dose: 5,200 units Documented by: Heparin Sodium (Porcine) (Heparin Sodium) 5,200 units IVPUSH .BOLUS ONE Stop: 12/24/20 11:14 Last Admin: 12/24/20 11:36 Dose: Not Given Documented by: Heparin Sodium (Porcine) (Heparin Sodium) 1,300 units IVPUSH ONETIME ONE Stop: 12/26/20 07:15 Last Admin: 12/26/20 07:35 Dose: 1,300 units Documented by: Sodium Chloride (Normal Saline) 500 mls @ 999 mls/hr IV .BOLUS ONE Stop: 12/24/20 09:06 Last Admin: 12/24/20 09:06 Dose: 999 mls/hr Documented by: Heparin Sodium/Dextrose (Heparin 25,000 Units In D5w 500 Ml) 25,000 units in 500 mls @ 23.743 mls/hr IV TITRATE ROSANGELA; Protocol Last Titration: 12/26/20 08:09 Dose: 0 units/kg/hr, 0 mls/hr Documented by: Iopamidol (Isovue-370 (76%)) 100 ml IVPUSH ONETIME ONE Stop: 12/24/20 10:16 Last Admin: 12/24/20 10:38 Dose: 100 ml Documented by: Non-Formulary Medication (Acetaminophen) 500 mg PO Q4HR PRN PRN Reason: Pain Non-Formulary Medication (Dextromethorphan Hb/Doxylamine [Safetussin Pm]) 2 tsp PO Q12HR PRN PRN Reason: Cough Non-Formulary Medication (Dupilumab [Dupixent Syringe]) 300 mg SQ ASDIRECTED ROSANGELA Non-Formulary Medication (Ketotifen Fumarate) 1 drop OP BID PRN PRN Reason: Dry Eyes Non-Formulary Medication (Menthol [Biofreeze]) 1 applic TP BID PRN PRN Reason: Rash Sodium Chloride (Saline Flush) 10 ml FLUSH ONETIME ONE Stop: 12/24/20 10:16 Last Admin: 12/24/20 11:39 Dose: 10 ml Documented by: - Exam Quality Assessment: Reports: DVT Prophylaxis. Denies: Supplemental Oxygen, Urine Catheter General: Reports: Alert, Cooperative, No Acute Distress. Denies: Oriented HEENT: Reports: Pupils Equal, Pupils Reactive, Mucous Membr. Moist/[place] Neck: Reports: Supple, Trachea Midline Lungs: Reports: Clear to Auscultation, Normal Respiratory Effort, Decreased Breath Sounds Cardiovascular: Reports: Regular Rate, Regular Rhythm GI/Abdominal Exam: Normal Bowel Sounds, Soft, Non-Tender, No Distention (Female) Exam: Deferred Rectal (Female) Exam: Deferred Back Exam: Reports: Normal Inspection, Decreased Range of Motion Extremities: Normal Inspection, Normal Range of Motion, Non-Tender, No Pedal Edema, Normal Capillary Refill Skin: Reports: Warm, Dry, Intact Neurological: Reports: No New Focal Deficit Psy/Mental Status: Reports: Alert
== END 2020-12-26 13:30 | DRG 176 ==
LOC: JD.ED 07:48 → JD.ICU 11:25
PROVIDERS: ADMIT Internal Medicine; ATTEND Internal Medicine
DX: I26.92 Saddle embolus of pulmonary artery without acute cor pulmonale (principal); E78.5 Hyperlipidemia, unspecified; I10 Essential (primary) hypertension; K21.9 Gastro-esophageal reflux disease without esophagitis; F32.89 Other specified depressive episodes; E03.9 Hypothyroidism, unspecified; G40.909 Epilepsy, unspecified, not intractable, without status epilepticus; Z20.822 Contact with and (suspected) exposure to COVID-19; G30.0 Alzheimer's disease with early onset; F02.80 Dementia in other diseases classified elsewhere, unspecified severity, without behavioral disturbance, psychotic disturbance, mood disturbance, and anxiety; I08.3 Combined rheumatic disorders of mitral, aortic and tricuspid valves; H54.7 Unspecified visual loss; Z66 Do not resuscitate; F32.9 Major depressive disorder, single episode, unspecified; E78.00 Pure hypercholesterolemia, unspecified; Z85.51 Personal history of malignant neoplasm of bladder; Z99.81 Dependence on supplemental oxygen; Z88.6 Allergy status to analgesic agent; Z88.0 Allergy status to penicillin; Z88.8 Allergy status to other drugs, medicaments and biological substances; Z79.899 Other long term (current) drug therapy; Z79.890 Hormone replacement therapy; Z90.49 Acquired absence of other specified parts of digestive tract; Z98.49 Cataract extraction status, unspecified eye
CPT/HCPCS: 36415; 71045; 71275; 80053; 80177; 81001; 82728; 83605; 83615; 83880; 84145; 84443; 84484; 85025; 85379; 85610; 85730; 86140; 87040 ×2; 93005; 99285; J7030; Q9967; U0002; 83735; 87641; 93010; 93306; 93970; 93970-26; 99223; 99233; 99239; A9270-GY; J1644

== ENCOUNTER 2021-10-30 17:14 | Emergency (ER) | payer MEDICARE, MEDICAID ==
[2021-10-30 17:23] VITALS: BP 157/90; PULSE 80
[2021-10-30] MEDS ORDERED: diphenhydrAMINE 50 MG/ML SDV IVPUSH PRN (17:51)
[2021-10-30] MEDS ORDERED: Famotidine 20 MG/2 ML SDV IVPUSH PRN (17:51)
[2021-10-30] MEDS ORDERED: EPINEPHrine 1 MG/ML SDV IM PRN (17:51)
[2021-10-30] MEDS ORDERED: methylPREDNISolone Sodium Succinate 125 MG/2 ML SDV IVPUSH PRN (17:51)
[2021-10-30] MEDS ORDERED: Sodium Chloride 0.9% 10 ML Syringe FLUSH SCH (18:00)
--- NOTE | 2021-10-30 19:25 | EDM.PDOC ---
ED HPI GENERAL MEDICAL PROBLEM - General Chief Complaint: Respiratory Problem Stated Complaint: [facility] Time Seen by Provider: 10/30/21 17:17 Source of Information: Reports: Patient, [facility] Records, RN Notes Reviewed History Limitations: Reports: No Limitations - History of Present Illness INITIAL COMMENTS - FREE TEXT/NARRATIVE: Patient is an 86-year-old female presenting to ER from the [facility] due to diagnosis of COVID. She tested positive for COVID this morning with routine testing. Patient states that she feels tired but has no other symptoms. [facility] states that she was sent here because they "are not equipped to care for patients with COVID ". To my knowledge, patient did not receive COVID vaccination as there is no documentation in her [facility] records of this. She has no chest pain or shortness of breath. Denies any nausea vomiting or diarrhea. snf reports that her oxygen saturation and other vital signs have been stable throughout the day. - Related Data Allergies Allergy/AdvReac Type Severity Reaction Status Date / Time aspirin Allergy Severe Swollen Verified 10/30/21 17:19 Tongue Penicillins Allergy Severe Swollen Verified 10/30/21 17:19 Tongue phenytoin sodium AdvReac Severe Weakness Verified 10/30/21 17:19 [From Dilantin] phenytoin sodium extended AdvReac Severe Weakness Verified 10/30/21 17:19 [From Dilantin] Home Meds: Home Meds atorvaSTATin [Lipitor] 20 mg PO BEDTIME 04/12/14 [History] Acetaminophen [Mapap] 650 mg PO Q12HR 03/28/19 [History] Dupilumab [Dupixent Syringe] 300 mg SQ ASDIRECTED 03/28/19 [History] Levothyroxine 25 mcg PO DAILY 03/28/19 [History] Lisinopril 5 mg PO DAILY 03/28/19 [History] Nitroglycerin [Nitrostat] 0.4 mg SL ASDIRECTED PRN 03/28/19 [History] Sertraline [Zoloft] 50 mg PO DAILY 03/28/19 [History] levETIRAcetam [Keppra] 250 mg PO BID 03/28/19 [History] Calcium Carbonate [Tums] 1 tab PO ASDIRECTED 12/28/19 [History] Isosorbide Mononitrate [Imdur] 30 mg PO DAILY 12/28/19 [History] Acetaminophen 500 mg PO Q4HR PRN 04/26/20 [History] Donepezil HCl [Aricept] 10 mg PO BEDTIME 04/26/20 [History] Ketotifen Fumarate [Alaway] 1 drop OP BID PRN 04/26/20 [History] Menthol [Biofreeze] 1 applic TP BID PRN 04/26/20 [History] diphenhydrAMINE HCL [Benadryl] 25 mg PO Q8HR PRN 04/26/20 [History] Alum Hydrox/Mag Hydrox/Simeth [Mag-Al Plus] 30 ml PO Q4HR PRN 12/24/20 [History] Dextromethorphan HB/Doxylamine [Safetussin PM] 2 tsp PO Q12HR PRN 12/24/20 [History] Magnesium Hydroxide [Milk of Magnesia] 1 dose PO TID PRN 12/24/20 [History] Apixaban [Eliquis] 5 mg PO BID #10 tablet 12/26/20 [Rx] Apixaban [Eliquis] 10 mg PO BID #26 tablet 12/26/20 [Rx] Past Medical History HEENT History: Reports: Impaired Vision Cardiovascular History: Reports: Angina, High Cholesterol, Hypertension Respiratory History: Reports: None Gastrointestinal History: Reports: GERD Other Genitourinary History: bladder tumor removed--TURBT. 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: Reports: None Musculoskeletal History: Reports: Other (See Below) Other Musculoskeletal History: Bone Density disorder Neurological History: Reports: Alzheimers Disease, Seizure Other Neuro History: epilepsy Psychiatric History: Reports: Dementia, Depression Endocrine/Metabolic History: Reports: Hypothyroidism Hematologic History: Reports: None Immunologic History: Reports: None Oncologic (Cancer) History: Reports: Bladder Dermatologic History: Reports: Other (See Below) Other Dermatologic History: very dry and flakey skin - Infectious Disease History Infectious Disease History: Reports: Novel Coronavirus - Past Surgical History HEENT Surgical History: Reports: Cataract Surgery, Tonsillectomy GI Surgical History: Reports: Appendectomy Female Surgical History: Reports: TURBT Social & Family History - Family History Family Medical History: No Pertinent Family History - Tobacco Use Tobacco Use Status *Q: Never Tobacco User - Caffeine Use Caffeine Use: Reports: None - Living Situation & Occupation Living situation: Reports: Single, Extended Care Facility ([facility]) 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) ED ROS GENERAL - Review of Systems Review Of Systems: See Below Constitutional: Reports: Fatigue. Denies: Fever, Chills HEENT: Reports: No Symptoms Respiratory: Reports: No Symptoms. Denies: Shortness of Breath, Cough Cardiovascular: Reports: No Symptoms. Denies: Chest Pain Endocrine: Reports: No Symptoms GI/Abdominal: Reports: No Symptoms : Reports: No Symptoms Musculoskeletal: Reports: No Symptoms Skin: Reports: No Symptoms Neurological: Reports: No Symptoms Psychiatric: Reports: No Symptoms Hematologic/Lymphatic: Reports: No Symptoms Immunologic: Reports: No Symptoms ED EXAM, GENERAL - Physical Exam Exam: See Below General Appearance: Alert, WD/WN, No Apparent Distress Respiratory/Chest: No Respiratory Distress, Lungs Clear, Normal Breath Sounds, No Accessory Muscle Use, Chest Non-Tender Cardiovascular: Normal Peripheral Pulses, Regular Rate, Rhythm, No Edema, No Gallop, No JVD, No Murmur, No Rub GI/Abdominal: Normal Bowel Sounds, Soft, Non-Tender, No Organomegaly, No Distention, No Abnormal Bruit, No Mass Neurological: Alert, Oriented, Normal Cognition, Normal Gait, Normal Reflexes, No Motor/Sensory Deficits Psychiatric: Normal Affect, Normal Mood Skin Exam: Warm, Dry, Intact, Normal Color, No Rash Course - Vital Signs Text/Narrative:: Patient is an 86-year-old female presenting to the emergency department from [facility] for positive COVID test. With the exception of feeling tired, she has no other COVID symptoms. Exam is unremarkable. Lung sounds are clear. Oxygen saturation 94 to 95% on room air. She is afebrile. I have ordered blood work and chest x-ray. I did call and speak with her power of finance attorney, Sister Tanya, to discuss monoclonal antibody therapy. I spoke with POA to provide information about Regeneron treatment for patient I stated the drug has been approved by an emergency use authorization (EUA) process and has not fully been FDA reviewed or approved The patient meets the EUA requirements I discussed there are other potential treatment options that are currently not FDA approved to treat COVID-19. Offered opportunity to ask questions and all questions were answered POA voiced understanding and agreed to proceed with treatment for patient. Last Recorded V/S: Last Vital Signs Temp 98.7 F 10/30/21 17:19 Pulse 80 10/30/21 17:19 Resp 15 10/30/21 17:19 BP 157/90 H 10/30/21 17:19 Pulse Ox 94 L 10/30/21 17:19 - Orders/Labs/Meds Orders: Active Orders 24 hr Category Date Time Status Chest 1V Frontal [CR] Stat Exams 10/30/21 17:44 Taken Labs: Laboratory Tests 10/30/21 10/30/21 Range/Units 18:30 18:30 WBC 7.15 (3.98-10.04) K/mm3 RBC 3.86 L (3.98-5.22) M/mm3 Hgb 11.7 (11.2-15.7) gm/dl Hct 36.9 (34.1-44.9) % MCV 95.6 H D (79.4-94.8) fl MCH 30.3 (25.6-32.2) pg MCHC 31.7 L (32.2-35.5) g/dl RDW Std Deviation 43.9 (36.4-46.3) fL Plt Count 206 (182-369) K/mm3 MPV 9.1 L (9.4-12.3) fl Neut % (Auto) 75.5 H (34.0-71.1) % Lymph % (Auto) 11.2 L (19.3-51.7) % Mcdowell % (Auto) 11.3 (4.7-12.5) % Eos % (Auto) 1.5 (0.7-5.8) Baso % (Auto) 0.4 (0.1-1.2) % Neut # (Auto) 5.39 (1.56-6.13) K/mm3 Lymph # (Auto) 0.80 L (1.18-3.74) K/mm3 Mcdowell # (Auto) 0.81 H (0.24-0.36) K/mm3 Eos # (Auto) 0.11 (0.04-0.36) K/mm3 Baso # (Auto) 0.03 (0.01-0.08) K/mm3 Sodium 143 (136-145) mEq/L Potassium 4.1 (3.5-5.1) mEq/L Chloride 106 (98-107) mEq/L Carbon Dioxide 27 (21-32) mEq/L Anion Gap 14.1 (5-15) BUN 23 H (7-18) mg/dL Creatinine 0.8 (0.55-1.02) mg/dL Est Cr Clr Drug Dosing TNP Estimated GFR (MDRD) > 60 (>60) mL/min BUN/Creatinine Ratio 28.8 H (14-18) Glucose 100 H (70-99) mg/dL Calcium 9.2 (8.5-10.1) mg/dL Total Bilirubin 0.4 (0.2-1.0) mg/dL AST 17 (15-37) U/L ALT 24 (14-59) U/L Alkaline Phosphatase 71 (46-116) U/L C-Reactive Protein 1.1 H* (<1.0) mg/dL Total Protein 6.8 (6.4-8.2) g/dl Albumin 3.5 (3.4-5.0) g/dl Globulin 3.3 gm/dL Albumin/Globulin Ratio 1.1 (1-2) Meds: Medications Discontinued Medications Generic Name Dose Route Start Last Admin Trade Name Freq PRN Reason Stop Dose Admin Diphenhydramine HCl 50 mg 10/30/21 17:51 Diphenhydramine 50 Mg/Ml Sdv IVPUSH ASDIRECTED PRN hypersensitivity reaction Epinephrine HCl 0.3 mg 10/30/21 17:51 Epinephrine 1 Mg/Ml Sdv IM ASDIRECTED PRN hypersensitivity reaction Famotidine 20 mg 10/30/21 17:51 Famotidine 20 Mg/2 Ml Sdv IVPUSH ASDIRECTED PRN hypersensitivity reaction CASIRIVIMAB/IMDEVIMAB 10 ml/ 110 mls @ 220 mls/hr 10/30/21 17:51 10/30/21 18:33 Sodium Chloride IV 10/30/21 18:20 220 mls/hr ONETIME ONE Administration Methylprednisolone Sodium Succinate 125 mg 10/30/21 17:51 Methylprednisolone Sodium Succinate 125 Mg/2 Ml Sdv IVPUSH ASDIRECTED PRN hypersensitivity reaction Sodium Chloride 30 ml 10/30/21 18:00 Sodium Chloride 0.9% 10 Ml Syringe FLUSH ASDIRECTED ROSANGELA - Re-Assessments/Exams Free Text/Narrative Re-Assessment/Exam: Patient is an 86-year-old female presenting to the emergency department from [facility] for positive COVID test. With the exception of feeling tired, she has no other COVID symptoms. Exam is unremarkable. Lung sounds are clear. Oxygen saturation 94 to 95% on room air. She is afebrile. I have ordered blood work and chest x-ray. I did call and speak with her power of finance attorney, Sister Tanya, to discuss monoclonal antibody therapy. I spoke with POA to provide information about Regeneron treatment for patient I stated the drug has been approved by an emergency use authorization (EUA) process and has not fully been FDA reviewed or approved The patient meets the EUA requirements I discussed there are other potential treatment options that are currently not FDA approved to treat COVID-19. Offered opportunity to ask questions and all questions were answered POA voiced understanding and agreed to proceed with treatment for patient. 10/30/212004 Hematology is overall unremarkable. Chest x-ray shows no evidence of pneumonia. Patient has completed Regeneron infusion and 1 hour waiting period without adverse events. [facility] Discharge instructions as documented. Departure - Departure Time of Disposition: 20:05 Disposition: DC/Tfer to SNF 03 Condition: Good Clinical Impression: COVID-19 - Discharge Information *PRESCRIPTION DRUG MONITORING PROGRAM REVIEWED*: No *COPY OF PRESCRIPTION DRUG MONITORING REPORT IN PATIENT CINDY: No Instructions: COVID-19 Referrals: Dipesh Vega MD [Primary Care Provider] - Forms: ED Department Discharge Additional Instructions: Pamela was seen in the emergency department today for evaluation after testing positive for COVID. Chest x-ray was completed and found to be normal. Blood w ork was also found to be within normal limits. While in the ER, she received an infusion of monoclonal antibodies. Recommend continuing her previously prescribed medications. If she should develop low oxygen saturations or any other concerning symptoms, please not hesitate to return her to the emergency department for reevaluation. Sepsis Event Note (ED) - Evaluation Sepsis Screening Result: No Definite Risk - Focused Exam Vital Signs: Vital Signs Temp Pulse Resp BP Pulse Ox 10/30/21 17:19 98.7 F 80 15 157/90 H 94 L - My Orders Last 24 Hours: My Active Orders 10/30/21 17:44 Chest 1V Frontal [CR] Stat - Assessment/Plan Last 24 Hours: My Active Orders 10/30/21 17:44 Chest 1V Frontal [CR] Stat
--- NOTE | 2021-10-31 09:38 | CR ---
EXAM: XR CHEST 1 VIEW LOCATION: [facility] DATE/TIME: 10/30/2021 5:59 PM INDICATION: Cough and influenza b positive COMPARISON: None. IMPRESSION: Hazy ill-defined increased interstitial opacities left lung base possibly relating to underlying infectious or inflammatory etiologies versus atelectasis. No consolidation. Right lung clear. No pneumothorax or significant pleural fluid collection. Mild cardiac enlargement. Normal pulmonary vascularity. Tortuous and calcified thoracic aorta. Severe degenerative changes left glenohumeral joint. Right shoulder arthroplasty. Degenerative changes in the spine. SIGNED BY: Mauri Mata MD 10/30/2021 10:38 PM KEVIN
== END 2021-10-30 20:50 ==
LOC: JD.ED 17:14
DX: U07.1 COVID-19 (principal); E78.00 Pure hypercholesterolemia, unspecified; I10 Essential (primary) hypertension; K21.9 Gastro-esophageal reflux disease without esophagitis; E03.9 Hypothyroidism, unspecified; Z79.899 Other long term (current) drug therapy; Z79.01 Long term (current) use of anticoagulants; Z88.0 Allergy status to penicillin; Z88.8 Allergy status to other drugs, medicaments and biological substances
CPT/HCPCS: 36415; 71045; 80053; 85025; 86140; 99284; M0243; Q0243

== ENCOUNTER 2021-11-09 10:50 | Emergency (ER) | payer MEDICARE, MEDICAID ==
[2021-11-09] MEDS ORDERED: Sodium Chloride 0.9% 500 ML IV STA (11:20)
[2021-11-09 14:07] VITALS: BP 120/71; PULSE 83
== END 2021-11-09 13:55 | disposition home or self-care (01) ==
LOC: JD.ED 10:50
DX: U07.1 COVID-19 (principal); E78.00 Pure hypercholesterolemia, unspecified; I10 Essential (primary) hypertension; R56.9 Unspecified convulsions; E03.9 Hypothyroidism, unspecified; Z88.8 Allergy status to other drugs, medicaments and biological substances; Z88.0 Allergy status to penicillin; Z79.01 Long term (current) use of anticoagulants; Z79.899 Other long term (current) drug therapy
CPT/HCPCS: 36415; 71045; 80053; 81001; 83605; 83735; 85025; 85379; 86140; 99285; J7030

== ENCOUNTER 2021-12-20 10:19 | Emergency (ER) | payer MEDICARE, MEDICAID ==
[2021-12-20 10:44] VITALS: BP 99/61; PULSE 64
[2021-12-20] MEDS ORDERED: Doxycycline 100 MG Cap PO ONE (13:02)
[2021-12-20] MEDS ORDERED: Lactated Ringers 1,000 ML IV SCH (13:30)
[2021-12-20] MEDS ORDERED: Sodium Chloride 0.9% 10 ML Syringe FLUSH PRN (13:57)
[2021-12-20] MEDS ORDERED: Iopamidol 755 Mg/ML 100 ML Bottle IVPUSH ONE (13:57)
[2021-12-20] MEDS ORDERED: Sodium Chloride 0.9% 100 ML IV SCH (14:00)
== END 2021-12-20 17:20 ==
LOC: JD.ED 10:19
DX: T17.990A Other foreign object in respiratory tract, part unspecified in causing asphyxiation, initial encounter (principal); R09.02 Hypoxemia; E78.00 Pure hypercholesterolemia, unspecified; I10 Essential (primary) hypertension; E03.9 Hypothyroidism, unspecified; Z90.49 Acquired absence of other specified parts of digestive tract; Z88.6 Allergy status to analgesic agent; Z88.0 Allergy status to penicillin; Z88.8 Allergy status to other drugs, medicaments and biological substances; Z79.899 Other long term (current) drug therapy
CPT/HCPCS: 36415; 71045; 71275; 80053; 83605; 84484; 85025; 85379; 87040; 87804; 93005; 94667; 99285; A9270; J7120; Q9967; 93010